=== PATIENT | male | born 1965 | race Caucasian/White ===

== ENCOUNTER 2021-07-13 17:00 | Inpatient (IN) | payer SELFPAY ==
[2021-07-13] VITALS (21 sets, daily range): BP systolic 92–174; BP diastolic 68–99; PULSE 55–108; RESP 12–22; TEMP 36.7–36.8; O2SAT 95–100; BMI 23.7
--- NOTE | 2021-07-13 17:03 | ECG_ITS ---
Measurements Intervals [place] Rate: 53 P: 8 OR: 164 QRS: -3 QRSD: 102 T: 21 QT: 403 QTc: 378 Interpretive Statements SINUS BRADYCARDIA VOLTAGE CRITERIA FOR LVH INFERIOR ST ELEVATION MYOCARDIAL INJURY- SUBACUTE ABNORMAL ECG Electronically Signed On 07-13-2021 17:49:45 CDT by Eran Orellana D.O.
--- NOTE | 2021-07-13 17:03 | ED.CHESTPAIN ---
HPI - Chest Pain General Chief Complaint: Chest Pain Stated Complaint: STEMI Source: RN notes reviewed History of Present Illness HPI narrative: Patient presents emergency department from home via EMS for chest pain. Patient states chest pain began 2 AM this morning. Pain is located over the left side of the chest described as a heaviness in nature the pain does not radiate associate with mild shortness of breath. Patient states he not take anything for the pain at home he denies any previous cardiac history but states he does have cardiac history in the family denies any fevers or chills abdominal pain nausea or vomiting Related Data Allergies Allergy/AdvReac Type Severity Reaction Status Date / Time Penicillins Allergy Unknown Unknown Verified 07/13/21 17:04 Review of Systems Review of Systems: Gen.: Denies fevers or chills ENT: Denies congestion Respiratory: Reports mild shortness of breath CV: See HPI GI: Denies abdominal pain nausea, emesis or diarrhea Musculoskeletal: Denies back pain or muscle pain Neuro: Denies numbness, tingling, weakness or focal weakness Skin: Denies rash Except as documented, all other systems reviewed and negative [facility] Past Medical History Medical History (Updated 07/13/21 @ 17:14 by Jey De Dios DO) Hypertension Family History Family History (Updated 07/13/21 @ 17:34 by Dom Dong MD) Father Acute myocardial infarction Social History Social History (Updated 07/13/21 @ 17:34 by Dom Dong MD) Smoking status: Never smoker Alcohol intake: current Substance use: never Exam Narrative: APPEARANCE: No acute distress, nontoxic, resting in bed EYES: EOMI HEENT: Normocephalic, atraumatic, OMM RESPIRATORY: No respiratory distress Clear to auscultation bilaterally with no rhonchi wheezing or rales. CARDIOVASCULAR: Regular rate and rhythm without murmurs rubs or gallops. ABDOMINAL: Soft, nontender, nondistended, no rebound or guarding MUSCULOSKELETAl: Moves all extremities. No clubbing, cyanosis or edema. NEURO: Awake and alert. Following commands, speech normal, no focal deficits SKIN:: Warm, dry. No rashes lesions or abrasions PSYCHIATRIC: Normal affect/mood, Course Course Emergency Course: Code STEMI declared by myself upon initial EMS call Called discussed with Dr. dong per cardiology will come in to take patient to Waste Treatment Operator. Request patient be started on heparin bolus as well as Brilinta 180 mg and Lipitor 80 mg x 1 Updated with patient and family plan for Waste Treatment Operator in agreement at this time Vital Signs Vital signs: Vital Signs Temperature 98.3 F 07/13/21 17:07 Pulse Rate 55 L 07/13/21 17:07 Respiratory Rate 17 07/13/21 17:07 Blood Pressure 139/86 07/13/21 17:07 Pulse Oximetry 98 07/13/21 17:07 Temperature 98.3 F 07/13/21 17:07 Pulse Rate 55 L 07/13/21 17:07 Respiratory Rate 17 07/13/21 17:07 Blood Pressure 139/86 07/13/21 17:07 Pulse Oximetry 98 07/13/21 17:07 MDM - Chest Pain Lab Data Result diagrams: 07/13/21 17:14 07/13/21 17:14 Labs: Lab Results 07/13/21 07/13/21 07/13/21 Range/Units 17:14 17:14 17:14 WBC 5.3 (4.5-10.0) K/mm3 RBC 4.26 L (4.6-6.20) M/mm3 Hgb 13.2 L (14.0-18.0) g/dL Hct 38.4 L (42.0-52.0) % MCV 90.1 (80-100) fl MCH 31.0 (26-34) pg MCHC 34.4 (32-36) g/dl RDW 12.2 (11.5-14.5) % Plt Count 218 (150-375) k/mm3 MPV 10.3 (7.4-10.4) fl Immature Gran % (Auto) 0.2 (0-0.5) % Neut % (Auto) 58.0 (45.5-73.1) % Lymph % (Auto) 27.4 (18.3-44.2) % [place] % (Auto) 13.3 H (2.6-8.5) % Eos % (Auto) 0.9 (0-4.4) % Baso % (Auto) 0.2 (0.2-1.2) % Lymph # (Auto) 1.46 (0.9-3.2) K/mm3 [place] # (Auto) 0.7 H (0.1-0.6) K/mm3 Eos # (Auto) 0.1 (0-0.3) K/mm3 Baso # (Auto) 0.0 (0.0-0.1) K/mm3 Abs Immat Gran (auto) 0.01 (0.00-0.031) K/mm3 Absolute Neuts (auto) 3.1 (1.3-6.7) K/mm3 Absolu
[2021-07-13] MEDS: HEPARIN SODIUM 5,000 UNITS/ML VIAL 4000 UNITS IV PUSH (17:19)
[2021-07-13] MEDS: TICAGRELOR 90 MG TABLET 180 MG PO (17:20)
[2021-07-13 17:23] LABS: Basophils Percent Auto 0.2 % (0.2-1.2); Eosinophils Absolute Auto 0.1 K/mm3 (0-0.3); Eosinophils Percent Auto 0.9 % (0-4.4); Hematocrit 38.4 % (42.0-52.0); Hemoglobin 13.2 g/dL (14.0-18.0); Immature Granulocyte Absolute 0.01 K/mm3 (0.00-0.031); Immature Granulocyte Percent A 0.2 % (0-0.5); Lymphocytes Absolute Auto 1.46 K/mm3 (0.9-3.2); Lymphocytes Percent Auto 27.4 % (18.3-44.2); Mean Corpuscular HGB Conc 34.4 g/dl (32-36); Mean Corpuscular Volume 90.1 fl (80-100); Mean Platelet Volume 10.3 fl (7.4-10.4); Monocytes Absolute Auto 0.7 K/mm3 (0.1-0.6); Monocytes Percent Auto 13.3 % (2.6-8.5); Neutrophils Absolute Auto 3.1 K/mm3 (1.3-6.7); Platelet Count Result 218 k/mm3 (150-375); Red Blood Count 4.26 M/mm3 (4.6-6.20); Red Cell Distribution Width 12.2 % (11.5-14.5); White Blood Count 5.3 K/mm3 (4.5-10.0)
--- NOTE | 2021-07-13 17:27 | PM.IMHP ---
H&P: HPI History of Present Illness Date/Time: 07/13/21 17:27 Date of Service: 07/13/2021 Chief complaint: Chest pain for approximately 17 hours HPI: 55-year-old male with hypertension, no known prior personal cardiac history; family history of CAD. Patient was brought to [facility] Emergency Room via EMS this afternoon with complaints of chest pain that started about 2:00 a.m. last night. Patient states that the chest pain was initially intermittent, followed by more persistent chest pain associated with shortness of breath and dizziness. He denied any palpitation, loss of consciousness . He denies any personal history of known CAD. His EKG showed sinus bradycardia, heart rate 53 beats per minute, ST-elevation in the inferior leads. Cardiac catheterization lab was activated for primary PCI. At the time of evaluation in the cardiac cath lab technologist, patient had ongoing chest discomfort. Prior to arrival to the cardiac cath lab technologist, patient had received aspirin, 4000 units of heparin bolus, 180 mg p.o. Ticagrelor. Patient states that he was diagnosed with hypertension several years ago, and has not seen a physician for many years. He states that he takes amlodipine at home. Patient is a nonsmoker, denies excess alcohol illicit drugs. Patient underwent emergent coronary angiogram which showed 100% thrombotic occlusion of distal IHZ-[id number]-yvfirli vessel with diffuse calcific stenosis in the proximal-mid segments of the RCA. He underwent complex PCI with balloon angioplasty and stenting of distal, mid and proximal segments of the RCA with placement of 3 sirolimus eluting stents in overlapping fashion from distal to proximal ( 3.0 x 35 mm, 3.5 x 35 mm, 4.0 x 30 mm) with good angiographic and intravascular ultrasound results and quaker of KA[place]LYNN 3 flow. Patient's chest pain resolved after a successful PCI. Chief Complaint: Chest pain Review of Systems Review of Systems: General: Negative for fever, chills, fatigue Psychological: Negative for anxiety, depression Ophthalmic: negative for loss of vision ENT: Negative for epistaxis, headaches Allergy and immunology: Negative for hives, nasal congestion Hematologic and lymphatic: Negative for overt bleeding problems Endocrine: Negative for hot flashes, palpitations Respiratory: Negative for cough, hemoptysis Cardiovascular: Positive for chest pain and shortness of breath; positive for dizziness Gastrointestinal: Negative for abdominal pain, nausea, vomiting, hematochezia Musculoskeletal: Negative for myalgia, joint pains Neurological: Negative for weakness Dermatological: Negative for rash, skin discoloration [facility] Past Medical History Medical History (Updated 07/13/21 @ 17:14 by Jey De Dios DO) Hypertension Family History Family History (Updated 07/13/21 @ 17:34 by Dom Haynes MD) Father Acute myocardial infarction Social History Social History (Updated 07/13/21 @ 17:34 by Dom Haynes MD) Smoking status: Never smoker Alcohol intake: current Substance use: never Meds Home Medications and Allergies Allergies Allergy/AdvReac Type Severity Reaction Status Date / Time Penicillins Allergy Unknown Unknown Verified 07/13/21 17:04 Vital Signs Vital Signs - 24 hr 07/13/21 17:07 Temperature 36.8 C Pulse Rate 55 L Respiratory Rate 17 Blood Pressure 139/86 Pulse Oximetry 98 Exam Narrative: PHYSICAL EXAMINATION: GENERAL: Alert, oriented, no acute distress MENTAL STATUS: anxious EYES: Extraocular movements intact, no pallor EARS: External ears appear normal, hearing grossly normal NOSE: Normal and patent, no discharge MOUTH: Mucous membranes moist, tongue normal NECK: Supple, no JVD CHEST: Good respiratory effort, clear to auscultation HEART: Normal rate, regular rhythm, normal S1 and S2, S4 gallop ABDOMEN: Soft, nontender NEUROLOGICAL: Alert, oriented, normal speech, no gross motor deficits MUSCULOSKELETAL: No major deformit
[2021-07-13 17:39] LABS: INR 0.9; Prothrombin Time 12.5 Seconds (11.1-14.7)
[2021-07-13 17:44] LABS: Anion Gap 9 mmol/L (8-16); Blood Urea Nitrogen 13 mg/dL (9-20); Calcium 8.8 mg/dL (8.4-10.2); Carbon Dioxide 24 mmol/L (22-30); Chloride 105 mmol/L (98-107); Estimated CRCL calculation 90 ml/min; Estimated Glomerular Filt Rate > 60; Glucose 159 mg/dL (65-110); Potassium 3.8 mmol/L (3.4-5.0); Sodium 138 mmol/L (137-145)
[2021-07-13 18:00] LABS: Troponin I 0.158 ng/mL (0.000-0.034)
--- NOTE | 2021-07-13 19:01 | WPDCARDPROC ---
Cardiac Cath Procedure Note Date of procedure:: 07/13/21 Performing physician:: Dom Haynes MD Procedure Procedure note:: EMERGENT CARDIAC CATHETERIZATION AND PERCUTANEOUS CORONARY INTERVENTION REPORT DATE OF PROCEDURE: 07/13/2021 INDICATION FOR PROCEDURE: INFERIOR ST-ELEVATION MYOCARDIAL INFARCTION BRIEF CLINICAL HISTORY:55-year-old male with hypertension, no known prior personal cardiac history; family history of CAD. Patient was brought to [facility] Emergency Room via EMS this afternoon with complaints of chest pain that started about 2:00 a.m. last night. Patient stateD that the chest pain was initially intermittent, followed by more persistent chest pain associated with shortness of breath and dizziness. He denied any palpitation, loss of consciousness . He denieD any personal history of known CAD. His EKG showed sinus bradycardia, heart rate 53 beats per minute, ST-elevation in the inferior leads. Cardiac catheterization lab was activated for primary PCI. At the time of evaluation in the veterinarian laboratory animal care prior to primary PCI, patient had ongoing chest discomfort. Prior to arrival to the veterinarian laboratory animal care, patient had received aspirin, 4000 units of heparin bolus, 180 mg p.o. Ticagrelor. PROCEDURES PERFORMED: 1. Emergent Left heart catheterization- Selective left and right coronary angiogram; left ventriculogram and hemodynamic assessment 2. Percutaneous coronary intervention- a) complex primary PCI with balloon angioplasty and stenting of occluded distal; diffusely diseased mid and proximal segments of the RCA with placement of 3 Biotronik sirolimus eluting stents in overlapping fashion from distal to proximal ( 3.0 x 35 mm, 3.5 x 35 mm, 4.0 x 30 mm) with good angiographic and intravascular ultrasound results, and presybeterian of KAITLYNN 3 flow b) intravascular ultrasound ( IVUS) of right coronary artery 3. Selective right common femoral angiogram 4. Moderate sedation-CPT code 29206 MODERATE SEDATION: Midazolam 1 mg; fentanyl 25 mcg. Start time 1737 , Stop time 1847 ; Total [id number] time 70 minutes; Adriana Granger RN was trained observer for moderate sedation. ACCESS SITE: Right common femoral artery PROCEDURE NOTE: After obtaining informed consent, patient was brought to catheterization lab and prepped and draped in a usual sterile manner. After local anesthesia with lidocaine, right common femoral artery access was taken with micropuncture needle followed by insertion of a 6 Swedish sheath. Selective left and right coronary angiogram was performed using 5 Swedish JL4 diagnostic catheter and JR4 guide catheter respectively. Orthogonal views were taken. After completion of PCI, a 5 Swedish pigtail catheter was advanced in the LV cavity and was flushed with normal saline. LV pressure measurement was performed. After this, left ventriculogram was performed. The catheter was flushed again, and gradient across the aortic valve was measured on the pullback of the catheter. FINDINGS: LEFT MAIN CORONARY: medium to large caliber vessel, no angiographically significant focal stenosis. The vessel gives rise to tortuous LAD and left circumflex branch. LEFT ANTERIOR DESCENDING ARTERY: the LAD is a medium caliber, tortuous vessel with diffuse about 50% stenosis in the proximal segment. The vessel tapers and reaches LV apex. First diagonal branch is a small to medium caliber vessel with high-grade about 90% stenosis in the proximal segment. Second diagonal branch is a medium caliber vessel without significant focal stenosis. LEFT CIRCUMFLEX ARTERY: The left circumflex artery is a medium caliber vessel with mild diffuse disease in the proximal segment. The vessel gives rise to medium caliber tortuous OM 1 branch with minor irregularities, and small caliber OM2 branch. Faint left to right collaterals are seen. RIGHT CORONARY ARTERY: The right coronary artery is a medium to large caliber vessel with diffuse about 60-70% stenosis in the p
--- NOTE | 2021-07-13 20:01 | PC.NURSE ---
Patient arrived to room ICU bed 8 at 1924. Bedside report received by the floor surfacer team RN.
--- NOTE | 2021-07-13 20:02 | ADMGEN ---
This patient, Justin Beck, was admitted to Intensive Care Unit-8 at 1925 from the laboratory engineer. Patient/family oriented to hospital policies and general routines including ID bracelet, bed and alarms, visiting hours, pain management, procedures, bathroom and other care routines, personal items, smoking policy, room service/diet, and visiting hours. Information on how to activate the Rapid Response Team has been discussed. Patient/Family are encouraged to report perceived risks to care and to ask questions if they do not understand what they are told or what they should do.
[2021-07-13] MEDS: SODIUM CHLORIDE 0.9% IV 1,000 ML 100 ML IV CONT (20:10)
[2021-07-13 21:52] LABS: Cholesterol 246 mg/dL (0-200); HDL Direct 40 mg/dL; Triglycerides 288 mg/dL (<150)
[2021-07-13] MEDS: METOPROLOL TARTRATE 25 MG TABLET PO (22:00)
[2021-07-13] MEDS: ATORVASTATIN 40 MG TABLET 80 MG PO (22:00)
[2021-07-13] MEDS: TICAGRELOR 90 MG TABLET (22:01)
[2021-07-13 22:03] LABS: LDL Cholesterol Direct 146 mg/dL
[2021-07-14] VITALS (19 sets, daily range): BP systolic 127–153; BP diastolic 79–99; PULSE 56–87; RESP 12–18; TEMP 36.8–37.2; O2SAT 93–99
[2021-07-14] MEDS: TICAGRELOR 90 MG TABLET PO ×2 (06:59→21:02)
[2021-07-14] MEDS: ASPIRIN 81 MG ENTERIC TABLET PO (08:41)
[2021-07-14] MEDS: METOPROLOL TARTRATE 25 MG TABLET PO ×2 (08:41→21:03)
[2021-07-14] MEDS: ATORVASTATIN 40 MG TABLET 80 MG PO (08:41)
[2021-07-14] MEDS: LOSARTAN POTASSIUM 25 MG TABLET PO (08:41)
--- NOTE | 2021-07-14 10:06 | PM.PNCARD ---
Progress Note: A&P Assessment and Plan (1) ST elevation (STEMI) myocardial infarction: Code(s): I21.3 - ST elevation (STEMI) myocardial infarction of unspecified site Status: Acute Assessment and Plan: Inferior STEMI 07/13/2021 requiring 3 drug-eluting stents. Good LV function. Stable overnight, will transfer to IMU. Reviewed heart healthy diet, need for dual anti-platelet therapy, other cardiac medications, exercise, etc. Probably discharge tomorrow. Patient will not be able to afford Brilinta. Likely will switch to Plavix at some point. (2) Hypertension: Code(s): I10 - Essential (primary) hypertension Status: Acute Assessment and Plan: Reasonable though not perfectly controlled at this time (3) Hyperlipidemia: Code(s): E78.5 - Hyperlipidemia, unspecified Status: Acute Assessment and Plan: Reviewed hyperlipidemia was patient, now on high-dose statin therapy. (4) Elevated blood sugar: Code(s): R73.9 - Hyperglycemia, unspecified Status: Acute Assessment and Plan: Elevated blood sugar on admission. Will recheck tomorrow and include an A1c. Subjective Date/time seen: 07/14/21 10:06 Follow-up for inferior STEMI. Admitted 07/13/2021 with acute inferior myocardial infarction. Had an occluded distal RCA with diffuse disease of the proximal mid segments requiring 3 drug-eluting stents by Dr. Haynes. EF 70% with inferior wall hypokinesis. Diffuse 50% proximal Left anterior descending stenosis, 90% stenosis of small to medium 1st diagonal. Date of service 07/14/2021. Doing well overnight with no chest discomfort or arrhythmias. Reviewed diet, enjoys burgers and fries fried foods, heavily sweetened beverages. Review of Systems Constitutional: Constitutional: Reports fatigue (Did not sleep well) ENT: Denies epistaxis Cardiovascular: Cardiovascular: Denies chest pain, Denies pedal edema, Denies leg edema and Denies palpitations Respiratory: Respiratory: Denies chest congestion and Denies dyspnea Gastrointestinal: Gastrointestinal: Denies abdominal pain Musculoskeletal: Musculoskeletal: Reports no additional musculoskeletal complaints Integumentary/Breasts: Skin/Breast: Reports system reviewed and no additional complaints, except as docu Neurologic: Reports system reviewed and no additional complaints, except as documented Exam Narrative: Pleasant alert male in no distress Const: General: comfortable and no acute distress HENMT: General nose exam: no epistaxis Eyes: EOM: EOMs intact bilaterally Neck: Neck: supple Resp: Effort & Inspection: normal respiratory effort Auscultation: clear to auscultation bilaterally Cardio: Rate: regular rate Rhythm: regular rhythm Heart sounds: no murmurs GI: GI Palp: Yes Soft to palpation and No Tenderness to palpation present (GI) Neuro: Cognition (Neuro): normal cognition Speech: normal speech Motor exam (neuro): Normal motor muscle tone present throughout Extrem: General: no edema and no pedal edema Other: Cath site right femoral artery is without ecchymosis or hematoma Psych: Mental Status: mental status grossly normal Affect: normal affect Objective Data Vital Signs Vital Signs: Vital Signs - 24 hr 07/13/21 17:07 07/13/21 19:25 07/13/21 19:33 Temperature 98.3 F 98.1 F Pulse Rate 56 L 95 108 H Pulse Rate [Bilateral Pedal (Dorsalis Pedis) Palpation] Respiratory Rate 17 16 18 Blood Pressure 139/86 149/99 H 161/87 H Pulse Oximetry 98 100 98 07/13/21 19:48 07/13/21 20:00 07/13/21 20:03 Temperature 98.3 F Pulse Rate 96 95 95 Pulse Rate [Bilateral Pedal (Dorsalis Pedis) Palpation] Respiratory Rate 14 15 17 Blood Pressure 161/82 H 174/99 H 174/99 H Pulse Oximetry 100 98 98 07/13/21 20:18 07/13/21 20:48 07/13/21 21:18 Te
--- NOTE | 2021-07-14 11:07 | WPDCNINT ---
Assessment and Plan Assessment and plan (1) ST elevation (STEMI) myocardial infarction: Code(s): I21.3 - ST elevation (STEMI) myocardial infarction of unspecified site Status: Acute Assessment and Plan: STEMI status post PTCA/PCI with LYNSEY x3 to mid and proximal segments of RCA, EF 60-70% pain overall LV systolic function being preserved -preserved LV function -chest pain free -continue dual antiplatelet therapy, high-dose statin, losartan beta-harriet -cardiology following the patient (2) Hyperlipidemia: Code(s): E78.5 - Hyperlipidemia, unspecified Status: Acute Assessment and Plan: High-dose statin (3) Hypertension: Code(s): I10 - Essential (primary) hypertension Status: Acute Assessment and Plan: Continue losartan and beta-harriet Additional Plan Discussed with patient updated with his condition and care. He is very happy with the care he has received at [facility] in the ICU Code status: Full code Care time spent: 41 minutes This dictation may have been done utilizing a voice recognition system. Attempts have been made to correct errors. However, there may be uncorrected grammatical, spelling, and recognition errors present. Due to a high probability of clinically significant, life threatening deterioration, the patient required my highest level of preparedness to intervene emergently and I personally spent this critical care time directly and personally managing the patient. This critical care time included obtaining a history; examining the patient; pulse oximetry; ordering and review of studies; arranging urgent treatment with development of a management plan; evaluation of patient's response to treatment; frequent reassessment; and discussions with other providers. It was exclusive of separately billable procedures and treating other patients and teaching time. Please see Assessment and Plan section and the rest of the note for further information on patient assessment and treatment Locker Room Manager Consult Note Consult date: 07/14/21 Time Seen: 07:09 Reason for consult: STEMI status post PTCA/PCI with LYNSEY x3 to mid and proximal segments of RCA, EF 60-70% pain overall LV systolic function being preserved HPI: Justin Beck is a 55 year old male past medical history of hypertension, history of coronary artery disease presented the ED with substernal chest pain, associated with shortness of breath, dizziness. He denies any radiation, nausea, vomiting. EKG revealed acute inferior myocardial injury. Was taken to the laboratory phlebotomist any found to have an diffuse disease off mid and proximal segments of RCA, status post PTCA/PCI with balloon angioplasty and LYNSEY x3 with good angiographic result. EF on ventriculogram was 60-70% with preserved LV systolic function. Patient was transferred to the ICU for further management 07/14/2021: Patient seen examined the ICU this morning. Very pleasant personality, denies any chest pain, shortness of breath, abdominal pain, nausea vomiting at this time. Patient states he does not smoke drinks alcohol occasionally and denies any illicit drug use. 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 Hemodynamically stable, afebrile, adequate urine output Review of Systems Review of Systems: All systems reviewed & are unremarkable except as noted in HPI and below PMFSH Past Medical History Medical History (Updated 07/14/21 @ 10:10 by Sarahy Sifuentes MD) Hyperlipidemia Hypertension Family History Family History (Updated 07/14/21 @ 10:25 by Sarahy Sifuentes MD) Father Acute myocardial infarction 1st heart attack at age 68, had several stents, valve replacement of dementia Mother Murmur, cardiac Social History Social History (Updated 07/14/21 @ 10:25 by Sarahy Sifuentes MD) Social History: [employer]s [employer] Smoking status: Never smoker Second hand tobacco smoke exposure: Yes Alcohol intake: current
[2021-07-14] MEDS: diphenhydrAMINE HCl CAP 25 MG CAPSULE PO (22:21)
[2021-07-15] VITALS (8 sets, daily range): BP systolic 112–137; BP diastolic 87–96; PULSE 56–74; RESP 12–18; TEMP 36.6–36.9; O2SAT 96–98
[2021-07-15 04:27] LABS: Hemoglobin A1C 5.8 % (<5.7)
[2021-07-15 04:29] LABS: Anion Gap 6 mmol/L (8-16); Blood Urea Nitrogen 12 mg/dL (9-20); Calcium 9.1 mg/dL (8.4-10.2); Carbon Dioxide 27 mmol/L (22-30); Chloride 107 mmol/L (98-107); Estimated CRCL calculation 82 ml/min; Estimated Glomerular Filt Rate > 60; Glucose 105 mg/dL (65-110); Sodium 140 mmol/L (137-145)
[2021-07-15] MEDS: ATORVASTATIN 40 MG TABLET 80 MG PO (09:43)
[2021-07-15] MEDS: METOPROLOL TARTRATE 25 MG TABLET PO (09:43)
[2021-07-15] MEDS: LOSARTAN POTASSIUM 25 MG TABLET PO (09:43)
[2021-07-15] MEDS: ASPIRIN 81 MG ENTERIC TABLET PO (09:43)
[2021-07-15] MEDS: TICAGRELOR 90 MG TABLET PO (09:44)
--- NOTE | 2021-07-15 09:45 | PM.DS ---
DS: Admitting Diagnosis Discharge Date 07/15/2021 Admitting Diagnosis Chest pain DS: Discharge Diagnosis Discharge Diagnosis (1) ST elevation (STEMI) myocardial infarction: Code(s): I21.3 - ST elevation (STEMI) myocardial infarction of unspecified site Status: Acute Assessment and Plan: Inferior STEMI 07/13/2021 requiring 3 drug-eluting stents. No acute events overnight Medical therapy with ASA, high dose statin, losartan, metoprolol. On Brilinta now but cannot afford this as an outpatient. Will shift him to Plavix. Reviewed dietary modifications, aerobic exercise, importance of medication compliance. Review echo results when available. He is stable and appropriate for discharge home today. (2) Hypertension: Code(s): I10 - Essential (primary) hypertension Status: Acute Assessment and Plan: Well controlled at this point (3) Hyperlipidemia: Code(s): E78.5 - Hyperlipidemia, unspecified Status: Acute Assessment and Plan: On high dose statin therapy. (4) Elevated blood sugar: Code(s): R73.9 - Hyperglycemia, unspecified Status: Acute Assessment and Plan: Elevated blood sugar on admission. A1c 5.8. DS: Summary Hospital Course Hospital Course: Patient presented to the emergency department via EMS with complaints of chest pain that had been ongoing since early the previous morning. In the emergency department his EKG showed sinus bradycardia with ST elevation in the inferior leads. Therefore, he was emergently taken to the cardiac catheterization lab for left heart catheterization and primary PCI. He was found to have 100% occlusion of the distal RCA. He also had diffuse stenosis of the proximal LAD, high-grade 90% stenosis in the proximal segment of a small to medium caliber 1st diagonal branch, and mild diffuse disease of the proximal circumflex. His overall left ventricular 6. Left ventricular function was preserved, ejection fraction about 60-70% with inferior wall hypokinesis. He underwent complex PTCA and stenting of the occluded distal RCA, diffusely diseased mid and proximal segments of the RCA with placement of three overlapping Biotronik sirolimus eluting stents. There was a good angiographic result with restorationist of KAITLYNN 3 flow. He recovered as expected in the ICU without any postprocedural complications. He has been stable and free from any chest pain or other cardiovascular complaints. He is stable for discharge home today. Time Spent with Patient Time attestation: Total time spent providing and/or coordinating discharge services: Time spent: Greater than 30 minutes Exam Narrative: Pleasant alert male in no distress Const: General: comfortable and no acute distress HENMT: General nose exam: no epistaxis Eyes: EOM: EOMs intact bilaterally Neck: Neck: supple Resp: Effort & Inspection: normal respiratory effort Auscultation: clear to auscultation bilaterally Cardio: Rate: regular rate Rhythm: regular rhythm Heart sounds: no murmurs Neuro: Cognition (Neuro): normal cognition Speech: normal speech Motor exam (neuro): Normal motor muscle tone present throughout Extrem: General: no edema and no pedal edema Other: Cath site right femoral artery free from hematoma, bleeding, bruit. Mild, small area of ecchymosis. Psych: Mental Status: mental status grossly normal Affect: normal affect DS: Data Data Completed and Pending Completed studies during hospitalization: Echocardiogram 07/15/2021 1. Complete two-dimensional, color flow and Doppler transthoracic echocardiogram is performed. 2. Strain analysis performed. 3. Left ventricular chamber dimension is normal. 4. Left ventricular systolic function is normal, estimated at 55-60%. 5. There is mildly increased left ventricular wall thicknes
--- NOTE | 2021-07-15 10:32 | ECHO_ITS ---
Patient Info Name: Justin Beck Age: 55 years : 1965 Gender: Male Ht: 73 in Wt: 180 lbs BSA: 2.05 m2 HR: 60 bpm BP: 137 / 87 mmHg Heart Rhythm: Sinus Rhythm Exam Date: 07/15/2021 8:50 AM Exam Location: [facility] Patient Status: Inpatient Admit Date: 07/13/2021 Staff Ordering Physician: Sarahy Sifuentes MD Uniform Cap Operator: Glynn Latham, MICHELLE, RT Attending Provider: Dom Haynes MD Referring Physician: Bear OVERTON; Exam Type: CA echo doppler color flow Study Info Indications I24.0 - Acute coronary thrombosis not resulting in myocardial infarction Complete two-dimensional, color flow and Doppler transthoracic echocardiogram is performed. Strain analysis performed. Summary 1. Complete two-dimensional, color flow and Doppler transthoracic echocardiogram is performed. 2. Strain analysis performed. 3. Left ventricular chamber dimension is normal. 4. Left ventricular systolic function is normal, estimated at 55-60%. 5. There is mildly increased left ventricular wall thickness. 6. The left ventricular diastolic function is grade I diastolic dysfunction. 7. Global longitudinal strain is abnormal at -12 %. 8. The basal inferior wall, and basal inferoseptal are hypokinetic. 9. There is mild tricuspid valve regurgitation. Left Ventricle Left ventricular chamber dimension is normal. Left ventricular systolic function is normal, estimated at 55-60%. There is mildly increased left ventricular wall thickness. The left ventricular diastolic function is grade I diastolic dysfunction. Global longitudinal strain is abnormal at -12 %. The basal inferior wall, and basal inferoseptal are hypokinetic. All other schafer appear normal. Right Ventricle Right ventricular chamber dimension is normal. Right ventricular systolic function is normal. Left Atria Left atrial chamber dimension is normal. Right Atria Right atrial chamber dimension is normal. Atrial Septum Intact interatrial septum visualized by color flow imaging. Aortic Valve The aortic valve is trileaflet. There is mild aortic valve sclerosis. There is no aortic valve stenosis. There is trace aortic valve regurgitation. Pulmonic Valve The pulmonic valve is normal. There is no pulmonic valve stenosis. There is trace pulmonic regurgitation. Mitral Valve The mitral valve has normal leaflets. There is no mitral valve stenosis. There is trace mitral valve regurgitation. Tricuspid Valve The tricuspid valve leaflets are normal. There is no significant tricuspid valve stenosis. There is mild tricuspid valve regurgitation. Pericardium/Pleural The pericardium appears normal. There is no pericardial effusion. Inferior Vena Cava Normal inferior vena cava with >50% collapse upon inspiration consistent with normal right atrial pressure, 5 mmHg. Aorta The aortic root size at the sinus of Valsalva is normal. Left Ventricular Outflow Tract Name Value Normal LVOT 2D LVOT Diameter 2.0 cm LVOT Doppler LVOT Peak Gradient 3 mmHg LVOT Mean Gradient 2 mmHg
== END 2021-07-15 12:40 | disposition home or self-care (01) | DRG 174 ==
LOC: ANHED 17:17 → ANHICU 07-14 08:27
PROVIDERS: Internal Medicine Cardiovascular Disease; Admitting Provider Internal Medicine Cardiovascular Disease; Emergency Provider Emergency Medicine; PCP Emergency Medicine; Visit Provider Internal Medicine Cardiovascular Disease
PROC: 4A023N7 Measurement of Cardiac Sampling and Pressure, Left Heart, Percutaneous Approach (ICD-10-PCS; CPT 93452; principal; 2021-07-13 17:05)
PROC: 027036Z Dilation of Coronary Artery, One Artery with Three Drug-eluting Intraluminal Devices, Percutaneous Approach (ICD-10-PCS; 2021-07-13 17:05)
PROC: 027036Z Dilation of Coronary Artery, One Artery with Three Drug-eluting Intraluminal Devices, Percutaneous Approach (ICD-10-PCS; 2021-07-13 17:05)
DX: I21.11 ST elevation (STEMI) myocardial infarction involving right coronary artery (principal); I10 Essential (primary) hypertension; I25.10 Atherosclerotic heart disease of native coronary artery without angina pectoris; E78.5 Hyperlipidemia, unspecified; R73.9 Hyperglycemia, unspecified
CPT/HCPCS: 36415; 80048; 80061; 83036; 84484; 85025; 85610; 85730; 92978; 93005; 93306; 93458; 96374; 99291; A9270; C1725; C1753; C1769; C1874; C1887; C1894; C9606; J0583; J1644; J2250; J3010; J7030; J7040

== ENCOUNTER 2022-12-18 09:13 | Outpatient (CLI) | payer SELFPAY ==
--- NOTE | 2022-12-18 | EST_ITS ---
Patient Info Name: Justin Beck Age: 57 years : 1965 Gender: Male Ht: 74 in Wt: 180 lbs BSA: 2.06 m2 HR: 75 bpm BP: 169 / 108 mmHg Heart Rhythm: Sinus Rhythm Exam Date: 12/18/2022 10:38 AM Exam Location: [facility] Stress Patient Status: Outpatient Admit Date: 12/18/2022 Staff Ordering Physician: Dom Hanyes MD Attending Provider: Dom Haynes MD Exercise Technologist: Anna Marcos CT Nurse: broderick whitlock Exam Type: CA stress test treadmill w NM Study Info Indications I25.720 - Atherosclerosis of autologous artery coronary artery bypass graft(s) with unstable angina pectoris A nuclear stress test was performed. Summary 1. No abnormal ST-T wave changes with lexiscan. 2. Resting hypertension, 169/108, with a hypertensive blood pressure response to exercise, 223/102 mmHg. 3. Markedly decreased exercise tolerance, only 4.16 minutes achieved. 4. Nuclear test results to follow. Protocol: Scot Stress ECG Details Stage: REST Duration (min): 2 min : 5 sec Speed (mph): 0.0 Grade (%): 0 HR (bpm): 77 SBP (mmHg): 169 DBP (mmHg): 108 METS: --- Stage: REST Duration (min): 6 min : 10 sec Speed (mph): 0.0 Grade (%): 0 HR (bpm): 79 SBP (mmHg): 169 DBP (mmHg): 108 METS: --- Stage: STAGE 1 Duration (min): 1 min : 0 sec Speed (mph): 1.7 Grade (%): 10 HR (bpm): 95 SBP (mmHg): 169 DBP (mmHg): 108 METS: --- Stage: STAGE 1 Duration (min): 2 min : 0 sec Speed (mph): 1.7 Grade (%): 10 HR (bpm): 110 SBP (mmHg): 169 DBP (mmHg): 108 METS: --- Stage: STAGE 1 Duration (min): 3 min : 0 sec Speed (mph): 1.7 Grade (%): 10 HR (bpm): 122 SBP (mmHg): 210 DBP (mmHg): 106 METS: --- Stage: STAGE 2 Duration (min): 1 min : 0 sec Speed (mph): 2.5 Grade (%): 12 HR (bpm): 136 SBP (mmHg): 210 DBP (mmHg): 106 METS: --- Stage: STAGE 2 Duration (min): 1 min : 16 sec Speed (mph): 2.5 Grade (%): 12 HR (bpm): 139 SBP (mmHg): 210 DBP (mmHg): 106 METS: --- Stage: RECOVERY Duration (min): 0 min : 43 sec Speed (mph): 0.0 Grade (%): 0 HR (bpm): 125 SBP (mmHg): 217 DBP (mmHg): 100 METS: --- Stage: RECOVERY Duration (min): 1 min : 43 sec Speed (mph): 0.0 Grade (%): 0 HR (bpm): 109 SBP (mmHg): 217 DBP (mmHg): 100 METS: --- Stage: RECOVERY Duration (min): 2 min : 43 sec Speed (mph): 0.0 Grade (%): 0 HR (bpm): 93 SBP (mmHg): 223 DBP (mmHg): 102 METS: --- Stage: RECOVERY Duration (min): 3 min : 43 sec Speed (mph): 0.0 Grade (%): 0 HR (bpm): 90 SBP (mmHg): 223 DBP (mmHg): 102 METS: --- Stage: RECOVERY Duration (min): 4 min : 43 sec Speed (mph): 0.0 Grade (%): 0 HR (bpm): 89 SBP (mmHg): 223 DBP (mmHg): 102 METS: --- Stage:
--- NOTE | ~2022-12-18 | NM_ITS ---
EXAMINATION: NM octavio stress w perfusion DATE: 12/18/2022 11:42 INDICATION: Coronary atherosclerosis of lumbee artery of lumbee heart with stable angina. TECHNIQUE: Rest images were obtained following intravenous administration of 10.3 mCi Tc99m tetrofosm in (Myoview). The patient was infused intravenously with Lexiscan (regadenoson). Then, 32.6 mCi Tc99m tetrofosmin (Myoview) was administered intravenously, and stress images were obtained. Data was terry nstructed into short axis and horizontal and vertical long axis SPECT images. Gated SPECT images were also obtained. COMPARISON: None. FINDINGS: There is no definite reversible or fixed perfusion abnormality to suggest ischemia or infar ction. There is no segmental wall motion abnormality. Left ventricular ejection fraction measures 6 7%. IMPRESSION: 1. No definite ischemia or infarct. 2. Normal left ventricular ejection fraction measuring 67%. Reviewed, dictated and finalized at location A. [facility]
== END 2022-12-18 09:14 | disposition home or self-care (01) ==
PROVIDERS: PCP Emergency Medicine; Visit Provider Internal Medicine Cardiovascular Disease
DX: I25.118 Atherosclerotic heart disease of native coronary artery with other forms of angina pectoris (principal); I25.2 Old myocardial infarction; Z95.820 Peripheral vascular angioplasty status with implants and grafts
CPT/HCPCS: 78452; 93017; A9502

== ENCOUNTER 2023-04-28 14:12 | Inpatient (IN) | payer SELFPAY ==
[2023-04-28] VITALS (29 sets, daily range): BP systolic 155–214; BP diastolic 94–122; PULSE 68–95; RESP 11–20; TEMP 36.4–36.9; O2SAT 95–100; BMI 23.2
--- NOTE | ~2023-04-28 | XR_ITS ---
EXAMINATION: XR chest 2V DATE: 04/28/2023 14:36 INDICATION: Left anterior chest pain. TECHNIQUE: Frontal and lateral views of the chest were obtained. COMPARISON: None. FINDINGS: There is mild scarring at the lung apices. No pleural effusion or pneumothorax. The heart s ize is normal. There is a moderate-sized hiatal hernia. IMPRESSION: 1. Moderate-sized hiatal hernia. Reviewed, dictated and finalized at location A.
--- NOTE | ~2023-04-28 | CT_ITS ---
EXAMINATION: CT abdomen pelvis w con DATE: 04/28/2023 15:43 INDICATION: Blood in stool. TECHNIQUE: Computed tomography (CT) of the abdomen and pelvis was performed with 100 mL Omnipaque 350 intravenous contrast. Automated exposure control and iterative reconstruction technique were employe d. The dose-length product was 391.51 mGy-cm. COMPARISON: None. FINDINGS: The visualized portions of the lung bases demonstrate mild atelectasis. A calcified right l david nodule is consistent with old granulomatous disease. No pleural effusion. The heart size is amanda l. There are coronary artery calcifications. No pericardial effusion. There is a moderate-sized slidi ng hiatal hernia. There are cysts in the liver measuring up to 4 mm. Calcifications in the liver and spleen are consistent with old granulomatous disease. The gallbladder, pancreas, adrenal glands, and right kidney are normal. There are 2 mm and 3 mm stones in the left kidney. There is a 2.0 cm cyst in left kidney. The prostate is moderately enlarged. There are no dilated loops of bowel. The appendix is normal. There are no pathologically enlarged lymph nodes. There is calcified atherosclerosis of th e aorta and many of the other arteries. There is no free intraperitoneal fluid. There is a supraumbil ical ventral hernia containing fat. There is mild thoracolumbar spondylosis. There is mild chronic an terior wedging of T11-L1 vertebral bodies. IMPRESSION: 1. Moderate-sized sliding hiatal hernia. 2. Supraumbilical ventral hernia containing fat. Reviewed, dictated and finalized at location A.
--- NOTE | 2023-04-28 14:13 | ECG_ITS ---
Measurements Intervals [place] Rate: 74 P: 23 SD: 172 QRS: -17 QRSD: 94 T: 21 QT: 356 QTc: 397 Interpretive Statements SINUS RHYTHM LEFT VENTRICULAR HYPERTROPHY AND ST-T CHANGE INFERIOR ST ELEVATION MYOCARIDAL INFARCT- SUBACUTE ABNORMAL ECG COMPARED TO ECG 07/13/2021 17:05:38 SINUS RHYTHM NOW PRESENT Electronically Signed On 04-28-2023 14:49:24 CDT by Eran Orellana D.O.
--- NOTE | 2023-04-28 14:49 | ED.CHESTPAIN ---
HPI - Chest Pain General Chief Complaint: Chest Pain Stated Complaint: having a heart attack Time Seen by Provider: 04/28/23 14:23 History of Present Illness HPI narrative: 57-year-old male presenting with chest pain that started this morning, he states that it does feel like the last and he had a heart attack, he does report that the last few days he has been noticing dark stools and some bleeding, however he did not want to come into the hospital, he was out of town for a wedding and decided to stop taking his aspirin and Plavix because he was thinking that it would help with the bleeding. He does endorse diaphoresis, pain that seems to radiate down to his left arm, feels like when he had a heart attack here 2 years ago Related Data Allergies Allergy/AdvReac Type Severity Reaction Status Date / Time Penicillins Allergy Unknown Unknown Verified 04/28/23 14:22 Review of Systems Review of Systems: CONST: No fever. HEENT: No sore throat C/V: Chest pain RESP: Difficulty breathing GI: Lower GI bleed, nausea : No dysuria. M/S: Left hip SKIN: No rash. NEURO: [No headache or focal numbness or weakness] PSYCH: [No depression] [facility] Past Medical History Medical History Hyperlipidemia Hypertension Family History Family History Father Acute myocardial infarction 1st heart attack at age 68, had several stents, valve replacement of dementia Mother Murmur, cardiac Social History Social History Social History: Orbotix Smoking status: Never smoker Second hand tobacco smoke exposure: Yes Alcohol intake: current Drinks per week: 4 Substance use: current Substance use type: does not use Spiritual care concerns: No Exam Narrative: EXAMINATION OF ORGAN SYSTEMS/BODY AREAS: Constitutional: Vital signs per nursing GENERAL:[No acute distress, non-toxic appearing.] HEAD: Normal with no signs of head trauma. EYES: EOMI, conjunctiva normal ENT: Hearing grossly intact LUNGS: Nonlabored breathing. HEART: [Regular rate and rhythm] ABD: [Soft], [nontender to palpation] RECTAL: There is watery brown stool on exam which is hemoccult positive EXT: Normal range of motion SKIN: [No rashes or lesions.] NEURO: [Alert and oriented x 3. No gross focal sensory or strength deficits.] PSYCH: Normal affect Course Vital Signs Vital signs: Vital Signs Temperature 98.5 F 04/28/23 14:18 Pulse Rate 77 04/28/23 14:18 Respiratory Rate 16 04/28/23 14:18 Blood Pressure 205/103 H 04/28/23 14:18 Pulse Oximetry 100 04/28/23 14:18 Oxygen Delivery Room Air 04/28/23 14:18 Temperature 98.5 F 04/28/23 14:18 Pulse Rate 74 04/28/23 16:21 Respiratory Rate 14 04/28/23 16:21 Blood Pressure 191/109 H 04/28/23 16:21 Pulse Oximetry 100 04/28/23 16:21 Oxygen Delivery Room Air 04/28/23 14:18 MDM - Chest Pain MDM Narrative Medical decision making narrative: ED COURSE AND MEDICAL DECISION MAKINyoM presenting with chest pain and LGIB. EKG done in triage on my evaluation showing elevations in inferior leads and depression in avL; his only prior EKG is from 2020 when he had greater inferior lead elevation and less avL depression and was found to have STEMI with 100% occlusion in RCA and stented. Given this EKG I am quite concerned for acute abnormality, did immediately go see the patient however he had already had, chest x-ray, I did therefore paged cardiology on-call however had not received any response back, by this time the patient had returned from x-ray and I was able to elicit the history that he had a lower GI bleed, and had also noted hemoccult + stool on exam; his history does appear quite concerning so I did activate laborer livestock. Dr Perez did evaluate EKG at bedside and felt
--- NOTE | 2023-04-28 14:50 | PC.NURSE ---
Cardiology in room to see pt.
[2023-04-28 14:53] LABS: Basophils Percent Auto 0.4 % (0.2-1.2); Eosinophils Percent Auto 0.8 % (0-4.4); Hematocrit 44.3 % (42.0-52.0); Hemoglobin 14.9 g/dL (14.0-18.0); Immature Granulocyte Absolute 0.01 K/mm3 (0.00-0.031); Immature Granulocyte Percent A 0.2 % (0-0.5); Lymphocytes Absolute Auto 1.02 K/mm3 (0.9-3.2); Lymphocytes Percent Auto 20.7 % (18.3-44.2); Mean Corpuscular HGB Conc 33.6 g/dl (32-36); Mean Corpuscular Volume 95.1 fl (80-100); Mean Platelet Volume 10.4 fl (7.4-10.4); Monocytes Absolute Auto 0.6 K/mm3 (0.1-0.6); Monocytes Percent Auto 11.2 % (2.6-8.5); Neutrophils Absolute Auto 3.3 K/mm3 (1.3-6.7); Neutrophils Percent Auto 66.7 % (45.5-73.1); Platelet Count Result 213 k/mm3 (150-375); Red Blood Count 4.66 M/mm3 (4.6-6.20); Red Cell Distribution Width 12.9 % (11.5-14.5); White Blood Count 4.9 K/mm3 (4.5-10.0)
[2023-04-28 15:03] LABS: INR 0.9; Prothrombin Time 12.1 Seconds (11.1-14.7)
[2023-04-28 15:17] LABS: Partial Thromboplastin Time < 20.0 SECONDS (22.3-36.8)
--- NOTE | 2023-04-28 15:21 | PM.CNCAR ---
Assessment and Plan Assessment and plan (1) Chest pain due to CAD: Code(s): I25.119 - Atherosclerotic heart disease of syc[place] coronary artery with unspecified angina pectoris Status: Acute Assessment and Plan: He has no multivessel coronary artery disease involving the RCA, LAD, 1st diagonal branch, and the circumflex artery. He has been having intermittent chest pain for the past month with an episode of more severe chest pain earlier today. His EKG showed subtle ST elevation in lead III and ST depression in aVL, but no acute ischemic changes consistent with STEMI. These changes are consistent with his prior inferior IN. No indication for emergent coronary angiogram, furthermore, not a candidate for angiogram/poss. PCI at this time in the setting of GI bleeding. His first troponin level is negative. Repeat EKG if he has recurrence of chest pain. SL nitro p.r.n. Restart home medications of Ranexa, Imdur. Since he is reporting blood in stools but Hgb stable, can hold plavix but continue ASA. Continue to trend troponin. (2) Coronary artery disease: Code(s): I25.10 - Atherosclerotic heart disease of syc[place] coronary artery without angina pectoris Status: Acute Assessment and Plan: As above. (3) Hyperlipidemia: Code(s): E78.5 - Hyperlipidemia, unspecified Status: Acute Assessment and Plan: Continue statin (4) Hypertension: Code(s): I10 - Essential (primary) hypertension Status: Acute Assessment and Plan: Above goal. He has not been taking his antihypertensives for the past few days. Restart home medications of losartan and metoprolol. History of Present Illness History of Present Illness Consult date/time: 04/28/23 15:21 Requesting physician: Shelly Marshall MD Consult reason: chest pain Reason For Visit: LGIB/Chest Pain Narrative: Justin Beck is a 57 year old male with coronary artery disease with a history of inferior ST-elevation IN in July 2021 status post stenting of the distal, mid, and proximal RCA with placement of 3 drug-eluting stents. Since his intervention, he has reported chest discomfort intermittently which prompted a nuclear stress test to be performed earlier this year which was negative for ischemia. He presents to the emergency department today with a chief complaint of chest pain. The patient states that he has had enter mid and chest pain for the past month. Chest pain is not associated with exertion and seems to be somewhat random. The chest pain was worse today which is what prompted him to present to the emergency department. He also states that for the past week or so he has been passing blood in his stools. Because of this, he decided to discontinue all of his medications including his aspirin and Brilinta this past Thursday. He ss being kept on dual anti-platelet therapy for longer than the standard one year period because of his multivessel disease involving multiple coronary territories. Prior to this, he does not report any missed doses of medication. He denies any palpitations, shortness of breath, syncope, presyncope. At the time of my visit with him he is free from any chest pain and is resting comfortably on a stretcher in the emergency department. Review of Systems Review of Systems: All systems reviewed & are unremarkable except as noted in HPI and below PMFSH Past Medical History Medical History (Updated 04/29/23 @ 07:07 by Emerson Moore MD) History of ST elevation myocardial infarction (STEMI) Hyperlipidemia Hypertension Surgical History Surgical History H/O heart artery stent 3 drug-eluting stents RCA July 2021 Family History Family History Father Acute myocardial infarction 1st heart attack at age 68, had several stents, valve replacement of dementi
[2023-04-28 15:25] LABS: Alanine Aminotransferase 42 U/L (6-50); Albumin Level 4.6 g/dL (3.5-5.1); Alkaline Phosphatase 69 U/L (38-126); Anion Gap 9 mmol/L (8-16); Aspartate Amino Transferase 32 U/L (17-59); Bilirubin,Total 0.5 mg/dL (0.2-1.3); Blood Urea Nitrogen 11 mg/dL (9-20); Calcium 9.3 mg/dL (8.4-10.2); Carbon Dioxide 29 mmol/L (22-30); Chloride 102 mmol/L (98-107); Estimated CRCL calculation 89 ml/min; Estimated Glomerular Filt Rate > 60; Glucose 122 mg/dL (65-110); Lipase 179 U/L (23-300); Potassium 3.7 mmol/L (3.4-5.0); Sodium 140 mmol/L (137-145)
[2023-04-28 15:36] LABS: Troponin I 0.025 ng/mL (0.000-0.034)
[2023-04-28] MEDS: ASPIRIN 81 MG CHEWABLE TABLET 324 MG PO (16:34)
[2023-04-28] MEDS: PANTOPRAZOLE SODIUM IV 40 MG VIAL IV PUSH (16:34)
[2023-04-28 17:37] LABS: Troponin I 0.249 ng/mL (0.000-0.034)
[2023-04-28] MEDS: NITROGLYCERIN SL 0.4 MG TABLET SUBLINGUAL (18:35)
--- NOTE | 2023-04-28 18:46 | PC.NURSE ---
This patient, Justin Beck, was admitted to IMU Room 202- From ED via stretcher at 1845. Patient/family oriented to hospital policies and general routines including ID bracelet, bed and alarms, visiting hours, pain management, procedures, bathroom and other care routines, personal items, smoking policy, room service/diet, and visiting hours. Information on how to activate the Rapid Response Team has been discussed. Patient/Family are encouraged to report perceived risks to care and to ask questions if they do not understand what they are told or what they should do.
--- NOTE | 2023-04-28 19:04 | PM.IMHP ---
H&P: HPI History of Present Illness Date/Time: 04/28/23 19:04 Chief Complaint: chest pain Narrative: This is a 57-year-old male patient who has had a history of coronary artery disease with 3 cardiac stents. The patient stated he had awaiting to go to an Thursday and he stopped taking his Plavix an aspirin and he did admit to drinking on Thursday. The patient stated on Thursday he did feel very well he felt very fatigued. Then he noticed that he had dark stools and some bleeding. Patient did not come the hospital at that time. The patient stated that he does have times where he has blood in his stool no lows all on its own. The patient was complaining of chest pain today that radiated down his left arm. The patient stated that he had his last stent 2 years ago and this feels similar to when he was having his cardiac event then. The patient is currently pain-free. Initial troponin was nonreactive. The 2nd troponin was 0.249. And the 3rd 1 is 9.0. Cardiology has been consulted. It was noted per ED note that the patient had EKG changes. His last EKG shows a STEMI with an occlusion in the RCA and he was stented at that time. His EKG was concern for acute abnormality. Cardiology was paged. Patient was Hemoccult positive. Initially ED activated the laborer vineyard and the patient was then evaluated by Cardiology and have GI consulted. It was noted that Cardiology recommended holding the Plavix but continue with aspirin. And GI has been consulted but no progress note from that group has been placed at this time. The patient is concerned about stain the hospital due to lack of insurance. The patient is self-pay. The patient is being admitted to inpatient status on the date of service of 04/28/2023. Review of Systems Review of Systems: All systems reviewed & are unremarkable except as noted in HPI and below Constitutional: Constitutional: Reports as per HPI and Reports no additional constitutional complaints Eyes: Eyes: Reports as per HPI and Reports no additional eye complaints ENT: Reports system reviewed and no additional complaints, except as documented and Reports Normal hearing present Cardiovascular: Cardiovascular: Reports no additional cardiovascular complaints Respiratory: Respiratory: Reports no additional respiratory complaints and Reports no additional respiratory complaints Gastrointestinal: Gastrointestinal: Reports as per HPI and Reports no additional gastrointestinal complaints Musculoskeletal: Musculoskeletal: Reports no additional musculoskeletal complaints Integumentary/Breasts: Skin/Breast: Reports system reviewed and no additional complaints, except as docu and Reports as per HPI Neurologic: Reports system reviewed and no additional complaints, except as documented, Reports as per HPI and Reports Normal hearing present Psychiatric: Psychiatric: Reports no additional psychiatric complaints and Reports as per HPI Endocrine: Endocrine: Reports no additional endocrine complaints Hematologic/Lymphatic: Hematologic/Lymphatic: Reports no additional hematologic/lymphatic complaints Allergic/Immunologic: Allergic/Immunologic: Reports no additional allergic/immunologic complaints [facility] Past Medical History Medical History (Updated 04/28/23 @ 23:11 by Lori Bear NP) History of ST elevation myocardial infarction (STEMI) Hyperlipidemia Hypertension Surgical History Surgical History (Updated 04/28/23 @ 23:13 by Lori Bear NP) H/O heart artery stent 3 drug-eluting stents RCA July 2021 Family History Family History Father Acute myocardial infarction 1st heart attack at age 68, had several stents, valve replacement of dementia Mother Murmur, cardiac Social History Social History (Updated 04/28/23 @ 23:14 by Lori Bear NP) Social History: The patient has 2 children use with his daughter. The patient has
[2023-04-28] MEDS: hydrALAZINE HCL 20 MG/ML VIAL 10 MG IV PUSH (19:27)
--- NOTE | 2023-04-28 22:18 | ECG_ITS ---
Measurements Intervals [place] Rate: 76 P: 19 NE: 152 QRS: -24 QRSD: 92 T: -2 QT: 356 QTc: 400 Interpretive Statements SINUS RHYTHM DELAYED PRECORDIAL R/S TRANSITION LEFT VENTRICULAR HYPERTROPHY CONSIDER INFERIOR INFARCT, AGE INDETERMINATE BASELINE ARTIFACT- I, III, AVR, AVL, AVF ABNORMAL ECG COMPARED TO ECG 04/28/2023 14:20:49 MYOCARDIAL INFARCT FINDING NOW PRESENT Electronically Signed On 04-29-2023 6:53:39 CDT by Eran Orellana D.O.
[2023-04-28 23:12] LABS: Hematocrit 40.5 % (42.0-52.0); Hemoglobin 13.7 g/dL (14.0-18.0)
[2023-04-29] VITALS (15 sets, daily range): BP systolic 124–165; BP diastolic 69–100; PULSE 63–89; RESP 16–20; TEMP 36.2–37.2; O2SAT 96–99
--- NOTE | 2023-04-29 | ECHO_ITS ---
Patient Info Name: Justin Beck Age: 57 years : 1965 Gender: Male Ht: 73 in Wt: 176 lbs BSA: 2.03 m2 HR: 165 bpm BP: 165 / 98 mmHg Heart Rhythm: Sinus Rhythm Technical Quality: Fair Exam Date: 04/29/2023 11:28 AM Exam Location: [facility] Pulmonary Exam Room: [facility] Patient Status: Inpatient Admit Date: 04/28/2023 Staff Ordering Physician: Yasmine Muniz MD (ekta/[email or web address]) Iron Pourer: Amy Velasco RCS Attending Provider: Buzz Dockery MD Referring Physician: Flavio PÉREZ; Exam Type: CA echo dop color flow w con Study Info Indications - CHEST PAIN NSTEMI Complete two-dimensional, color flow and Doppler transthoracic echocardiogram is performed with contrast to opacify the left ventricle and to improve the deliniation of the left ventricle endocardial borders. Contrast/Agitated Saline Contrast/Ag. Saline: Definity Amount: 2.00 ml Administered By: Amy Velasco Existing IV Access: Yes IV Access Condition: patent with no signs of infiltration Summary 1. Left ventricular chamber dimension is normal. 2. Left ventricular systolic function is normal, estimated at 60-65%. 3. There is mildly increased left ventricular wall thickness. 4. The left ventricular diastolic function is grade I diastolic dysfunction. 5. The basal inferior wall, basal inferolateral wall, and mid inferolateral wall are hypokinetic. 6. There is mild tricuspid valve regurgitation. Left Ventricle Left ventricular chamber dimension is normal. Left ventricular systolic function is normal, estimated at 60-65%. There is mildly increased left ventricular wall thickness. The left ventricular diastolic function is grade I diastolic dysfunction. The basal inferior wall, basal inferolateral wall, and mid inferolateral wall are hypokinetic. All other schafer appear normal. Right Ventricle Right ventricular chamber dimension is normal. Right ventricular systolic function is normal. Left Atria Left atrial chamber dimension is normal. Right Atria Right atrial chamber dimension is normal. Atrial Septum Intact interatrial septum visualized by color flow imaging. Aortic Valve The aortic valve is trileaflet. There is mild aortic valve sclerosis. There is no aortic valve stenosis. There is trace aortic valve regurgitation. Pulmonic Valve The pulmonic valve is normal. There is no pulmonic valve stenosis. There is trace pulmonic regurgitation. Mitral Valve The mitral valve has normal leaflets. There is no mitral valve stenosis. There is trace mitral valve regurgitation. Tricuspid Valve The tricuspid valve leaflets are normal. There is no significant tricuspid valve stenosis. There is mild tricuspid valve regurgitation. No pulmonary hypertension, estimated pulmonary arterial systolic pressure is 32 mmHg. Pericardium/Pleural The pericardium appears normal. There is no pericardial effusion. Inferior Vena Cava Normal inferior vena cava with >50% collapse upon inspiration consistent with normal right atrial pressure, 10 mmHg. Aorta The aortic root size at the sinus of Valsalva is normal. Left Ventricular Outflow Tract Name Value Normal LVOT 2D LVOT Diameter 2.07 cm LVOT Doppler
[2023-04-29 04:47] LABS: Basophils Percent Auto 0.3 % (0.2-1.2); Eosinophils Percent Auto 0.7 % (0-4.4); Hematocrit 42.6 % (42.0-52.0); Hemoglobin 14.2 g/dL (14.0-18.0); Immature Granulocyte Absolute 0.01 K/mm3 (0.00-0.031); Immature Granulocyte Percent A 0.2 % (0-0.5); Lymphocytes Absolute Auto 0.92 K/mm3 (0.9-3.2); Lymphocytes Percent Auto 15.9 % (18.3-44.2); Mean Corpuscular HGB Conc 33.3 g/dl (32-36); Mean Corpuscular Hemoglobin 31.7 pg (26-34); Mean Corpuscular Volume 95.1 fl (80-100); Mean Platelet Volume 10.1 fl (7.4-10.4); Monocytes Absolute Auto 0.6 K/mm3 (0.1-0.6); Monocytes Percent Auto 9.5 % (2.6-8.5); Neutrophils Absolute Auto 4.2 K/mm3 (1.3-6.7); Neutrophils Percent Auto 73.4 % (45.5-73.1); Platelet Count Result 196 k/mm3 (150-375); Red Blood Count 4.48 M/mm3 (4.6-6.20); Red Cell Distribution Width 12.8 % (11.5-14.5); White Blood Count 5.8 K/mm3 (4.5-10.0)
[2023-04-29 04:58] LABS: Anion Gap 8 mmol/L (8-16); Blood Urea Nitrogen 10 mg/dL (9-20); Calcium 9.2 mg/dL (8.4-10.2); Carbon Dioxide 31 mmol/L (22-30); Chloride 103 mmol/L (98-107); Estimated CRCL calculation 89 ml/min; Estimated Glomerular Filt Rate > 60; Glucose 108 mg/dL (65-110); Potassium 3.9 mmol/L (3.4-5.0); Sodium 142 mmol/L (137-145)
--- NOTE | 2023-04-29 07:00 | WPDGICN ---
Assessment and Plan Assessment and plan (1) Melena: Code(s): K92.1 - Melena Status: Acute Assessment and Plan: physician insure stable. He has seen no blood since admission. I was initially considering her scheduling him for EGD and colonoscopy but given the fact that his troponin was jumped up I think that is more port to investigate his cardiac status. I do not think that he is at significant risk of bleeding with anticoagulation as he has not had any significant drop in his hemoglobin. Unfortunately we do not know the source of the blood in his stool and this will need to be investigated. (2) Chest pain: Code(s): R07.9 - Chest pain, unspecified Status: Acute Assessment and Plan: His chest pain has resolved. He feels great this morning. (3) Elevated troponin: Code(s): R77.8 - Other specified abnormalities of plasma proteins Status: Acute Assessment and Plan: As noted, the troponin went from not reactive to 9.0 yesterday I discussed his case with Cardiology. Dr. Muniz would like to observe him overnight even though no intervention is needed at this moment, primarily to ensure that he does not have recurrence of pain. Therefore I will go ahead proceed with endoscopic examination. Ideally we would ascertain any source of bleeding and remedy he had before he requires anti coagulation pursuing to cardiac intervention. Plan I will defer to Cardiology. I think that we can often endoscopy for now. Certainly with there is some risk of bleeding with anticoagulation for heart catheterization. IF cardiac intervention is not anticipated for today then I will go ahead and prepare him for colonoscopy to be done tomorrow GI Consult Note Consult date/time: 04/29/23 07:00 HPI: Justin Beck is a 57 year old male Presented to the emergency room yesterday afternoon because of chest pain. He still has a long history of coronary artery disease and has had multiple stents placed. The last time he had STEMI seen on EKG he had stents placed. That was about 2 years ago. He remains on Plavix and aspirin. He did stop both of those however several days ago because he has seen some blood in his stools. He states that this happened once in the , seen blood in his stools at that time his physician told him is because he was drinking too much. It happened again in the . Now, on 3 separate occasions, the morning after having had alcohol at any event or Had been on a date with his girlfriend in drinking shots,he sees at his stools which are fairly normal in color would be seeping blood at the edges in the toilet bowl. he has never had a colonoscopy. He is not aware of ever having had an ulcer. He denies rectal pain. Denies any abdominal pain he is screened some weight recently. He attributes part of this the fact that he he eats what he can when he can. 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 Denies heartburn dysphagia. He has no history of liver disease or other gastrointestinal problems. He has taking omeprazole from time to time in the past when something like this has happened with blood in the stool. Because he complained of chest pain he was seen in the emergency room by Cardiology who felt that he did not have any acute changes on EKG. His initial troponin was negative and the 2nd was 0.2. His last troponin however is 9.0. I understand that Cardiology is considering cardiac catheterization. Patient tells me that he has seen no blood in his stools nor even has had a bowel movement since admission. Review of Systems Review of Systems: All systems reviewed & are unremarkable except as noted in HPI and below PMFSH Past Medical History Medical History History of ST elevation myocardial infarction (STEMI) Hyperlipidemia Hypertension Surgical History Surgical History (Reviewed 04/29/23 @ 07:06 by Emerson
[2023-04-29] MEDS: METOPROLOL TARTRATE 25 MG TABLET PO ×2 (08:35→20:32)
[2023-04-29] MEDS: ATORVASTATIN 40 MG TABLET 80 MG PO (08:35)
[2023-04-29] MEDS: PANTOPRAZOLE SODIUM IV 40 MG VIAL IV PUSH ×2 (08:35→20:31)
[2023-04-29] MEDS: ASPIRIN 325 MG ENTERIC TABLET PO (08:35)
--- NOTE | 2023-04-29 10:52 | PM.IMPN ---
Progress Note: A&P Assessment and Plan (1) Non-ST elevation [place] (NSTEMI): Code(s): I21.4 - Non-ST elevation (NSTEMI) myocardial infarction Status: Acute Assessment and Plan: Patient presents with chest pain. He had stopped aspirin and Plavix few days prior to admission. EKG reviewed showing NSR with subacute inferior ST elevation (reviewed by Cards and not felt to be acute). Troponin to 9. Cardiology was consulted. The patient has a history of STEMI requiring 3 LYNSEY to the RCA Jul 2021. Patient was given aspirin but not continue with the Plavix due to the concern for GI bleed. Appreciate cardiology input. Continue aspirin, metoprolol, Lipitor, and or, Cozaar and Ranexa. Plan for ischemic evaluation once cleared by GI. Echo ordered. Repeat Trop (2) Chest pain: Code(s): R07.9 - Chest pain, unspecified Status: Acute Assessment and Plan: As above. (3) Melena: Code(s): K92.1 - Melena Status: Acute Assessment and Plan: Patient has been having dark red blood per rectum. He was on NSAIDs as well as aspirin and Plavix prior to admission. He also has a history of rectal bleeding intermittently over the past few decades. ER physician note shows watery brown stool on exam that was Hemoccult positive. Hemoglobin has been stable in the 13-14 range. GI has been consulted. Continue pantoprazole. Plan for endoscopy in the morning. (4) Coronary artery disease: Code(s): I25.10 - Atherosclerotic heart disease of [place] coronary artery without angina pectoris Status: Acute Assessment and Plan: Patient has a history of STEMI requiring 3 drug-eluting stents placed in RCA in July 2021. Appreciate Cardiology input. His above. (5) Hypertension: Code(s): I10 - Essential (primary) hypertension Status: Acute Assessment and Plan: Patient's blood pressure was reviewed on 04/29 Blood pressure was poorly controlled on admission to 214/107. Related to noncomplinace? BP better overall but still not at goal. Will continue current medications. Add hydralazine. (6) Hyperlipidemia: Code(s): E78.5 - Hyperlipidemia, unspecified Status: Acute Assessment and Plan: LFTs normal. Continue with atorvastatin Subjective Date/time seen: 04/29/23 10:52 Interval history: 57yo male patient with CAD s/p 3 cardiac stents, HTN and HLD here for chest pain. He.? The patient noted dark stools and blood so he stopped taking his Plavix and aspirin. Assuming care. Chart reviewed. Patient feels well. No further chest pain. No abdominal pain. He has had normal appearing bowel movement since admission. He does admit to using NSAIDs in the form of ibuprofen a few tablets a day over the past week. He also mentions that he has had rectal bleeding off and on for decades usually associated with poor dietary choices and alcohol. Exam Narrative: AF 97.2 165/98 78 16 97% ra Gen - NARD Chest - CTA bilaterally, nml RR CV - RRR S1/S2. Tele showing one episode of 4 beat run of NSVT Abd - Soft, NT/ND, Positive BS Ext - No pedal edema Neuro - Alert and oriented. Nonfocal exam. Psych - Nml mood and affect Skin - Warm and dry Objective Data Vital Signs Vital Signs: Vital Signs - 24 hr 04/28/23 14:18 04/28/23 14:53 04/28/23 16:12 Temperature 98.5 F Pulse Rate 77 91 75 Respiratory Rate 16 18 Blood Pressure 205/103 H 187/122 H Pulse Oximetry 100 99 Oxygen Delivery Room Air 04/28/23 16:21 04/28/23 14:23 04/28/23 14:34 Temperature Pulse Rate 74 85 Respiratory Rate 14 17 Blood Pressure 191/109 H Pulse Oximetry 100 96 97 Oxygen Delivery 04/28/23 14:45 04/28/23 14:48 04/28/23 15:01 Temperature Pulse Rate 90 79 Respiratory Rate 17 12 Blood Pressure Pulse Oximetry 97 99 99 Oxygen Delivery 04/28/23 15:15 04/28/23 15:53 04/28/23 15:56 Temperature Pulse Rate 79 78 75 Respiratory Ra
[2023-04-29] MEDS: BISACODYL 5 MG TABLET EC 10 MG PO ×3 (11:09→20:32)
[2023-04-29] MEDS: ISOSORBIDE MONONITRATE 30 MG TAB.ER.24H PO (11:09)
[2023-04-29] MEDS: CLOPIDOGREL BISULFATE 300 MG TABLET 600 MG PO (11:09)
[2023-04-29] MEDS: LOSARTAN POTASSIUM 25 MG TABLET PO (11:09)
[2023-04-29] MEDS: PERFLUTREN LIPID MICROSPHERES 1.5 ML VIAL DILUTED TO 10 ML TOTAL VOLUME IV PUSH (11:20)
[2023-04-29] MEDS: hydrALAZINE 10 MG TABLET PO ×2 (13:14→17:14)
--- NOTE | 2023-04-29 13:44 | PM.PNCARD ---
Progress Note: A&P Assessment and Plan (1) Non-ST elevation [place] (NSTEMI): Code(s): I21.4 - Non-ST elevation (NSTEMI) myocardial infarction Status: Acute Assessment and Plan: Initial troponin negative, however, then troponin went up to 9. No further episodes of chest pain since yesterday morning, therefore, it is likely that patient has completed his infarction. Given the concern for GI bleed, discussed with the patient that we cannot do cardiac catheterization until we know the patient can tolerate uninterrupted DAPT and anticoagulation. Will resume his ASA, load with Plavix 600mg x 1 followed by 75mg QD and see how he tolerates DAPT from a bleeding standpoint. Patient states he would prefer medical therapy only at this time and would like to defer cardiac catheterization unless he gets recurrent chest pain. Will obtain transthoracic echocardiogram. (2) Coronary artery disease: Code(s): I25.10 - Atherosclerotic heart disease of [place] coronary artery without angina pectoris Status: Acute Assessment and Plan: As above, known coronary disease with history of stents to the RCA. Continue ASA, Plavix, statin. Will resume home antianginal therapy of Imdur, beta harriet, and Ranolazine. (3) Hyperlipidemia: Code(s): E78.5 - Hyperlipidemia, unspecified Status: Acute Assessment and Plan: Continue statin (4) Hypertension: Code(s): I10 - Essential (primary) hypertension Status: Acute Assessment and Plan: Blood pressure was uncontrolled on arrival with SBP as high as 214mmHg. Patient states he stopped taking all of his medications for a few days. Will resume home anti-hypertensives and adjust meds accordingly. (5) Melena: Code(s): K92.1 - Melena Status: Acute Assessment and Plan: GI consulted, planning for colonoscopy tomorrow morning as patient will remain in the hospital for rest of today. Subjective Date/time seen: 04/29/23 13:44 Interval history: Reason for visit: NSTEMI HPI: Justin Beck is a 57 year old male with coronary artery disease with a history of inferior ST-elevation [place] in July 2021 status post stenting of the distal, mid, and proximal RCA with placement of 3 drug-eluting stents.? ? Since his intervention, he has reported chest discomfort intermittently which prompted a nuclear stress test to be performed earlier this year which was negative for ischemia.? He presents to the emergency department today with a chief complaint of chest pain.? The patient states that he has had enter mid and chest pain for the past month.? Chest pain is not associated with exertion and seems to be somewhat random.? The chest pain was worse today which is what prompted him to present to the emergency department.? He also states that for the past week or so he has been passing blood in his stools.? Because of this, he decided to discontinue all of his medications including his aspirin and Brilinta this past Thursday.? He ss being kept on dual anti-platelet therapy for longer than the standard one year period because of his multivessel disease involving multiple coronary territories.? Prior to this, he does not report any missed doses of medication.? He denies any? palpitations, shortness of breath, syncope, presyncope.? At the time of my visit with him he is free from any chest pain and is resting comfortably on a stretcher in the emergency department. Date of service 04/29: Troponin went up to 9. Patient states he is feeling well this morning without any chest pain, shortness of breath or other anginal symptoms. Review of Systems Review of Systems: All systems reviewed & are unremarkable except as noted in HPI and below (HPI) Exam Const: General: comfortable and no acute distress HENMT: Mouth: Yes moist mucous membranes Eyes: General: appearance normal, both eyes and all related structures Sclera: sclerae normal Neck: Neck: supple Resp: Effort & Inspection
[2023-04-29] MEDS: polyethylene glycoL 3350 238 GM BOTTLE PO (14:53)
[2023-04-29 20:06] LABS: IFOB Positive Control Positive; Immunochemical Fecal Occult Bl Negative (N)
[2023-04-29] MEDS: RANOLAZINE 500 MG TAB.ER.12H PO (20:28)
[2023-04-30] VITALS (13 sets, daily range): BP systolic 93–143; BP diastolic 50–94; PULSE 59–75; RESP 13–18; TEMP 36–36.9; O2SAT 96–98
[2023-04-30] MEDS: MAGNESIUM CITRATE 300 ML BTL 180 ML PO (04:18)
[2023-04-30 04:41] LABS: Hematocrit 43.1 % (42.0-52.0); Hemoglobin 14.2 g/dL (14.0-18.0); Mean Corpuscular HGB Conc 32.9 g/dl (32-36); Mean Corpuscular Hemoglobin 31.3 pg (26-34); Mean Corpuscular Volume 95.1 fl (80-100); Mean Platelet Volume 10.3 fl (7.4-10.4); Platelet Count Result 206 k/mm3 (150-375); Red Blood Count 4.53 M/mm3 (4.6-6.20); Red Cell Distribution Width 13.1 % (11.5-14.5)
[2023-04-30 05:01] LABS: Anion Gap 6 mmol/L (8-16); Blood Urea Nitrogen 11 mg/dL (9-20); Calcium 9.1 mg/dL (8.4-10.2); Carbon Dioxide 30 mmol/L (22-30); Chloride 102 mmol/L (98-107); Estimated CRCL calculation 73 ml/min; Estimated Glomerular Filt Rate > 60; Glucose 111 mg/dL (65-110); Potassium 3.8 mmol/L (3.4-5.0); Sodium 138 mmol/L (137-145)
[2023-04-30] MEDS: METOPROLOL TARTRATE 25 MG TABLET PO (08:43)
[2023-04-30] MEDS: ASPIRIN 81 MG ENTERIC TABLET PO (08:43)
[2023-04-30] MEDS: LOSARTAN POTASSIUM 25 MG TABLET PO (08:43)
[2023-04-30] MEDS: ISOSORBIDE MONONITRATE 30 MG TAB.ER.24H PO (08:43)
[2023-04-30] MEDS: PANTOPRAZOLE SODIUM IV 40 MG VIAL IV PUSH (08:43)
[2023-04-30] MEDS: ATORVASTATIN 40 MG TABLET 80 MG PO (08:43)
[2023-04-30] MEDS: RANOLAZINE 500 MG TAB.ER.12H PO (08:43)
[2023-04-30] MEDS: hydrALAZINE 10 MG TABLET PO ×2 (08:49→12:55)
--- NOTE | 2023-04-30 09:17 | PC.NURSE ---
To GI Lab per [wheelchair. Report given to [ Adriana RN
[2023-04-30] MEDS: LACTATED RINGERS 1,000 ML 150 ML IV CONT (09:36)
--- NOTE | 2023-04-30 10:23 | WPDANESEPPF ---
Anes - Initial Pre Proc Eval Procedure: Operation Date: 04/28/23 15:00 Proposed Procedures p Left Heart Cath - Dony Perez MD Operation Date: 04/30/23 15:00 Proposed Procedures p Esophagogastroduodenoscopy & Colonoscopy - Emerson Moore MD Date/Time: 04/30/23 10:23 Surgeon: Buzz Dockery MD Pre Op Diagnosis: LGIB/Chest Pain Patient Data Age: 57 Gender: M Height: 1.85 m Weight: 79.7 kg Last Vital Signs Temp 97.8 F 04/30/23 09:33 Pulse 73 04/30/23 09:33 Resp 18 04/30/23 09:33 BP 125/79 04/30/23 09:33 Pulse Ox 98 04/30/23 09:33 O2 Del Method Room Air 04/30/23 09:33 Allergies Allergy/AdvReac Type Severity Reaction Status Date / Time Penicillins Allergy Unknown Unknown Verified 04/30/23 09:30 Home Medications Medication Instructions Recorded Confirmed Type aspirin 81 mg tablet,delayed 81 mg PO HS 04/29/23 04/29/23 History release atorvastatin 40 mg tablet 80 mg PO HS 04/29/23 04/29/23 History clopidogrel 75 mg tablet (Plavix) 75 mg PO HS 04/29/23 04/29/23 History isosorbide mononitrate 30 mg 30 mg PO HS 04/29/23 04/29/23 History tablet,extended release 24 hr losartan 25 mg tablet 25 mg PO HS 04/29/23 04/29/23 History metoprolol tartrate 25 mg tablet 25 mg PO HS 04/29/23 04/29/23 History ranolazine 500 mg tablet,extended 500 mg PO HS 04/29/23 04/29/23 History release,12 hr Laboratory Tests 04/29/23 04/29/23 04/30/23 11:31 15:00 03:40 WBC RBC Hgb Hct MCV MCH MCHC RDW Plt Count MPV Sodium Potassium Chloride Carbon Dioxide Anion Gap BUN Creatinine Estim Creat Clear Calc Estimated GFR Glucose Calcium Magnesium Troponin I 11.000 H* ng/mL 4.560 H* ng/mL (0.000-0.034) (0.000-0.034) Stl Occult Blood (IFOB) Negative (N) 04/30/23 03:43 WBC 6.0 K/mm3 (4.5-10.0) RBC 4.53 L M/mm3 (4.6-6.20) Hgb 14.2 g/dL (14.0-18.0) Hct 43.1 % (42.0-52.0) MCV 95.1 fl (80-100) MCH 31.3 pg (26-34) MCHC 32.9 g/dl (32-36) RDW 13.1 % (11.5-14.5) Plt Count 206 k/mm3 (150-375) MPV 10.3 fl (7.4-10.4) Sodium 138 mmol/L (137-145) Potassium 3.8 mmol/L (3.4-5.0) Chloride 102 mmol/L (98-107) Carbon Dioxide 30 mmol/L (22-30) Anion Gap 6 L mmol/L (8-16) BUN 11 mg/dL (9-20) Creatinine 1.10 mg/dL (0.7-1.3) Estim Creat Clear Calc 73 ml/min Estimated GFR > 60 (59 - ) Glucose 111 H mg/dL (65-110) Calcium 9.1 mg/dL (8.4-10.2) Magnesium 2.0 mg/dL (1.6-2.3) Troponin I Stl Occult Blood (IFOB) Patient hx anesthesia problems: none Family hx anesthesia problems: none Results Review: All pre-operative results and documents have been reviewed as part of the pre-operative evaluation. [facility] Past Medical History Medical History History of ST elevation myocardial infarction (STEMI) Hyperlipidemia Hypertension Surgical History Surgical History H/O heart artery stent 3 drug-eluting stents RCA July 2021 Family History Family History Father Acute myocardial infarction 1st heart attack at age 68, had several stents, valve replacement of dementia Mother Murmur, cardiac Social History Social History Social History: The patient has 2 children use with his daughter. The patient has been from his for 12 years. 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 Code status full code Smoking s
--- NOTE | 2023-04-30 10:49 | SUR.OPER ---
EGD COMPLETED AT 1055, COLONOSCOPY STARTED AT 1101.
--- NOTE | 2023-04-30 12:10 | PC.NURSE ---
Addendum entered by Luz Maria Jeronimo RN 04/30/23 12:11: Report received from MARIA A Han Original Note: Returned from GI Lab via stretcher. No issues noted
[2023-04-30] MEDS: CLOPIDOGREL BISULFATE 75 MG TABLET PO (12:55)
--- NOTE | 2023-04-30 13:16 | PM.PNCARD ---
Progress Note: A&P Assessment and Plan (1) Non-ST elevation [place] (NSTEMI): Code(s): I21.4 - Non-ST elevation (NSTEMI) myocardial infarction Status: Acute Assessment and Plan: Initial troponin negative, however, then troponin went up to 9 with peak of 11. No further episodes of chest pain since Thursday morning, therefore, it is likely that patient has completed his infarction. Given the concern for GI bleed, discussed with the patient that we cannot do cardiac catheterization until we know the patient can tolerate uninterrupted DAPT and anticoagulation. Will resume his ASA, load with Plavix 600mg x 1 followed by 75mg QD and see how he tolerates DAPT from a bleeding standpoint. Patient states he would prefer medical therapy only at this time and would like to defer cardiac catheterization unless he gets recurrent chest pain. TTE obtained 04/29 which shows preserved LVEF with inferior hypokinesis, which was noted on prior echo. Patient has not had any recurrence of chest pain. Continue DAPT, statin, antianginal therapy. Will have patient follow up with Dr. Haynes as an outpatient. (2) Coronary artery disease: Code(s): I25.10 - Atherosclerotic heart disease of [place] coronary artery without angina pectoris Status: Acute Assessment and Plan: As above, known coronary disease with history of stents to the RCA. Continue ASA, Plavix, statin. Will resume home antianginal therapy of Imdur, beta harriet, and Ranolazine. (3) Hyperlipidemia: Code(s): E78.5 - Hyperlipidemia, unspecified Status: Acute Assessment and Plan: Continue statin (4) Hypertension: Code(s): I10 - Essential (primary) hypertension Status: Acute Assessment and Plan: Blood pressure was uncontrolled on arrival with SBP as high as 214mmHg. Patient states he stopped taking all of his medications for a few days. Will resume home anti-hypertensives and adjust meds accordingly. (5) Melena: Code(s): K92.1 - Melena Status: Acute Assessment and Plan: GI consulted, EGD and colonoscopy done - results reviewed. EKG showed a severe Schatzki's ring at the GE junction. Multiple biopsies were taken. Balloon dilatation was performed. A medium hiatal hernia was found. A few large-size internal hemorrhoids were seen in the rectum. 6mm flat polyp in the descending colon, the polyp was completely excised. Per GI, can resume ASA starting tomorrow. Plan Okay for discharge from cardiology standpoint. Will arrange outpatient follow up with Dr. Haynes. Subjective Date/time seen: 04/30/23 13:16 Interval history: Reason for visit: NSTEMI HPI: Justin Beck is a 57 year old male with coronary artery disease with a history of inferior ST-elevation [place] in July 2021 status post stenting of the distal, mid, and proximal RCA with placement of 3 drug-eluting stents.? ? Since his intervention, he has reported chest discomfort intermittently which prompted a nuclear stress test to be performed earlier this year which was negative for ischemia.? He presents to the emergency department today with a chief complaint of chest pain.? The patient states that he has had enter mid and chest pain for the past month.? Chest pain is not associated with exertion and seems to be somewhat random.? The chest pain was worse today which is what prompted him to present to the emergency department.? He also states that for the past week or so he has been passing blood in his stools.? Because of this, he decided to discontinue all of his medications including his aspirin and Brilinta this past Thursday.? He ss being kept on dual anti-platelet therapy for longer than the standard one year period because of his multivessel disease involving multiple coronary territories.? Prior to this, he does not report any missed doses of medication.? He denies any? palpitations, shortness of breath, syncope, presyncope.? At the time of my visit with him he is free from any chest
--- NOTE | 2023-04-30 13:41 | PM.DS ---
DS: Admitting Diagnosis Discharge Date 04/30/23 Admitting Diagnosis Chest pain DS: Discharge Diagnosis Discharge Diagnosis (1) Non-ST elevation WI (NSTEMI): Code(s): I21.4 - Non-ST elevation (NSTEMI) myocardial infarction Status: Acute (2) Chest pain: Code(s): R07.9 - Chest pain, unspecified Status: Acute (3) Melena: Code(s): K92.1 - Melena Status: Acute (4) Coronary artery disease: Code(s): I25.10 - Atherosclerotic heart disease of sioux coronary artery without angina pectoris Status: Acute (5) Hypertension: Code(s): I10 - Essential (primary) hypertension Status: Acute (6) Hyperlipidemia: Code(s): E78.5 - Hyperlipidemia, unspecified Status: Acute DS: Summary Hospital Course Reason for hospitalization: 57yo male patient with CAD s/p 3 cardiac stents, HTN and HLD here for chest pain. He.? The patient noted dark stools and blood so he stopped taking his Plavix and aspirin. Please see H&P for details. Hospital Course: Patient presented with chest pain.? He had stopped aspirin and Plavix a few days prior to admission. EKG reviewed showing NSR with subacute inferior ST elevation (reviewed by Cards and not felt to be acute). Troponin to 11. Cardiology was consulted.? The patient has a history of STEMI requiring 3 LYNSEY to the RCA Jul 2021.?Echo here showing EF 60-65% with Grade I diastolic dysfunction and HK basal inferior, basal inferolateral and mid inferolateral schafer. (Jul 2021 Echo showed HK to the basal inferior wall and basal inferoseptal schafer.) Patient has been having dark red blood per rectum.? He was on NSAIDs as well as aspirin and Plavix prior to admission.? He also has a history of rectal bleeding intermittently over the past few decades.? ER physician note shows watery brown stool on exam that was Hemoccult positive.? Hemoglobin was stable in the 13-14 range.? GI was consulted and ptient underwent endoscopy. EGD showing severe Schatzki's ring at the GE junction with balloon dilation. Biopsies were taken. Medium sized hiatal hernia noted as well. Colonoscopy showing a few large-sized internal hemorrhoids and descending colon polyp that was excised. He was treated with Pantoprazole. Blood pressure was poorly controlled on admission to 214/107 felt related to noncompliance with his anti-HTN medications. It was felt the patient completed his WI. He was loaded with Plavix 600mg and resumed on DAPT. The patient would prefer to proceed with medical therapy only at this time. Medication compliance was stressed. Patient overall did well and was able to be discharged home on 04/30/23. Status at Discharge Cognitive/behavioral status at discharge: Stable Time Spent with Patient Time attestation: Total time spent providing and/or coordinating discharge services: 35 minutes Time spent: Greater than 30 minutes Exam Narrative: AF 96.8 115/68 66 16 97% ra Gen - NARD Chest - CTA bilaterally, nml RR CV - RRR S1/S2. Tele showing occasional PVCs Abd - Soft, NT/ND, Positive BS Ext - No pedal edema Psych - Nml mood and affect Skin - Warm and dry DS: Data Data Completed and Pending Pending studies at discharge: Pending at discharge 04/30/23 11:02 Surgical [PTH] Routine Surgical [PTH] Routine Labs on day of discharge: Labs from last 24 hours 04/30/23 04/30/23 04/29/23 03:43 03:40 15:00 WBC 6.0 RBC 4.53 L Hgb 14.2 Hct 43.1 MCV 95.1 MCH 31.3 MCHC 32.9 RDW 13.1 Plt Count 206 MPV 10.3 Sodium 138 Potassium 3.8 Chloride 102 Carbon Dioxide 30 Anion Gap 6 L BUN 11 Creatinine 1.10 Estim Creat Clear Calc 73 Estimated GFR > 60 Glucose 111 H Calcium 9.1 Magnesium 2.0 Troponin I 4.560 H* Stl Occult Blood (IFOB) Negative Discharge Plan Discharge Attending physician on discharge: Luis Alfredo Wilson Consulting providers: Edison Perez
== END 2023-04-30 14:50 | disposition home or self-care (01) | DRG 243 ==
LOC: ANHED 16:38 → ANHIMU 17:19
PROVIDERS: Emergency Medicine; Internal Medicine Gastroenterology; Nurse Practitioner; Admitting Provider Internal Medicine; Emergency Provider Emergency Medicine; PCP Emergency Medicine; Visit Provider Internal Medicine
PROC: 0DJ08ZZ Inspection of Upper Intestinal Tract, Via Natural or Artificial Opening Endoscopic (ICD-10-PCS; CPT 43235; principal; 2023-04-30 15:00)
DX: K22.2 Esophageal obstruction (principal); I21.4 Non-ST elevation (NSTEMI) myocardial infarction; K92.1 Melena; D12.4 Benign neoplasm of descending colon; E78.5 Hyperlipidemia, unspecified; I25.119 Atherosclerotic heart disease of native coronary artery with unspecified angina pectoris; I10 Essential (primary) hypertension; K44.9 Diaphragmatic hernia without obstruction or gangrene; K64.8 Other hemorrhoids; I25.2 Old myocardial infarction; Z79.1 Long term (current) use of non-steroidal anti-inflammatories (NSAID); Z95.5 Presence of coronary angioplasty implant and graft; Z79.02 Long term (current) use of antithrombotics/antiplatelets; Z79.82 Long term (current) use of aspirin; Z88.0 Allergy status to penicillin
CPT/HCPCS: 36415; 71046; 74177; 80048; 80053; 82274; 83605; 83690; 83735; 84443; 84484; 85014; 85018; 85025; 85027; 85610; 85730; 86850; 86900; 86901; 88305; 93005; 99285; A9270; C1726; C8929; C9113; J0360; J2704; J7120; Q9957; Q9967

== ENCOUNTER 2024-02-29 21:26 | Emergency (ER) | payer SELFPAY ==
[2024-02-29] VITALS (19 sets, daily range): BP systolic 139–189; BP diastolic 88–105; PULSE 74–92; RESP 13–21; TEMP 37.1; O2SAT 95–99
--- NOTE | ~2024-02-29 | XR_ITS ---
EXAMINATION: XR chest 2V DATE: 02/29/2024 21:48 INDICATION: Worsening chest pain TECHNIQUE: PA and lateral views of the chest were obtained. COMPARISON: Chest radiograph dated 04/28/2023 FINDINGS: The lungs remain clear with no focal airspace opacities, pulmonary edema, pleural effusion or pneumot horax. Heart size is normal. Again seen is an air-fluid level within a moderate-sized hiatal hernia. IMPRESSION: 1. Moderate-sized hiatal hernia. No acute cardiopulmonary disease. Reviewed, dictated and finalized at location A.
--- NOTE | 2024-02-29 21:30 | ECG_ITS ---
SEE SCANNED COPY FOR CONFIRMED REPORT MTDD
--- NOTE | 2024-02-29 21:44 | PC.NURSE ---
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
[2024-02-29 21:49] LABS: Basophils Percent Auto 0.4 % (0.2-1.2); Eosinophils Absolute Auto 0.1 K/mm3 (0-0.3); Eosinophils Percent Auto 0.8 % (0-4.4); Hematocrit 42.9 % (42.0-52.0); Hemoglobin 14.1 g/dL (14.0-18.0); Immature Granulocyte Absolute 0.02 K/mm3 (0.00-0.031); Immature Granulocyte Percent A 0.3 % (0-0.5); Lymphocytes Absolute Auto 1.35 K/mm3 (0.9-3.2); Mean Corpuscular HGB Conc 32.9 g/dl (32-36); Mean Corpuscular Hemoglobin 31.4 pg (26-34); Mean Corpuscular Volume 95.5 fl (80-100); Monocytes Absolute Auto 0.7 K/mm3 (0.1-0.6); Monocytes Percent Auto 9.1 % (2.6-8.5); Neutrophils Percent Auto 70.4 % (45.5-73.1); Platelet Count Result 213 k/mm3 (150-375); Red Blood Count 4.49 M/mm3 (4.6-6.20); Red Cell Distribution Width 12.6 % (11.5-14.5); White Blood Count 7.1 K/mm3 (4.5-10.0)
--- NOTE | 2024-02-29 21:50 | ED.CHESTPAIN ---
HPI - Chest Pain General Chief Complaint: Chest Pain Stated Complaint: cp, sob Time Seen by Provider: 02/29/24 21:46 History of Present Illness HPI narrative: Patient is a 58-year-old male who presents emergency department this evening complaining of chest pain. Patient states that she has been started at 9:00 a.m. this morning and has been coming and going on and off for the past 12. Patient took full dose oral chewable aspirin and 3 sublingual nitroglycerins and states that he does not think they touched his pain. Patient states that chest pain is a mild pressure, denies any sharp stabbing chest pain and does not appear to be in any distress. He denies any additional symptoms including nausea or vomiting, any abdominal pain, dysuria or hematuria, fevers or chills. There are no additional modifying, alleviating, or precipitating factors at this time. Related Data Home Medications Medication Instructions Recorded Confirmed aspirin 81 mg tablet,delayed 81 mg PO HS 04/29/23 02/29/24 release atorvastatin 40 mg tablet 80 mg PO HS 04/29/23 02/29/24 clopidogrel 75 mg tablet (Plavix) 75 mg PO HS 04/29/23 02/29/24 isosorbide mononitrate 30 mg 30 mg PO HS 04/29/23 02/29/24 tablet,extended release 24 hr losartan 25 mg tablet 25 mg PO HS 04/29/23 02/29/24 ranolazine 500 mg tablet,extended 500 mg PO HS 04/29/23 02/29/24 release,12 hr Allergies Allergy/AdvReac Type Severity Reaction Status Date / Time Penicillins Allergy Unknown Unknown Verified 02/29/24 21:35 Review of Systems Review of Systems: All systems are reviewed and are negative unless stated otherwise in the HPI. [facility] Past Medical History Medical History History of ST elevation myocardial infarction (STEMI) Hyperlipidemia Hypertension Surgical History Surgical History H/O heart artery stent 3 drug-eluting stents RCA July 2021 Family History Family History Father Acute myocardial infarction 1st heart attack at age 68, had several stents, valve replacement of dementia Mother Murmur, cardiac Social History Social History Social History: The patient has 2 children use with his daughter. The patient has been from his for 12 years. 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 Code status full code Smoking status: Never smoker Second hand tobacco smoke exposure: Yes Alcohol intake: current Drinks per week: 4 Substance use: never Substance use type: does not use Lack of Transportation: No Lack of Food: Never True Current Housing: I Have Housing Concerned About Future Housing: No Difficulty Paying Gas/Electric Bills: No Difficulty Paying for Meds: No Currently Unemployed: No Education: Bachelor's Degree Difficulty w/ Childcare or Family Care: No Spiritual care concerns: No Exam Narrative: General: Alert, awake, afebrile, in no acute distress. HEENT: PERRL, no rhinorrhea, no post nasal drip, oropharynx clear. Neck: Trachea midline, no JVD, no lymphadenopathy. Cardiovascular: Regular rate and rhythm, no murmurs, rubs or gallops, no peripheral edema. Respiratory: Clear to auscultation bilaterally, no tachypnea, no wheezing, no rhonchi, no rubs, no respiratory distress. Abdomen: Soft, nontender, nondistended, no rebound, no guarding, no peritoneal signs. Musculoskeletal: No joint swelling or deformity, normal muscle tone. Skin: No rashes or petechia, no signs of infection. Psychiatric: Alert and oriented, normal behavior and judgment for situation. Neurological: Alert and oriented to person, place, and time. Follows all commands. No focal deficits, speech is clear and fluent. Course Vital Signs Vital signs: Vital Signs Temperature 98.8 F
[2024-02-29 22:00] LABS: INR 0.9; Partial Thromboplastin Time 28.9 Seconds (22.3-36.8); Prothrombin Time 12.9 Seconds (11.1-14.7)
[2024-02-29 22:01] LABS: Alanine Aminotransferase 30 U/L (6-50); Albumin Level 4.9 g/dL (3.5-5.1); Alkaline Phosphatase 80 U/L (38-126); Anion Gap 8 mmol/L (4-12); Aspartate Amino Transferase 25 U/L (17-59); Bilirubin,Total 0.9 mg/dL (0.2-1.3); Blood Urea Nitrogen 14 mg/dL (9-20); Carbon Dioxide 29 mmol/L (22-30); Chloride 103 mmol/L (98-107); Estimated CRCL calculation 72 ml/min; Estimated Glomerular Filt Rate > 60; Glucose 186 mg/dL (65-110); Lipase 146 U/L (23-300); Potassium 3.3 mmol/L (3.4-5.0); Sodium 140 mmol/L (137-145)
[2024-02-29 22:12] LABS: Troponin I < 0.012 ng/mL (0.000-0.034)
[2024-03-01] VITALS (12 sets, daily range): BP systolic 154–182; BP diastolic 86–121; PULSE 76–85; RESP 15–24; O2SAT 93–100
[2024-03-01 00:57] LABS: Troponin I < 0.012 ng/mL (0.000-0.034)
== END 2024-03-01 01:29 | disposition home or self-care (01) ==
PROVIDERS: Physician Assistant; Emergency Provider Emergency Medicine; PCP Emergency Medicine
DX: R07.9 Chest pain, unspecified (principal); I10 Essential (primary) hypertension; E78.5 Hyperlipidemia, unspecified; Z95.5 Presence of coronary angioplasty implant and graft; Z77.22 Contact with and (suspected) exposure to environmental tobacco smoke (acute) (chronic); Z79.82 Long term (current) use of aspirin; R94.31 Abnormal electrocardiogram [ECG] [EKG]
CPT/HCPCS: 36415; 71046; 80053; 83690; 84484; 85025; 85610; 85730; 93005; 99284

== ENCOUNTER 2024-12-04 11:35 | Inpatient (IN) | payer SELFPAY ==
[2024-12-04] VITALS (23 sets, daily range): BP systolic 125–187; BP diastolic 68–112; PULSE 56–103; RESP 12–24; TEMP 36.6–37.2; O2SAT 93–100
--- NOTE | ~2024-12-04 | XR_ITS ---
Exam: Abdomen 1V HISTORY: NG tube placement COMPARISON: 02/29/2024 TECHNIQUE: Supine images of the lower chest and upper abdomen FINDINGS: Nasogastric tube extends into the left upper quadrant, presumably within the stomach. Increased prominence of the hiatal hernia. IMPRESSION: Nasogastric tube in good position and ready for immediate use. Reviewed, dictated and finalized at location A. NESS INFORMATION MANAGER
--- NOTE | ~2024-12-04 | CT_ITS ---
CLINICAL INDICATION: Abdominal pain COMPARISON: 04/28/2023. TECHNIQUE: Multiple contiguous axial images of the abdomen and pelvis were performed following the ad ministration of with 100 mL Omnipaque-350 intravenous contrast The dose-length product (DLP) was 307.98 mGy-cm. Automated exposure control and iterative reconstruction technique were employed. FINDINGS/OBSERVATIONS: Visualized lower thorax: The bilateral lung bases are clear. The heart is of normal size, without pericardial effusion. Large hiatal hernia is redemonstrated Liver: The liver enhances homogeneously and is not enlarged. Gallbladder and biliary system: The gallbladder is only minimally distended, and otherwise unremarkable. Pancreas: The pancreas enhances homogeneously without ductal dilatation. Spleen: Punctate calcifications identified within the splenic parenchyma, suggesting prior granulomat ous disease. The remainder of the spleen otherwise enhances homogeneously and is not enlarged measuring 6 cm in lo ngitudinal dimension. Kidneys: The bilateral kidneys enhance symmetrically without hydronephrosis or renal calculi. Adrenal glands: Unremarkable. Gastrointestinal tract: Multiple loops of dilated small bowel are identified, to the left of midline with surrounding free fl uid and distal decompression, findings suggesting a high-grade small bowel obstruction. Hazy opacific ation of the surrounding mesentery suggests bowel ischemia. Mural thickening and edema is identified within the distal small bowel which is decompressed. Vasculature: Densely calcified atherosclerotic disease. The inferior vena cava is slit like, suggesting hypovolemi a. Lymph nodes: No pathologically enlarged or morphologically suspicious lymph nodes within the retroperitoneum or at the root of the mesentery. Pelvic structures: The bladder is minimally distended, and otherwise unremarkable. The prostate gland is not enlarged. Body wall and musculoskeletal: No significant degenerative disease within the lower thoracic or lumbosacral spine. IMPRESSION: Findings consistent with high-grade small bowel obstruction with hazy opacification of the surroundin g mesentery suggesting bowel ischemia, as detailed above. Urgent surgical consultation is recommended. Reviewed, dictated and finalized at location A. [place] SERGE[facility] IMPRESSION: Findings consistent with high-grade small bowel obstruction with hazy opacifica tion of the surrounding mesentery suggesting bowel ischemia, as detailed above. Urgent surgical consultation is recommended.
--- OUTSIDE RECORDS SUMMARY | 2024-12-04 11:43 | XMS_ITS | CONTINUITY OF CARE DOCUMENT ---
Author Name gretchen godinez Address Unknown Organization [facility] Address [address] [place] [address] [address] [place] [address] Phone [phone] Care Team Providers Care Janitorial Manager Name Role Phone Bull Mitchell MD Unavailable JASON BUI MD Unavailable [phone] JASON BUI MD Unavailable [phone] PROBLEMS Condition Status Date Provider Notes HTN essential active Bull Mitchell MD SLEEP APNEA; active Bull Mitchell MD Hypercholesterolemia active Bull Puckett FAMILY HISTORY OF HEART DISEASE active Beatriz Mitchell MD GERD active Bull Mitchell MD ENCOUNTERS Date Type Provider Location Encounter Diag nosis - In-person encounter Office Visit Bull Mitchell MD [place] [facility] HTN essentialSLEEP APNEA;Hypercholesterol emiaFAMILY HISTORY OF HEART DISEASEGERD VITAL SIGNS Date Observation Value Provider oxygen saturation, oximetry 98 % Sade Butler blood pressure, diastolic 120 mm[Hg] Me leon Butler blood pressure, systolic 169 mm[Hg] Yeni Butler pulse rate 80 /min Sade Butler respiratory rate E&M 16 /min Sade Butler Body Mass Index (Ratio) 22.98 kg/m2 Quyen Butler weight E&M 179 [lb_av] Sade Butler height E&M 74 [in_i] Sade Butler ALLERGIES Allergy Name Onset Date Reaction Criticality Status PCN High Criticality active HISTORY OF MEDICATION USE Medication Status Instructions Dates Provider Indications Com ments BYSTOLIC 10 MG ORAL TABLET active ONE TAB. DAILY Bull Mitchell MD EDARBYCLOR 40-25 MG ORAL TABLET active one a day Bull Mitchell MD SOCIAL HISTORY Date Observation Value Provider smoking status Never smoker Bull Mitchell MD social history E&M S moking History: P jay has never smoked. Bull Mitchell MD social history reviewed E&M revi ewed - no changes required Bull Mitchell MD FAMILY HISTORY Family Member Condition Father Family History of Co ronary Artery Disease: Father Family History Coron micaela Heart Disease female < 65: INSURANCE PROVIDERS Payer name Policy type / Coverage type [employer] red republican ID SELF PAY TREATMENT PLAN Date Name Performer Cardiology Bull Mitchell MD Cardiology:posivtive per pt Beatriz Mitchell MD Cardiology Bull Mitchell MD Cardiology:will rx H is updated medication list for this problem includes: Bystolic 10 Mg Tabs (Nebivolol hcl) ..... One tab. daily Edarbyclor 40-25 Mg Oral Tabs (Azilsartan-chlorthalidone) ..... One a day BP today: 169/120 Bull Mitchell MD Date Name Sleep Study - split night STR - Routine VITAMIN D, 25-HYDROX Y, LC/MS/MS HEMOGLOBIN A1c VITAMIN B12 CBC (INCLUDES DIFF/P LT) THYROID PANEL WITH T SH, 3RD GENERATION PROBNP, N TERMINAL LIPID PANEL COMPREHENSIVE METABO LIC PANEL W/EGFR Complete Echo HISTORY OF PROCEDURES Procedure Date Procedure Name Provider Procedure Notes S tatus EKG Bull Mitchell MD complete d SNOMED-CT: [id number] Current Medications Documented Bull Mitchell MD completed
--- OUTSIDE RECORDS SUMMARY | 2024-12-04 11:43 | XMS_ITS | Continuity of Care Document ---
Author Organization [facility] Address [address] [facility] [place] [address] Phone Care Team Providers Care Asbestos Worker Helper Name Role Phone Bhavin Trevizo MD Unavailable Unavailable Allergies, Adverse Reactions, Alerts Substance Reaction Status Criticality Penicillins Active No Information Medications Medication Instructions Dosage Effective Dates (start - stop) Status Comments levofloxacin 750 mg tablet take 1 tablet by oral route every day 750 MG - Active losartan 25 mg tablet take 1 tablet by o ral route every day 25 MG - Active Lipitor 80 mg tablet take 1 tablet by or al route every day 80 MG - Active Plavix 75 mg tablet take 1 tablet by ora l route every day 75 MG - Active aspirin 81 mg tablet,delayed release take 1 tablet by oral route every day 81 MG - Active metoprolol tartrate 25 mg tablet take 1 tablet by oral route 2 times every day 25 MG - Active Procedures Procedure Date OFFICE/OUTPATIENT VISIT, EST OFFICE/OUTPATIENT VISIT, EST OFFICE/OUTPATIENT VISIT, EST OFFICE/OUTPATIENT VISIT, EST OFFICE/OUTPATIENT VISIT, EST OFFICE/OUTPATIENT VISIT, NEW Advance Directives Directive Yes / No Effective Date File Name No Information Encounters Encounter Description Practice Location Reason(s) For Visit Diagnoses Date Provider Providers Copied on Encounter OFFICE/OUTPA TIENT VISIT, EST [facility], [address] [facility] [place], [id number], [place] tel:[phone] [facility] cough1 (chief complaint) Pneumonia 5 Santhosh Delcid. [address], [place], [place], [address] , [place]. tel:[phone] Referring Provider: Elsa Sethi [address], [place], [place], [id number]. tel:[phone] OFFICE/OUTPA TIENT VISIT, [facility], [address], [place], [place], [address], [place] tel:[phone] [facility] STEMI (chief complaint) anemia1 (chief complaint) GERD1 (chief complaint) AnemiaEssential (primary) hypertensionCoronar y artery disease of CABG without angina pectorisGERD w/o esophagitis 1 Santhosh Delcid. [address], [address], [place], [place], [address] , [place]. tel:[phone] Referring Provider: Elsa Sethi [address], [place], [place], [address]. tel:[phone] OFFICE/OUTPA TIENT VISIT, [facility], [address] [place], [place], [address], [place] tel:[phone] [facility] HTN (chief complaint) Essential (primary) hypertension Jan-0 0 Santhosh Delcid. [address], [place], [place], [address] , [place]. tel:[phone] Referring Provider: Elsa Sethi [address], [place], [place], [address]. tel:[phone] OFFICE/OUTPA TIENT VISIT, [facility], [address] [place], [id number], [place] tel:[phone] [facility] HTN (chief complaint) chest pain1 (chief complaint) Essential (primary) hypertensionChest pain Jan- 9 Santhosh Delcid. [address], [place], [place], [address] , [place]. tel:[phone] Referring Provider: Elsa Sethi [address], [place], [place], [address]. tel:[phone] OFFICE/OUTPA TIENT VISIT, [facility], [address] [place], [id number], tel:[phone] [facility] HTN (chief complaint) chest pain1 (chief complaint) fatigue1 (chief complaint) GERD1 (chief complaint) GERD w/o esophagitisEssentia l (primary) hypertensionChest painFatigue 6 Santhosh Del[address]. [address] [place], [address] , [place]. tel:[phone] Referring Provider: Bhavin Trevizo, [address] [place] [address] A, [place], [place], [address]. tel:[phone] OFFICE/OUTPA TIENT VISIT, [facility], [address] [place], [id number], tel:[phone] [facility] rash (chief complaint) HTN (chief complaint) ScabiesHypertension , Unspecified 5 Santhosh Delcid. [address] [facility] [address], [place], [place], [address] , [place]. tel:[phone] Family History Family Member Type Diagnosis Age At Onset Father Problem (finding) Coronary artery disease 39 Brother Problem (finding) Alive and well Mother Problem (finding) Coronary artery disease Payers Payer name Insurance type Covered alliance party ID Authoriza tion(s) No Information Social History Type Description Quantity Date Captured Comments Alcohol Use Details No Caffeine Use Details Unknown Tobacco Use Status Never smoked tobacco 2024 Smoking Status Never smoker Sex Male Vital Signs Date / Time: Height Weight BMI Pulse Rate Blood Pressure Temperature Respiratory Rate Body Surface Area Head Circumference BMI percentile Pulse Ox Inhaled Ox 12:52 PM 74.00 in 166.40 lbs 21.3 6 kg/m eter (2) 89 /min 140/80 mm[Hg] 98.5 F 16 /min Chief Complaint And Reason For Visit From encounter dated '11/09/2024 12:52'. cough1 (chief complaint). Description: Pt has some headache, myalgia, dry cough with some occasional clear phlegm, postnasal drip for 3-4 weeks Pt denies any sore throat or ear pain. Pt also started to have non bloody diarrhea since two days ago but the diarrhea resolved .pt denies any nausea but he did vomited x one time only two days ago .Pt also started to have fever as high as 102 since 3 days ago Plan Of Treatment Date Type Action Status Referral Ordered: Eran Orellana -[facility] : Internal Medicine : Cardiovascular Disease (related to Chest pain) ordered Referral Referred To: Eran Orellana [address] [place], [place] [id number] Ordered: Referrals: [facility]opathic Physicians : Internal Medicine : Cardiovascular Disease. Eran Orellana. Evaluate and treat ordered Referral Ordered: Cardiology (related to Chest pain) ordered Referral Ordered: Referrals: Cardiology. Evaluate and treat ordered History Of Present Illness Encounter Date Complaint History Of Prese nt Illness cough1 Pt has some head ache, myalgia, dry cough with some occasional clear phlegm, postnasal drip for 3-4 weeks Pt denies any sore throat or ear pain. Pt also started to have non bloody diarrhea since two days ago but the diarrhea resolved .pt denies any nausea but he did vomited x one time only two days ago .Pt also started to have fever as high as 102 since 3 days ago STEMI Pt recently suff ered Acute STEMI around 4 weeks ago Pt had emergency cardiac cath with stent placement Pt is seeing cardiology. Pt denies any chest pain or sob .pt denies any calf pain Pt is on metoprolol, asa, plavix, lipitor and also losartan now. Pt has HLP Pt is on lipitor now. His lipid improved gradually since starting lipitor. Pt denies any myalgia anemia1 Pt has mild anem ia on recent lab Pt does feel fatigue and also mild dizziness sometimes. Pt denies any blood loss. Pt denies any GI issue. GERD1 Pt co chronic GE RD with intermittent midepigastric pain with occasional radiation to his back Pt denies any dark color stool or any GI bleeding. Pt notices occasional pain at night HTN Pt has HTN Pt jackson s not been taking any BP medication Pt states that he has been diet and exercising and his BP is around 130/70 at home. Pt has been drinking a lot of water . Pt states that he stopped all alcohol. Pt states that several night ago his Bp was 179/125. Pt did feel slightly fatigue. Pt did have some headache while his BP was high but resolved now Pt states that his BP is 120/85 today Pt denies any vision change, Pt states that when he was taking BP meds norvasc and HCTZ and he feels slightly dizzy. Pt denies any chest pain Pt never did the lab work or followed up with the houseman. Pt states that he wants to have some BP meds handy in case his bp is high again. chest pain1 Pt has chronic l eft side chest pain for the past 5 years Pt denies any exertional chest pain Pt denies any acute chest pain Pt did not see cardiology last time HTN Pt has chronic H TN pt is very noncompliant with bp med in the past . Pt denies any headache Pt does not have insurance so he has not done any lab or see cardiology yet. Pt denies any chest pain. Pt denies any headache. Pt denies any vision change. His g/f recently checked his BP which was 185/122. Pt was told by g/f to see me mariam. GERD1 Pt has chronic G ERD. Pt takes prilosec daily. Pt still has breakthrough symptoms. Pt denies any abd apin fatigue1 Pt has been feel ing very fatigue recently. Pt feels sleepy all the time. Pt has sleep apnea but he does not use any CPAP. Pt just does not want to use the CPAP. chest pain1 Pt c/o intermitt ent chest pain and chest tightness for 6 months. Pt denies any exertional chest pain. Pt feels SOB all the time. Pt denies any diaphoresis. Pt denies any radiation to neck or arm. Pt denies any acute chset pain. Pt has chest pain about once per day, No trigger factor HTN Pt has history o f HTN. Pt has not been taking norvasc for long time. His BP is acutally ok recenlty. His bP at home is around 140 per patient. Pt has been under a lot of stress. Instructions Date Instruction Additional Infor gladys Follow a low sodium diet. Relate d to Essential (primary) hypertension Increase activity. Related to Es sential (primary) hypertension Assessments Type Assessment Date assessment Pneumonia Mental Status Date Cognitive Assessment Orientation - [place] ed to time, place, person, situation.
--- NOTE | 2024-12-04 11:45 | ECG_ITS ---
Test Date: 2024-12-04 11:48:10 Measurements Intervals [place] Rate: 59 P: 32 MO: 174 QRS: -7 QRSD: 90 T: 32 QT: 402 QTc: 400 Interpretive Statements SINUS BRADYCARDIA CONSIDER INFERIOR INFARCT, AGE INDETERMINATE BORDERLINE T WAVE ABNORMALITY- LATERAL LEADS BASELINE ARTIFACT- I, II, III, AVR, AVL, AVF ABNORMAL ECG No previous ECG available for comparison Electronically Signed On 12-04-2024 16:30:34 HAMMER SETTER by Eran Orellana D.O.
--- NOTE | 2024-12-04 12:00 | ED_ITS ---
HPI - General Adult General Chief complaint: Abdominal Pain Stated complaint: abd pain Time Seen by Provider: 12/04/24 11:37 History of Present Illness HPI narrative: Patient is a 59-year-old gentleman presents emergency department with chief complaint of abdominal pain. The patient reports he has been having pain since about 5:00 a.m. reports no prior history of surgery on the abdomen. The patient states that he has prior history of NE and does have stents. The patient states the pain is diffuse and reports that he is unable to get the pain to resolve. The patient reports tried to have a bowel movement had a small bowel movement but no relief the patient states that he feels as though his abdomen is aching. Related Data Home Medications ?Medication ?Instructions ?Recorded ?Confirmed ?Last Taken ?Type aspirin 81 mg tablet,delayed 81 mg PO HS 04/29/23 02/29/24 04/28/23 History release atorvastatin 40 mg tablet 80 mg PO HS 04/29/23 02/29/24 04/28/23 History clopidogrel 75 mg tablet (Plavix) 75 mg PO HS 04/29/23 02/29/24 Unknown History isosorbide mononitrate 30 mg 30 mg PO HS 04/29/23 02/29/24 1 Day Ago History tablet,extended release 24 hr ~04/28/23 losartan 25 mg tablet 25 mg PO HS 04/29/23 02/29/24 1 Day Ago History ~04/28/23 ranolazine 500 mg tablet,extended 500 mg PO HS 04/29/23 02/29/24 04/28/23 History release,12 hr Allergies Allergy/AdvReac Type Severity Reaction Status Date / Time Penicillins Allergy Unknown Unknown Verified 12/04/24 11:44 Review of Systems 2 Review of Systems: A 10 system review of systems was completed on the patient and is negative except for what is stated in the HPI. Nursing and ancillary documentation was reviewed. [facility] Past Medical History Medical History History of ST elevation myocardial infarction (STEMI) Hyperlipidemia Hypertension Surgical History Surgical History H/O heart artery stent 3 drug-eluting stents RCA July 2021 Family History Family History Father Acute myocardial infarction 1st heart attack at age 68, had several stents, valve replacement of dementia Mother Murmur, cardiac Social History Social History Social History: Surrogate medical decision maker: Leti Beck, daughter ([phone]). Code status: Full code. 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 HEAD: Normocephalic, atraumatic. EYES: PERRLA and EOMI. ENT: Nares clear, no rhinorrhea or epistaxis. Mucous membranes moist. NECK: Supple. CHEST: Clear to auscultation. No respiratory distress. HEART: Regular rate and rhythm. No murmur heard. Normal peripheral pulses. ABDOMEN: Diffusely tender to palpation, nondistended, normal active bowel sounds. EXTREMITIES: Normal range of motion. No edema. SKIN: Warm, dry, no rash. NEURO: No focal deficits. Alert and oriented x3. PSYCH: Normal mood and affect. Course Vital Signs Vital signs: Vital Signs Temperature 36.6 C 12/04/24 11:39 Pulse Rate 56 L 12/04/24 11:39 Respiratory Rate 16 12/04/24 11:39 Blood Pressure 148/87 H 12/04/24 11:39 Pulse Oximetry 100 12/04/24 11:39 Oxygen Delivery Room Air 12/04/24 11:39 Temperature 37.0 C 12/04/24 17:50 Pulse Rate 98 12/04/24 18:35 Respiratory Rate 18 12/04/24 18:35 Blood Pressure 152/92 H 12/04/24 18:35 Pulse Oximetry 100 12/04/24 18:35 Oxygen Delivery Room Air 12/04/24 18:35 Oxygen Flow Rate 6 12/04/24 18:20 Medical Decision Making MDM Narrative Medical decision making narrative: Differential diagnosis includes bowel obstruction, intra-abdominal infection, CT scan of the abdomen pelvis showed possible high-grade bowel obstruction with possible mesenteric ischemia the patient does have a elevated lactic acid 3.8 Patient received IV fluids patient is penicillin allergic receive cefepime and Flagyl The case was discussed with Dr. Villeda of the surgical service who will evaluate the patient. Vital Signs Vital Signs: Vital Signs Temperature 36.6 C 12/04/24 11:39 Pulse Rate 56 L 12/04/24 11:39 Respiratory Rate 16 12/04/24 11:39 Blood Pressure 148/87 H 12/04/24 11:39 Pulse Oximetry 100 12/04/24 11:39 Oxygen Delivery Room Air 12/04/24 11:39 Temperature 37.0 C 12/04/24 17:50 Pulse Rate 98 12/04/24 18:35 Respiratory Rate 18 12/04/24 18:35 Blood Pressure 152/92 H 12/04/24 18:35 Pulse Oximetry 100 12/04/24 18:35 Oxygen Delivery Room Air 12/04/24 18:35 Oxygen Flow Rate 6 12/04/24 18:20 Lab Data 12/04/24 13:19 12/04/24 13:19 Labs: Lab Results 12/04/24 12/04/24 12/04/24 Range/Units 13:19 14:25 14:38 WBC 11.2 H (4.5-10.0) K/mm3 RBC 4.43 L (4.6-6.20) M/mm3 Hgb 14.1 (14.0-18.0) g/dL Hct 42.1 (42.0-52.0) % MCV 95.0 (80-100) fl MCH 31.8 (26-34) pg MCHC 33.5 (32-36) g/dl RDW 12.2 (11.5-14.5) % Plt Count 195 (150-375) k/mm3 MPV 10.6 H (7.4-10.4) fl Immature Gran % (Auto) 0.4 (0-0.5) % Neut % (Auto) 90.8 H (45.5-73.1) % Lymph % (Auto) 4.9 L (18.3-44.2) % [place] % (Auto) 3.8 (2.6-8.5) % Eos % (Auto) 0.0 (0-4.4) % Baso % (Auto) 0.1 L (0.2-1.2) % Lymph # (Auto) 0.55 L (0.9-3.2) K/mm3 [place] # (Auto) 0.4 (0.1-0.6) K/mm3 Eos # (Auto) 0.0 (0-0.3) K/mm3 Baso # (Auto) 0.0 (0.0-0.1) K/mm3 Abs Immat Gran (auto) 0.04 H (0.00-0.031) K/mm3 Absolute Neuts (auto) 10.1 H (1.3-6.7) K/mm3 Absolute Nucleated RBC 0.000 (0.0-0.012) K/mm3 Nucleated RBC % 0.0 (0.0-0.2) % PT 13.3 (11.1-14.7) Seconds INR 1.0 APTT 26.6 (22.3-36.8) Seconds Sodium 143 (137-145) mmol/L Potassium 4.0 (3.4-5.0) mmol/L Chloride 105 (98-107) mmol/L Carbon Dioxide 26 (22-30) mmol/L Anion Gap 12 (4-12) mmol/L BUN 14 (9-20) mg/dL Creatinine 0.83 (0.7-1.3) mg/dL Estim Creat Clear Calc 89 ml/min Estimated GFR > 60 (59 - ) Glucose 143 H (65-110) mg/dL Lactic Acid 3.8 H (0.7-2.0) mmol/L Calcium 9.5 (8.4-10.2) mg/dL Magnesium 1.6 (1.6-2.3) mg/dL Total Bilirubin 0.8 (0.2-1.3) mg/dL AST 25 (17-59) U/L ALT 32 (6-50) U/L Alkaline Phosphatase 89 (38-126) U/L Troponin I < 0.012 (0.000-0.034) ng/mL Total Protein 7.0 (6.3-8.2) g/dL Albumin 4.5 (3.5-5.1) g/dL Lipase 100 (23-300) U/L Urine Color Yellow (Yellow) Urine Appearance Clear (Clear) Urine pH 6.0 (5.0-9.0) Ur Specific [place] > 1.045 H (1.001-1.035) Urine Protein Trace (Negative) mg/dL Urine Glucose (UA) 1+ H (Negative) mg/dL Urine Ketones 1+ H (Negative) mg/dL Ur Blood (Man) Negative (Negative) Urine Nitrate Negative (Negative) Urine Bilirubin Negative (Negative) Urine Urobilinogen 0.2 (<2.0) mg/dL Add Ur Microanalysis Reviewed Leukocyte Esterase Rfl Negative (Negative) ISABEL/UL Urine RBC 0-2 (0-2) /hpf Urine WBC 0-5 (0-3) /hpf Ur Squamous Epith Cells None seen (Few) /hpf Urine Bacteria None seen /hpf Urine Casts 3-5 Urine Mucus Present /lpf Influenza A (RT-PCR) Negative (Negative) Influenza B (RT-PCR) Negative (Negative) RSV (RT-PCR) Negative (Negative) SARS-CoV-2 RNA (RT-PCR) Negative (Negative) Critical Care Time Critical Care Time Critical Care Time: Yes Total Critical Care Time: 75 Discharge Plan Discharge Clinical Impression: Small bowel obstruction, Abdominal pain Patient Disposition: Still a Patient Condition: Stable
[2024-12-04 13:29] LABS: Basophils Percent Auto 0.1 % (0.2-1.2); Hematocrit 42.1 % (42.0-52.0); Hemoglobin 14.1 g/dL (14.0-18.0); Immature Granulocyte Absolute 0.04 K/mm3 (0.00-0.031); Immature Granulocyte Percent A 0.4 % (0-0.5); Lymphocytes Absolute Auto 0.55 K/mm3 (0.9-3.2); Lymphocytes Percent Auto 4.9 % (18.3-44.2); Mean Corpuscular HGB Conc 33.5 g/dl (32-36); Mean Corpuscular Hemoglobin 31.8 pg (26-34); Mean Platelet Volume 10.6 fl (7.4-10.4); Monocytes Absolute Auto 0.4 K/mm3 (0.1-0.6); Monocytes Percent Auto 3.8 % (2.6-8.5); Neutrophils Absolute Auto 10.1 K/mm3 (1.3-6.7); Neutrophils Percent Auto 90.8 % (45.5-73.1); Platelet Count Result 195 k/mm3 (150-375); Red Blood Count 4.43 M/mm3 (4.6-6.20); Red Cell Distribution Width 12.2 % (11.5-14.5); White Blood Count 11.2 K/mm3 (4.5-10.0)
[2024-12-04 13:37] LABS: Alanine Aminotransferase 32 U/L (6-50); Albumin Level 4.5 g/dL (3.5-5.1); Alkaline Phosphatase 89 U/L (38-126); Anion Gap 12 mmol/L (4-12); Aspartate Amino Transferase 25 U/L (17-59); Bilirubin,Total 0.8 mg/dL (0.2-1.3); Blood Urea Nitrogen 14 mg/dL (9-20); Calcium 9.5 mg/dL (8.4-10.2); Carbon Dioxide 26 mmol/L (22-30); Chloride 105 mmol/L (98-107); Estimated CRCL calculation 89 ml/min; Estimated Glomerular Filt Rate > 60; Glucose 143 mg/dL (65-110); Lactic Acid Reflex 3.8 mmol/L (0.7-2.0); Lipase 100 U/L (23-300); Magnesium 1.6 mg/dL (1.6-2.3); Sodium 143 mmol/L (137-145)
[2024-12-04 13:48] LABS: Troponin I < 0.012 ng/mL (0.000-0.034)
[2024-12-04] MEDS: SODIUM CHLORIDE 0.9% IV 1,000 ML 999 ML IV CONT ×2 (13:52→14:26)
[2024-12-04] MEDS: HYDROmorphone HCL INJ (*CRX) 1 MG/ML SYR IV PUSH ×2 (13:52→20:18)
[2024-12-04 14:04] LABS: Influenza A QL RT-PCR Negative (Negative); Influenza B QL RT-PCR Negative (Negative); RSV RNA, RT-PCR Negative (Negative); SARS-CoV-2 RNA PCR Negative (Negative)
[2024-12-04 14:42] LABS: Prothrombin Time 13.3 Seconds (11.1-14.7)
[2024-12-04 14:43] LABS: Partial Thromboplastin Time 26.6 Seconds (22.3-36.8)
--- NOTE | 2024-12-04 15:21 | P.PNAN_ITS ---
Anes - Eval Pre Procedure Procedure: Exploratory Laparotomy, poss bowel resection Date/Time: 12/04/24 15:21 Surgeon: Cory Preop Diagnosis: bowel obstruction Pre Op Diagnosis: abd pain Patient Data Age: 59 Gender: M Height: 1.85 m Weight: 76 kg Last Vital Signs Temp 97.9 F 12/04/24 11:39 Pulse 82 12/04/24 15:11 Resp 20 12/04/24 15:11 BP 155/76 H 12/04/24 15:11 Pulse Ox 98 12/04/24 15:11 O2 Del Method Room Air 12/04/24 11:39 Allergies Allergy/AdvReac Type Severity Reaction Status Date / Time Penicillins Allergy Unknown Unknown Verified 12/04/24 11:44 Home Medications ?Medication ?Instructions ?Recorded ?Confirmed ?Type aspirin 81 mg tablet,delayed 81 mg PO HS 04/29/23 02/29/24 History release atorvastatin 40 mg tablet 80 mg PO HS 04/29/23 02/29/24 History clopidogrel 75 mg tablet (Plavix) 75 mg PO HS 04/29/23 02/29/24 History isosorbide mononitrate 30 mg 30 mg PO HS 04/29/23 02/29/24 History tablet,extended release 24 hr losartan 25 mg tablet 25 mg PO HS 04/29/23 02/29/24 History ranolazine 500 mg tablet,extended 500 mg PO HS 04/29/23 02/29/24 History release,12 hr metoprolol tartrate 25 mg tablet 25 mg PO Q12H #60 tabs 04/30/23 02/29/24 Rx nitroglycerin 0.4 mg sublingual 0.4 mg sublingual Q5MIN PRN Chest 04/30/23 02/29/24 Rx tablet (Nitrostat) Pain #30 tabs Laboratory Tests 12/04/24 12/04/24 12/04/24 13:19 14:25 14:38 WBC 11.2 H K/mm3 (4.5-10.0) RBC 4.43 L M/mm3 (4.6-6.20) Hgb 14.1 g/dL (14.0-18.0) Hct 42.1 % (42.0-52.0) MCV 95.0 fl (80-100) MCH 31.8 pg (26-34) MCHC 33.5 g/dl (32-36) RDW 12.2 % (11.5-14.5) Plt Count 195 k/mm3 (150-375) MPV 10.6 H fl (7.4-10.4) Immature Gran % (Auto) 0.4 % (0-0.5) Neut % (Auto) 90.8 H % (45.5-73.1) Lymph % (Auto) 4.9 L % (18.3-44.2) [place] % (Auto) 3.8 % (2.6-8.5) Eos % (Auto) 0.0 % (0-4.4) Baso % (Auto) 0.1 L % (0.2-1.2) Lymph # (Auto) 0.55 L K/mm3 (0.9-3.2) [place] # (Auto) 0.4 K/mm3 (0.1-0.6) Eos # (Auto) 0.0 K/mm3 (0-0.3) Baso # (Auto) 0.0 K/mm3 (0.0-0.1) Abs Immat Gran (auto) 0.04 H K/mm3 (0.00-0.031) Absolute Neuts (auto) 10.1 H K/mm3 (1.3-6.7) Absolute Nucleated RBC 0.000 K/mm3 (0.0-0.012) Nucleated RBC % 0.0 % (0.0-0.2) PT 13.3 Seconds (11.1-14.7) INR 1.0 APTT 26.6 Seconds (22.3-36.8) Sodium 143 mmol/L (137-145) Potassium 4.0 mmol/L (3.4-5.0) Chloride 105 mmol/L (98-107) Carbon Dioxide 26 mmol/L (22-30) Anion Gap 12 mmol/L (4-12) BUN 14 mg/dL (9-20) Creatinine 0.83 mg/dL (0.7-1.3) Estim Creat Clear Calc 89 ml/min Estimated GFR > 60 (59 - ) Glucose 143 H mg/dL (65-110) Lactic Acid 3.8 H mmol/L (0.7-2.0) Calcium 9.5 mg/dL (8.4-10.2) Magnesium 1.6 mg/dL (1.6-2.3) Total Bilirubin 0.8 mg/dL (0.2-1.3) AST 25 U/L (17-59) ALT 32 U/L (6-50) Alkaline Phosphatase 89 U/L (38-126) Troponin I < 0.012 ng/mL (0.000-0.034) Total Protein 7.0 g/dL (6.3-8.2) Albumin 4.5 g/dL (3.5-5.1) Lipase 100 U/L (23-300) Urine Color Pending Urine Appearance Pending Urine pH Pending Ur Specific [place] Pending Urine Protein Pending Urine Glucose (UA) Pending Urine Ketones Pending Ur Blood (Man) Pending Urine Nitrate Pending Urine Bilirubin Pending Urine Urobilinogen Pending Leukocyte Esterase Rfl Pending Influenza A (RT-PCR) Negative (Negative) Influenza B (RT-PCR) Negative (Negative) RSV (RT-PCR) Negative (Negative) SARS-CoV-2 RNA (RT-PCR) Negative (Negative) ECG: ECG SB 59 Other studies: 04/29/23 Echo EF 60-65%, unremarkable stress test 2022 EF 67% Patient hx anesthesia problems: none Family hx anesthesia problems: none Results Review: All pre-operative results and documents have been reviewed as part of the pre- operative evaluation. [facility] Past Medical History Medical History History of ST elevation myocardial infarction (STEMI) Hyperlipidemia Hypertension Surgical History Surgical History H/O heart artery stent 3 drug-eluting stents RCA July 2021 Family History Family History Father Acute myocardial infarction 1st heart attack at age 68, had several stents, valve replacement of dementia Mother Murmur, cardiac Social History Social History Social History: The patient has 2 children use with his daughter. The patient has been from his for 12 years. 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 Code status full code Smoking status: Never smoker Second hand tobacco smoke exposure: Yes Alcohol intake: current Drinks per week: 4 Substance use: never Substance use type: does not use Lack of Transportation: No Lack of Food: Never True Current Housing: I Have Housing Concerned About Future Housing: No Difficulty Paying Gas/Electric Bills: No Difficulty Paying for Meds: No Currently Unemployed: No Education: Bachelor's Degree Difficulty w/ Childcare or Family Care: No Spiritual care concerns: No Exam Day of Procedure 12/04/24 15:21
[2024-12-04 15:22] LABS: Add Urine Microscopic? YES; Appearance Urine Clear (Clear); Bacteria Urine None Seen /hpf; Bilirubin Urine Negative (Negative); Blood Urine Negative (Negative); Color Urine Yellow (Yellow); Glucose Urine UA 1+ mg/dL (Negative); Ketones Urine 1+ mg/dL (Negative); Leukocyte Esterase Ur Negative LEU/UL (Negative); Mucus Urine Present /lpf; Need Manual Microscopic Reviewed; Nitrate Urine Negative (Negative); Protein Urine Trace mg/dL (Negative); RBC Urine 0-2 /hpf (0-2); Specific Grav Ur > 1.045 (1.001-1.035); Squamous Epithelial Cell Urine None Seen /hpf (Few); Urobilinogen Urine 0.2 mg/dL (<2.0); WBC Urine 0-5 /hpf (0-3)
--- OUTSIDE RECORDS SUMMARY | 2024-12-04 16:02 | XMS_ITS | Continuity of Care Document ---
Author Organization [facility] Address [address] [facility] [address] Phone Care Team Providers Care Terrazzo Helper Name Role Phone Bhavin Trevizo MD Unavailable Unavailable Allergies, Adverse Reactions, Alerts Substance Reaction Status Criticality Penicillins Active No Information Medications Medication Instructions Dosage Effective Dates (start - stop) Status Comments levofloxacin 750 mg tablet take 1 tablet by oral route every day 750 MG - Active metoprolol tartrate 25 mg tablet take 1 tablet by oral route 2 times every day 25 MG - Active aspirin 81 mg tablet,delayed release take 1 tablet by oral route every day 81 MG - Active Plavix 75 mg tablet take 1 tablet by ora l route every day 75 MG - Active Lipitor 80 mg tablet take 1 tablet by or al route every day 80 MG - Active losartan 25 mg tablet take 1 tablet by o ral route every day 25 MG - Active Procedures Procedure Date OFFICE/OUTPATIENT VISIT, EST OFFICE/OUTPATIENT VISIT, EST OFFICE/OUTPATIENT VISIT, EST OFFICE/OUTPATIENT VISIT, EST OFFICE/OUTPATIENT VISIT, EST OFFICE/OUTPATIENT VISIT, NEW Advance Directives Directive Yes / No Effective Date File Name No Information Encounters Encounter Description Practice Location Reason(s) For Visit Diagnoses Date Provider Providers Copied on Encounter OFFICE/OUTPA TIENT VISIT, EST [facility], [address] [place], [id number], [place] tel:[phone] [facility] cough1 (chief complaint) Pneumonia 5 Santhosh Delcid. [address], [place], [place], [address] , [place]. tel:[phone] Referring Provider: Elsa Sethi [address], [place], [place], [id number]. tel:[phone] OFFICE/OUTPA TIENT VISIT, [facility], [address], [place], [place], [address], [place] tel:[phone] [facility] STEMI (chief complaint) anemia1 (chief complaint) GERD1 (chief complaint) AnemiaEssential (primary) hypertensionCoronar y artery disease of CABG without angina pectorisGERD w/o esophagitis 1 Santhosh Delcid. [address], [place], [place], [address] , [place]. tel:[phone] Referring Provider: Elsa Sethi [address], [place], [place], [id number]. tel:[phone] OFFICE/OUTPA TIENT VISIT, [facility], [address], [place], [place], [address], [place] tel:[phone] [facility] HTN (chief complaint) Essential (primary) hypertension Jan-0 0 Santhosh Delcid. [address], [place], [place], [address] , [place]. tel:[phone] Referring Provider: Elsa Sethi [address], [place], [place], [address]. tel:[phone] OFFICE/OUTPA TIENT VISIT, [facility], [address], [place], [place], [address], [place] tel:[phone] [facility] HTN (chief complaint) chest pain1 (chief complaint) Essential (primary) hypertensionChest pain Jan- 9 Santhosh Delcid. [address], [place], [place], [address] , [place]. tel:[phone] Referring Provider: Elsa Sethi [address], [place], [place], [address]. tel:[phone] OFFICE/OUTPA TIENT VISIT, [facility], [address] [place], [id number], tel:[phone] [facility] HTN (chief complaint) chest pain1 (chief complaint) fatigue1 (chief complaint) GERD1 (chief complaint) GERD w/o esophagitisEssentia l (primary) hypertensionChest painFatigue 6 Santhosh Del[address]id. [address], [address] , [place]. tel:[phone] Referring Provider: Bhavin Trevizo, [address] [place] [address] A, [place], [place], [id number]. tel:[phone] OFFICE/OUTPA TIENT VISIT, [facility], [address] [place], [address], tel:[phone] [facility] rash (chief complaint) HTN (chief complaint) ScabiesHypertension , Unspecified 5 Santhosh Delcid. [address], [facility] [address], [place], [place], [address] , [place]. tel:[phone] Family History Family Member Type Diagnosis Age At Onset Father Problem (finding) Coronary artery disease 39 Brother Problem (finding) Alive and well Mother Problem (finding) Coronary artery disease Payers Payer name Insurance type Covered constitution party ID Authoriza tion(s) No Information Social [...] [address] [place], [place] [id number] Ordered: Referrals: Allopathic & Osteopathic Physicians : [...] high as 102 since 3 days ago GERD1 Pt co chronic GE RD with intermittent midepigastric pain with occasional radiation to his back Pt denies any dark color stool or any GI bleeding. Pt notices occasional pain at night anemia1 Pt has mild anem ia on recent lab Pt does feel fatigue and also mild dizziness sometimes. Pt denies any blood loss. Pt denies any GI issue. STEMI Pt recently suff ered Acute STEMI [...] since starting lipitor. Pt denies any myalgia HTN Pt has HTN Pt jackson s [...] lab work or followed up with the applications manager. Pt states that he wants to have some BP meds handy in case his bp is high again. HTN Pt has chronic H TN pt [...] told by g/f to see me mariam. chest pain1 Pt has chronic l eft side chest pain for the past 5 years Pt denies any exertional chest pain Pt denies any acute chest pain Pt did not see cardiology last time HTN Pt has history o f HTN. Pt has not been taking norvasc for long time. His BP is acutally ok recenlty. His bP at home is around 140 per patient. Pt has been under a lot of stress. chest pain1 Pt c/o intermitt ent chest pain and chest tightness for 6 months. Pt denies any exertional chest pain. Pt feels SOB all the time. Pt denies any diaphoresis. Pt denies any radiation to neck or arm. Pt denies any acute chset pain. Pt has chest pain about once per day, No trigger factor fatigue1 Pt has been feel ing very fatigue recently. Pt feels sleepy all the time. Pt has sleep apnea but he does not use any CPAP. Pt just does not want to use the CPAP. GERD1 Pt has chronic G ERD. Pt takes prilosec daily. Pt still has breakthrough symptoms. Pt denies any abd apin Instructions Date Instruction Additional Infor gladys Increase activity. Related to Es sential (primary) hypertension Follow a low sodium diet. Relate d to Essential (primary) hypertension Assessments Type Assessment Date assessment Pneumonia Mental Status Date Cognitive Assessment Orientation - [facility] ed to time, place, person, situation.
--- OUTSIDE RECORDS SUMMARY | 2024-12-04 16:02 | XMS_ITS | CONTINUITY OF CARE DOCUMENT ---
Author Name gretchen godinez Address Unknown Organization [facility] Address [address] [place] [address] [address] [place] [address] Phone [phone] Care Team Providers Care Principal Automation Engineer Name Role Phone Bull Mitchell MD Unavailable [phone] JASON BUI MD Unavailable [phone] JASON BUI MD Unavailable [phone] PROBLEMS Condition Status Date Provider Notes HTN essential active Bull Mitchell MD SLEEP APNEA; active Bull Mitchell MD Hypercholesterolemia active Bull Puckett FAMILY HISTORY OF HEART DISEASE active Beatriz Mitchell MD GERD active Bull Mitchell MD ENCOUNTERS Date Type Provider Location Encounter Diag nosis - In-person encounter Office Visit Bull Mitchell MD [place] [facility] HTN essentialSLEEP APNEA;Hypercholesterol emiaFAMILY HISTORY OF HEART DISEASEGERD VITAL SIGNS Date Observation Value Provider oxygen saturation, oximetry 98 % Sade Butler blood pressure, diastolic 120 mm[Hg] Me elon Butler blood pressure, systolic 169 mm[Hg] Yeni [...] Payer name Policy type / Coverage type Dolliver red libertarian ID SELF PAY TREATMENT PLAN Date Name [...] EKG Bull Mitchell MD complete d SNOMED-CT: [id number] Current Medications Documented Bull Mitchell MD completed
--- NOTE | 2024-12-04 16:10 | P.HP_ITS ---
H&P: HPI History of Present Illness Date/Time: 12/04/24 16:10 Chief Complaint: Abdominal pain Narrative: The patient is a 59-year-old male with an extensive cardiac history including MD x2, presenting to the emergency department complaining of severe, diffuse abdominal pain. The patient reports that he felt completely normal yesterday without any abdominal issues. He reports that he woke up this morning around 5:00 a.m. with severe, unrelenting abdominal pain. The patient reports the pain is crampy and associated with nausea, anorexia. The patient has also had some emesis. The patient reports he had a small bowel movement today. The patient denies any previous similar episodes. Workup in the emergency department, including imaging, is significant for high-grade small-bowel obstruction with ischemia. Review of Systems Review of Systems: All systems reviewed & are unremarkable except as noted in HPI and below PMFSH Past Medical History Medical History History of ST elevation myocardial infarction (STEMI) Hyperlipidemia Hypertension Surgical History Surgical History H/O heart artery stent 3 drug-eluting stents RCA July 2021 Family History Family History Father Acute myocardial infarction 1st heart attack at age 68, had several stents, valve replacement of dementia Mother Murmur, cardiac Social History Social History Social History: The patient has 2 children use with his daughter. The patient has been from his for 12 years. 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 Code status full code Smoking status: Never smoker Second hand tobacco smoke exposure: Yes Alcohol intake: current Drinks per week: 4 Substance use: never Substance use type: does not use Lack of Transportation: No Lack of Food: Never True Current Housing: I Have Housing Concerned About Future Housing: No Difficulty Paying Gas/Electric Bills: No Difficulty Paying for Meds: No Currently Unemployed: No Education: Bachelor's Degree Difficulty w/ Childcare or Family Care: No Spiritual care concerns: No Meds Home Medications and Allergies Home Medications ?Medication ?Instructions ?Recorded ?Confirmed ?Type aspirin 81 mg tablet,delayed 81 mg PO HS 04/29/23 02/29/24 History release atorvastatin 40 mg tablet 80 mg PO HS 04/29/23 02/29/24 History clopidogrel 75 mg tablet (Plavix) 75 mg PO HS 04/29/23 02/29/24 History isosorbide mononitrate 30 mg 30 mg PO HS 04/29/23 02/29/24 History tablet,extended release 24 hr losartan 25 mg tablet 25 mg PO HS 04/29/23 02/29/24 History ranolazine 500 mg tablet,extended 500 mg PO HS 04/29/23 02/29/24 History release,12 hr metoprolol tartrate 25 mg tablet 25 mg PO Q12H #60 tabs 04/30/23 02/29/24 Rx nitroglycerin 0.4 mg sublingual 0.4 mg sublingual Q5MIN PRN Chest 04/30/23 02/29/24 Rx tablet (Nitrostat) Pain #30 tabs Allergies Allergy/AdvReac Type Severity Reaction Status Date / Time Penicillins Allergy Unknown Unknown Verified 12/04/24 11:44 Vital Signs Vital Signs - 24 hr 12/04/24 11:39 12/04/24 12:35 12/04/24 12:45 Temperature 36.6 C Pulse Rate 56 L 58 L 69 Respiratory Rate 16 19 20 Blood Pressure 148/87 H Pulse Oximetry 100 99 99 Oxygen Delivery Room Air 12/04/24 14:49 12/04/24 15:00 12/04/24 15:11 Temperature Pulse Rate 66 82 Respiratory Rate 16 20 Blood Pressure 155/76 H Pulse Oximetry 96 93 98 Oxygen Delivery Exam Const: General: cooperative, acute distress mild and uncomfortable HENMT: Head: normal to inspection, normocephalic and atraumatic Eyes: General: appearance normal, both eyes and all related structures Neck: Neck: normal visual inspection, full ROM and no lymphadenopathy Resp: Auscultation: clear to auscultation bilaterally Cardio: Rate: regular rate Rhythm: regular rhythm GI: Inspection: normal to inspection and distended GI Palp: Yes abdominal tenderness, Yes Firmness to palpation present (GI), Yes Tenderness to palpation present (GI), Yes Guarding due to palpation present (GI) and No Rigid due to palpation Skin: General skin exam: normal color and no rashes or lesions noted Neuro: General: patient oriented x3 and CN's II-XI intact bilaterally Extrem: General: normal to inspection and full ROM H&P: Results Labs Labs: Short CBC 12/04/24 Range/Units 13:19 WBC 11.2 H (4.5-10.0) K/mm3 Hgb 14.1 (14.0-18.0) g/dL Hct 42.1 (42.0-52.0) % Plt Count 195 (150-375) k/mm3 BMP 12/04/24 13:19 Sodium 143 Potassium 4.0 Chloride 105 Carbon Dioxide 26 BUN 14 Creatinine 0.83 Glucose 143 H Calcium 9.5 Cardiac Enzymes 12/04/24 Range/Units 13:19 Troponin I < 0.012 (0.000-0.034) ng/mL Liver Function 12/04/24 Range/Units 13:19 Total Bilirubin 0.8 (0.2-1.3) mg/dL AST 25 (17-59) U/L ALT 32 (6-50) U/L Alkaline Phosphatase 89 (38-126) U/L Albumin 4.5 (3.5-5.1) g/dL Urine 12/04/24 Range/Units 14:38 Urine Color Yellow (Yellow) Urine Appearance Clear (Clear) Urine pH 6.0 (5.0-9.0) Ur Specific [place] > 1.045 H (1.001-1.035) Urine Protein Trace (Negative) mg/dL Urine Glucose (UA) 1+ H (Negative) mg/dL Imaging CT scan - abdomen: My impression: High-grade small-bowel obstruction with signs of ischemia Assessment and Plan Assessment and plan (1) Small bowel obstruction: Code(s): K56.609 - Unspecified intestinal obstruction, unspecified as to partial versus complete obstruction Status: Acute Assessment and Plan: Signs of ischemia noted on CT, exam and laboratory consistent with peritonitis and lactic acidosis, OR for emergent exploration (2) Coronary artery disease: Code(s): I25.10 - Atherosclerotic heart disease of [place] coronary artery without angina pectoris Status: Acute Assessment and Plan: Will have medical consultation postop, hold anticoagulation for now
--- NOTE | 2024-12-04 16:15 | WPDHPUPDATE1 ---
History and Physical Update Update Date/Time: 12/04/24 16:15 History and Physical has been reviewed, including an updated exam of the patient. There are NO changes in the patient's condition. Risks, benefits, and alternatives have been discussed and questions answered. Patient agrees to proceed with procedure.
--- NOTE | 2024-12-04 16:20 | P.CONIM_ITS ---
Assessment and Plan Assessment and plan (1) Small bowel obstruction: Code(s): K56.609 - Unspecified intestinal obstruction, unspecified as to partial versus complete obstruction Status: Acute Assessment and Plan: CT scan showed finding consistent with high-grade small bowel ischemia and findings suggestive of bowel ischemia. * Status post exploratory laparotomy with adhesiolysis, no evidence of ischemia following decompression. * Wound care, diet, pain control, and DVT prophylaxis deferred to Surgical Service. (2) Hypertension: Code(s): I10 - Essential (primary) hypertension Status: Acute Assessment and Plan: Blood pressures were reviewed and they have been running a bit high, likely due to pain missed medications this morning. * Currently n.p.o. with ice chips only. * Hopefully we can resume antihypertensives tomorrow. * Schedule Lopressor and add p.r.n. hydralazine. (3) Coronary artery disease: Code(s): I25.10 - Atherosclerotic heart disease of [place] coronary artery without angina pectoris Status: Acute Assessment and Plan: History of MS x2 and stents x3 in July 2021. * No acute or recent issues. * Resume clopidogrel when okay with primary service. (4) Obstructive sleep apnea on CPAP: Code(s): G47.33 - Obstructive sleep apnea (adult) (pediatric) Status: Acute Assessment and Plan: CPAP will be provided for the patient to use while hospitalized. Plan Thank you for allowing us to participate in this patient's care. Please do not hesitate to contact us with any questions. HPI Date of Consult Consult date: 12/05/24 Requesting Physician: Cass Ray MD Primary Care Provider: Bhavin Trevizo MD Consult Narrative Reason for consult: medical management Narrative: This is a very pleasant 59-year-old male with coronary artery disease with inferior ST-elevation myocardial infarction status post complex PCI to the RCA x3 in July 2021, hypertension, dyslipidemia, obstructive sleep apnea, Schatzki's rings, and hiatal hernia whom the hospitalist service has been consulted for help in managing his medical conditions. He presented to the emergency department via EMS from home earlier today for evaluation of fairly sudden onset periumbilical abdominal pain. He thought perhaps that he need to have a bowel movement however after having a small but otherwise unremarkable bowel movement his pain did not improve. CT of the abdomen done on arrival showed findings consistent with high-grade small-bowel obstruction with hazy opacification of the surrounding mesentery suggesting bowel ischemia and he was taking to the OR urgently where he underwent exploratory laparotomy with lysis of adhesions. Vital signs have been stable postoperatively though blood pressures have been running a bit high, likely due to pain. He denies fever, vomiting, hematemesis, hematochezia, and melena. Regarding his chronic medical conditions, he believes that they are well controlled on home medications. He last took his clopidogrel yesterday evening. He has not had any recent episodes of exertional chest pain or shortness of breath. He has never had abdominal surgery. Review of Systems 2 Review of Systems: 12 systems were reviewed and are negativ e except for as per HPI. [facility] Past Medical History Medical History (Updated 12/05/24 @ 14:22 by Yareli Rosario PA-C) ST elevation (STEMI) myocardial infarction (07/2021) Coronary artery disease Obstructive sleep apnea on CPAP Hyperlipidemia Hypertension Surgical History Surgical History (Updated 12/05/24 @ 14:22 by Yareli Rosario PA-C) History of coronary artery stent placement (07/2021) drug-eluting stent x3 to the RCA Family History Family History Father Acute myocardial infarction 1st heart attack at age 68, had several stents, valve replacement of dementia Mother Murmur, cardiac Daughter Diabetes type 1 Social History Social History Social History: Surrogate medical decision maker: Leti Beck, daughter ([phone]). Code status: Full code. 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 Spiritual care concerns: No Meds Home Medications and Allergies Home Medications ?Medication ?Instructions ?Recorded ?Confirmed ?Type atorvastatin 40 mg tablet 80 mg PO HS 04/29/23 12/04/24 History clopidogrel 75 mg tablet (Plavix) 75 mg PO HS 04/29/23 12/04/24 History isosorbide mononitrate 30 mg 30 mg PO HS 04/29/23 12/04/24 History tablet,extended release 24 hr losartan 25 mg tablet 25 mg PO HS 04/29/23 12/04/24 History ranolazine 500 mg tablet,extended 500 mg PO HS 04/29/23 12/04/24 History release,12 hr nitroglycerin 0.4 mg sublingual 0.4 mg sublingual Q5MIN PRN Chest 04/30/23 12/04/24 Rx tablet (Nitrostat) Pain #30 tabs melatonin 10 mg capsule 20 mg PO HS 12/04/24 12/04/24 History metoprolol tartrate 25 mg tablet 25 mg PO HS 12/04/24 12/04/24 History Allergies Allergy/AdvReac Type Severity Reaction Status Date / Time Penicillins Allergy Unknown Unknown Verified 12/04/24 21:33 Vital Signs Vital Signs - 24 hr 12/04/24 11:39 12/04/24 12:35 12/04/24 12:45 Temperature 97.9 F Pulse Rate 56 L 58 L 69 Respiratory Rate 16 19 20 Blood Pressure 148/87 H Pulse Oximetry 100 99 99 Oxygen Delivery Room Air 12/04/24 14:49 12/04/24 15:00 12/04/24 15:11 Temperature Pulse Rate 66 82 Respiratory Rate 16 20 Blood Pressure 155/76 H Pulse Oximetry 96 93 98 Oxygen Delivery 12/04/24 15:14 12/04/24 15:15 12/04/24 15:16 Temperature Pulse Rate 68 84 81 Respiratory Rate 20 19 24 H Blood Pressure 165/112 H 187/110 H Pulse Oximetry 100 98 96 Oxygen Delivery Exam 2 Narrative: General: Nontoxic-appearing gentleman sitting up in bed in moderate pain. Weight: 76 kg. BMI: 22.1. HEENT: PERRL, EOMI. Sclera anicteric. Tacky mucous membranes. NG tube in the left naris draining opaque fluid with scattered mcgowan particulate matter. Neck: Supple. Respiratory: Lungs are clear to auscultation bilaterally. Cardiovascular: Regular rate and rhythm with S1-S2. Gastrointestinal: Abdomen is soft and slightly distended with hypoactive bowel sounds. He is tender to palpation throughout the periumbilical region without voluntary guarding or rebound tenderness. Skin: Warm and dry. Generalized pallor. Extremities: No cyanosis, clubbing, or edema. Radial and pedal pulses intact. Neurological: Alert. Cranial nerves 2-12 are grossly intact. No gross focal deficits to casual conversation. Psychiatric: Pleasant and cooperative with normal mood and affect. Judgment and insight intact. Results Labs 12/05/24 04:49 12/05/24 04:49 Labs: Short CBC 12/04/24 Range/Units 13:19 WBC 11.2 H (4.5-10.0) K/mm3 Hgb 14.1 (14.0-18.0) g/dL Hct 42.1 (42.0-52.0) % Plt Count 195 (150-375) k/mm3 BMP 12/04/24 13:19 Sodium 143 Potassium 4.0 Chloride 105 Carbon Dioxide 26 BUN 14 Creatinine 0.83 Glucose 143 H Calcium 9.5 Cardiac Enzymes 12/04/24 Range/Units 13:19 Troponin I < 0.012 (0.000-0.034) ng/mL Liver Function 12/04/24 Range/Units 13:19 Total Bilirubin 0.8 (0.2-1.3) mg/dL AST 25 (17-59) U/L ALT 32 (6-50) U/L Alkaline Phosphatase 89 (38-126) U/L Albumin 4.5 (3.5-5.1) g/dL Urine 12/04/24 Range/Units 14:38 Urine Color Yellow (Yellow) Urine Appearance Clear (Clear) Urine pH 6.0 (5.0-9.0) Ur Specific [place] > 1.045 H (1.001-1.035) Urine Protein Trace (Negative) mg/dL Urine Glucose (UA) 1+ H (Negative) mg/dL Impressions Abdomen/Pelvis CT 12/04/24 14:38 IMPRESSION: Findings consistent with high-grade small bowel obstruction with hazy opacification of the surrounding mesentery suggesting bowel ischemia, as detailed above. Urgent surgical consultation is recommended. Abdomen X-Ray 12/04/24 16:10 IMPRESSION: Nasogastric tube in good position and ready for immediate use. Hospitalist [facility] Advance Care Plan I have confirmed that the patient's Advanced Care Plan is present, code status is documented, or surrogate decision maker is listed in patient medical record.: Yes Medication Reconciliation I have utilized all available resources to obtain, update and review the patients current medications (includes all prescriptions, OTC, herbals, cannabis, and nutritional supplements).: Yes
[2024-12-04 16:21] LABS: Reflex Lactic Acid Yes or No Add Lactic
[2024-12-04] MEDS: CEFEPIME 2 GM/NS 50 ML 2 GM/50 ML BAG IVPB ×2 (16:35→23:26)
--- NOTE | 2024-12-04 16:43 | P.PNAN_ITS ---
Anes - Initial Pre Proc Eval Procedure: Operation Date: 12/04/24 17:00 Proposed Procedures p Exploratory Laparotomy, Pos Bowel Resec - Cass Ray MD Date/Time: 12/04/24 16:43 Surgeon: Cass Ray MD Pre Op Diagnosis: abd pain Patient Data Age: 59 Gender: M Height: 1.85 m Weight: 76 kg Last Vital Signs Temp 36.6 C 12/04/24 11:39 Pulse 81 12/04/24 15:16 Resp 24 H 12/04/24 15:16 BP 187/110 H 12/04/24 15:16 Pulse Ox 96 12/04/24 15:16 O2 Del Method Room Air 12/04/24 11:39 Allergies Allergy/AdvReac Type Severity Reaction Status Date / Time Penicillins Allergy Unknown Unknown Verified 12/04/24 11:44 Home Medications ?Medication ?Instructions ?Recorded ?Confirmed ?Type aspirin 81 mg tablet,delayed 81 mg PO HS 04/29/23 02/29/24 History release atorvastatin 40 mg tablet 80 mg PO HS 04/29/23 02/29/24 History clopidogrel 75 mg tablet (Plavix) 75 mg PO HS 04/29/23 02/29/24 History isosorbide mononitrate 30 mg 30 mg PO HS 04/29/23 02/29/24 History tablet,extended release 24 hr losartan 25 mg tablet 25 mg PO HS 04/29/23 02/29/24 History ranolazine 500 mg tablet,extended 500 mg PO HS 04/29/23 02/29/24 History release,12 hr metoprolol tartrate 25 mg tablet 25 mg PO Q12H #60 tabs 04/30/23 02/29/24 Rx nitroglycerin 0.4 mg sublingual 0.4 mg sublingual Q5MIN PRN Chest 04/30/23 02/29/24 Rx tablet (Nitrostat) Pain #30 tabs Laboratory Tests 12/04/24 12/04/24 12/04/24 13:19 14:25 14:38 WBC 11.2 H K/mm3 (4.5-10.0) RBC 4.43 L M/mm3 (4.6-6.20) Hgb 14.1 g/dL (14.0-18.0) Hct 42.1 % (42.0-52.0) MCV 95.0 fl (80-100) MCH 31.8 pg (26-34) MCHC 33.5 g/dl (32-36) RDW 12.2 % (11.5-14.5) Plt Count 195 k/mm3 (150-375) MPV 10.6 H fl (7.4-10.4) Immature Gran % (Auto) 0.4 % (0-0.5) Neut % (Auto) 90.8 H % (45.5-73.1) Lymph % (Auto) 4.9 L % (18.3-44.2) [place] % (Auto) 3.8 % (2.6-8.5) Eos % (Auto) 0.0 % (0-4.4) Baso % (Auto) 0.1 L % (0.2-1.2) Lymph # (Auto) 0.55 L K/mm3 (0.9-3.2) [place] # (Auto) 0.4 K/mm3 (0.1-0.6) Eos # (Auto) 0.0 K/mm3 (0-0.3) Baso # (Auto) 0.0 K/mm3 (0.0-0.1) Abs Immat Gran (auto) 0.04 H K/mm3 (0.00-0.031) Absolute Neuts (auto) 10.1 H K/mm3 (1.3-6.7) Absolute Nucleated RBC 0.000 K/mm3 (0.0-0.012) Nucleated RBC % 0.0 % (0.0-0.2) PT 13.3 Seconds (11.1-14.7) INR 1.0 APTT 26.6 Seconds (22.3-36.8) Sodium 143 mmol/L (137-145) Potassium 4.0 mmol/L (3.4-5.0) Chloride 105 mmol/L (98-107) Carbon Dioxide 26 mmol/L (22-30) Anion Gap 12 mmol/L (4-12) BUN 14 mg/dL (9-20) Creatinine 0.83 mg/dL (0.7-1.3) Estim Creat Clear Calc 89 ml/min Estimated GFR > 60 (59 - ) Glucose 143 H mg/dL (65-110) Lactic Acid 3.8 H mmol/L (0.7-2.0) Calcium 9.5 mg/dL (8.4-10.2) Magnesium 1.6 mg/dL (1.6-2.3) Total Bilirubin 0.8 mg/dL (0.2-1.3) AST 25 U/L (17-59) ALT 32 U/L (6-50) Alkaline Phosphatase 89 U/L (38-126) Troponin I < 0.012 ng/mL (0.000-0.034) Total Protein 7.0 g/dL (6.3-8.2) Albumin 4.5 g/dL (3.5-5.1) Lipase 100 U/L (23-300) Urine Color Yellow (Yellow) Urine Appearance Clear (Clear) Urine pH 6.0 (5.0-9.0) Ur Specific [place] > 1.045 H (1.001-1.035) Urine Protein Trace mg/dL (Negative) Urine Glucose (UA) 1+ H mg/dL (Negative) Urine Ketones 1+ H mg/dL (Negative) Ur Blood (Man) Negative (Negative) Urine Nitrate Negative (Negative) Urine Bilirubin Negative (Negative) Urine Urobilinogen 0.2 mg/dL (<2.0) Add Ur Microanalysis Reviewed Leukocyte Esterase Rfl Negative ISABEL/UL (Negative) Urine RBC 0-2 /hpf (0-2) Urine WBC 0-5 /hpf (0-3) Ur Squamous Epith Cells None seen /hpf (Few) Urine Bacteria None seen /hpf Urine Casts 3-5 Urine Mucus Present /lpf Influenza A (RT-PCR) Negative (Negative) Influenza B (RT-PCR) Negative (Negative) RSV (RT-PCR) Negative (Negative) SARS-CoV-2 RNA (RT-PCR) Negative (Negative) Patient hx anesthesia problems: none Family hx anesthesia problems: none Results Review: All pre-operative results and documents have been reviewed as part of the pre- operative evaluation. COUNT INCLUDES THE [facility] Past Medical History Medical History History of ST elevation myocardial infarction (STEMI) Hyperlipidemia Hypertension Surgical History Surgical History H/O heart artery stent 3 drug-eluting stents RCA July 2021 Family History Family History Father Acute myocardial infarction 1st heart attack at age 68, had several stents, valve replacement of dementia Mother Murmur, cardiac Social History Social History Social History: Surrogate medical decision maker: Leti Beck, daughter ([phone]). Code status: Full code. 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 Informed Consent: The patient's anesthetic plan and its attendant risks and benefits were discussed with the patient/family/POA. Questions were solicited and answers provided to the satisfaction of the patient/family/POA.
[2024-12-04] MEDS: metroNIDAZOLE 500 MG/ISO 100ML 500 MG/100 ML BAG 100 MG IVPB (16:44)
--- NOTE | 2024-12-04 17:46 | SUR.OPER ---
350 urine output during case
[2024-12-04] MEDS: LACTATED RINGERS 1,000 ML 30 ML IV CONT (17:50)
--- NOTE | 2024-12-04 17:50 | W.PM.PROC2 ---
Procedure Note - Detailed Date of Procedure 12/04/24 Pre-op Diagnosis Small-bowel obstruction, small-bowel ischemia Post-op Diagnosis Same Procedure Performed exploratory laparotomy, lysis of adhesion Surgeon Cass Ray MD Anesthesia General Indications 59-year-old male presenting to the emergency department with high-grade small bowel obstruction. There was also signs and symptoms of ischemia on both imaging and laboratory. Findings High-grade small-bowel obstruction secondary to adhesive band in the left lower abdomen, evidence of ischemia in the small bowel with revitalization status post adhesiolysis Description of Procedure The patient was taken to the operating room and placed in the supine position. After adequate induction of general anesthesia, draped in the normal sterile fashion. A time-out was then done to confirm the patient's identity, as well as the procedure being performed. A periumbilical midline incision was then made to gain access into the peritoneal cavity. Once access was gained into the peritoneal cavity, a copious amount of ascitic fluid was noted. Upon examining the small intestine, there was noted to be very dilated and ischemic appearing small bowel. Using very careful manipulation, I was able to run the small bowel proximally to the ligament of [place]. The small bowel was noted to be dilated but otherwise unremarkable. The area in the distal jejunum was noted to be dusky and ischemic appearing. Upon running the small intestine distally, there was a adhesive band tethering the small intestine to the left lower quadrant, pelvic area. Upon lysing this adhesion, I was able to free up the distal jejunum and proximal ileum. At this point the ileum was noted to be complete decompressed and normal. I was able to easily run the small bowel distally to the cecum. After a few minutes, the area of ischemia in the distal jejunum was noted to be pink and viable. There was good palpable pulses in the mesentery. Given these findings, the small intestine was returned into the abdominal cavity. I copiously irrigated the cavity with warm saline. No other pathology was noted. I then closed the fascia with 0 looped PDS suture x2. The skin was closed with skin rajesh. The patient tolerated the procedure well. He was extubated in the operating room. He will be sent to the recovery room in stable condition. Estimated Blood Loss 50 Pathology None sent Complications No immediate complications Condition Stable Disposition PACU [facility] Billing Surgery - Charge Forward: Surgery Billing
--- NOTE | 2024-12-04 19:05 | PC.NURSE ---
This patient, Manav Beck, was admitted to IMU Room 207-01 12/04/24 at 1905. Patient/family oriented to hospital policies and general routines including ID bracelet, bed and alarms, visiting hours, pain management, procedures, bathroom and other care routines, personal items, smoking policy, room service/diet, and visiting hours. Information on how to activate the Rapid Response Team has been discussed. Patient/Family are encouraged to report perceived risks to care and to ask questions if they do not understand what they are told or what they should do.
[2024-12-04] MEDS: LACTATED RINGERS 1,000 ML 100 ML IV CONT (20:09)
[2024-12-04] MEDS: FAMOTIDINE 20 MG/2 ML VIAL IV PUSH (20:10)
[2024-12-04] MEDS: METOPROLOL TARTRATE INJ 5 MG/5 ML VIAL IV PUSH (21:45)
[2024-12-04 21:54] LABS: Lactic Acid 1.2 mmol/L (0.7-2.0)
[2024-12-05] VITALS (17 sets, daily range): BP systolic 137–165; BP diastolic 72–94; PULSE 63–85; RESP 16–20; TEMP 36.6–37.2; O2SAT 95–98; BMI 22.1
[2024-12-05] MEDS: metroNIDAZOLE 500 MG/ISO 100ML 500 MG/100 ML BAG 100 MG IVPB ×3 (00:41→17:08)
[2024-12-05] MEDS: HYDROmorphone HCL INJ (*CRX) 1 MG/ML SYR 0.5 MG IV PUSH (00:46)
--- NOTE | 2024-12-05 01:33 | PCRCNOTE ---
Pt states he does not wear CPAP at home & does not want one here
[2024-12-05] MEDS: HYDROmorphone HCL INJ (*CRX) 1 MG/ML SYR IV PUSH ×3 (04:30→15:51)
[2024-12-05] MEDS: METOPROLOL TARTRATE INJ 5 MG/5 ML VIAL IV PUSH ×4 (04:31→21:30)
[2024-12-05 04:55] LABS: Hematocrit 37.3 % (42.0-52.0); Hemoglobin 12.4 g/dL (14.0-18.0); Mean Corpuscular HGB Conc 33.2 g/dl (32-36); Mean Corpuscular Volume 96.1 fl (80-100); Mean Platelet Volume 10.7 fl (7.4-10.4); Platelet Count Result 174 k/mm3 (150-375); Red Blood Count 3.88 M/mm3 (4.6-6.20); Red Cell Distribution Width 12.6 % (11.5-14.5); White Blood Count 10.7 K/mm3 (4.5-10.0)
[2024-12-05 05:09] LABS: Anion Gap 7 mmol/L (4-12); Blood Urea Nitrogen 12 mg/dL (9-20); Calcium 8.6 mg/dL (8.4-10.2); Carbon Dioxide 26 mmol/L (22-30); Chloride 105 mmol/L (98-107); Estimated CRCL calculation 102 ml/min; Estimated Glomerular Filt Rate > 60; Glucose 119 mg/dL (65-110); Magnesium 1.5 mg/dL (1.6-2.3); Potassium 4.3 mmol/L (3.4-5.0); Sodium 138 mmol/L (137-145)
[2024-12-05 05:10] LABS: Lactic Acid Reflex 1.5 mmol/L (0.7-2.0)
[2024-12-05] MEDS: LACTATED RINGERS 1,000 ML 100 ML IV CONT ×2 (07:44→21:30)
--- NOTE | 2024-12-05 08:33 | P.PNIM_ITS ---
Progress Note: A&P Assessment and Plan (1) Small bowel obstruction: Code(s): K56.609 - Unspecified intestinal obstruction, unspecified as to partial versus complete obstruction Status: Acute Assessment and Plan: CT scan showed finding consistent with high-grade small bowel ischemia and findings suggestive of bowel ischemia. * Status post exploratory laparotomy with adhesiolysis without ischemia following decompression. * Wound care, diet, pain control, and DVT prophylaxis deferred to Surgical Service. (2) Hypertension: Code(s): I10 - Essential (primary) hypertension Status: Acute Assessment and Plan: Blood pressures were reviewed and they have been running a bit high, likely due to pain missed medications this morning. * Currently n.p.o. with ice chips only. * Hopefully we can resume antihypertensives tomorrow. * P.r.n. hydralazine and Lopressor as needed. (3) Coronary artery disease: Code(s): I25.10 - Atherosclerotic heart disease of [place] coronary artery without angina pectoris Status: Acute Assessment and Plan: History of [place] x2 and stents x3 in July 2021. * No acute or recent issues. * Resume clopidogrel when okay with primary service. (4) Obstructive sleep apnea on CPAP: Code(s): G47.33 - Obstructive sleep apnea (adult) (pediatric) Status: Acute Assessment and Plan: CPAP will be provided for the patient to use while hospitalized. Plan Thank you for allowing us to participate in this patient's care. Please do not hesitate to contact us with any questions. Subjective Date/time seen: 12/05/24 08:33 Interval history: Interval History: Patient is admitted in the setting of high-grade bowel obstruction with possible mesenteric ischemia the patient does have a elevated lactic acid 3.8.Underwent exploratory laparotomy with adhesiolysis without ischemia following decompression.Of note patient has stent in heart. 12/05: Endorse abdominal pain. Patient denies any previous abdominal surgeries. Review of Systems Review of Systems: 12 systems were reviewed and are negativ e except for as per HPI. Exam Narrative: General: Nontoxic-appearing gentleman sitting up in bed in moderate pain. Weight: 76 kg. BMI: 22.1. HEENT: PERRL, EOMI. Sclera anicteric. Tacky mucous membranes. NG tube in the left naris draining opaque fluid with scattered [place] particulate matter. Neck: Supple. Respiratory: Lungs are clear to auscultation bilaterally. Cardiovascular: Regular rate and rhythm with S1-S2. Gastrointestinal: Abdomen is soft and slightly distended with hypoactive bowel sounds. He is tender to palpation throughout the periumbilical region without voluntary guarding or rebound tenderness. Skin: Warm and dry. Generalized pallor. Extremities: No cyanosis, clubbing, or edema. Radial and pedal pulses intact. Neurological: Alert. Cranial nerves 2-12 are grossly intact. No gross focal deficits to casual conversation. Psychiatric: Pleasant and cooperative with normal mood and affect. Judgment and insight intact. Objective Data Vital Signs Vital Signs: Vital Signs - 24 hr 12/04/24 11:39 12/04/24 12:35 12/04/24 12:45 Temperature 97.9 F Pulse Rate 56 L 58 L 69 Respiratory Rate 16 19 20 Blood Pressure 148/87 H Pulse Oximetry 100 99 99 Oxygen Delivery Room Air Oxygen Flow Rate 12/04/24 14:49 12/04/24 15:00 12/04/24 15:11 Temperature Pulse Rate 66 82 Respiratory Rate 16 20 Blood Pressure 155/76 H Pulse Oximetry 96 93 98 Oxygen Delivery Oxygen Flow Rate 12/04/24 15:14 12/04/24 15:15 12/04/24 15:16 Temperature Pulse Rate 68 84 81 Respiratory Rate 20 19 24 H Blood Pressure 165/112 H 187/110 H Pulse Oximetry 100 98 96 Oxygen Delivery Oxygen Flow Rate 12/04/24 17:50 12/04/24 18:05 12/04/24 18:20 Temperature 98.6 F Pulse Rate 83 84 82 Respiratory Rate 14 14 12 Blood Pressure 140/80 142/84 H 152/88 H Pulse Oximetry 98 100 100 Oxygen Delivery Simple Face Mask Simple Face Mask Simple Face Mask Oxygen Flow Rate 6 6 6 12/04/24 18:35 12/04/24 18:50 12/04/24 18:59 Temperature 98.9 F Pulse Rate 98 103 H 100 Respiratory Rate 18 18 16 Blood Pressure 152/92 H 184/94 H 174/94 H Pulse Oximetry 100 95 94 Oxygen Delivery Room Air Room Air Room Air Oxygen Flow Rate 12/04/24 19:00 12/04/24 19:15 12/04/24 19:23 Temperature 97.8 F 98.1 F Pulse Rate 101 H 99 99 Respiratory Rate 16 16 Blood Pressure 172/101 H 157/97 H Pulse Oximetry 95 94 Oxygen Delivery Oxygen Flow Rate 12/04/24 19:45 12/04/24 20:00 12/04/24 20:00 Temperature 98.0 F 98.2 F Pulse Rate 98 101 H Respiratory Rate 14 16 Blood Pressure 163/88 H 158/82 H Pulse Oximetry 95 95 Oxygen Delivery Room Air Oxygen Flow Rate 12/04/24 20:00 12/04/24 20:45 12/04/24 21:45 Temperature 98.2 F Pulse Rate 102 H 78 98 Respiratory Rate 14 Blood Pressure 125/68 Pulse Oximetry 96 Oxygen Delivery Oxygen Flow Rate 12/04/24 22:00 12/05/24 00:00 12/05/24 00:00 Temperature 98.4 F Pulse Rate 89 84 Respiratory Rate 18 Blood Pressure 152/94 H Pulse Oximetry 96 Oxygen Delivery Room Air Oxygen Flow Rate 12/05/24 00:00 12/05/24 01:59 12/05/24 04:00 Temperature Pulse Rate 78 79 Respiratory Rate Blood Pressure Pulse Oximetry Oxygen Delivery Room Air Oxygen Flow Rate 12/05/24 04:00 12/05/24 04:24 12/05/24 04:31 Temperature 98.1 F Pulse Rate 70 76 70 Respiratory Rate 16 Blood Pressure 142/86 H Pulse Oximetry 97 Oxygen Delivery Oxygen Flow Rate 12/05/24 05:46 12/05/24 08:10 Temperature 98.1 F Pulse Rate 70 79 Respiratory Rate 20 Blood Pressure 139/72 Pulse Oximetry 95 Oxygen Delivery Oxygen Flow Rate Intake/Output Intake/Output: Intake & Output 12/02/24 12/03/24 12/04/24 12/05/24 23:59 23:59 23:59 23:59 Intake Total 2750 1150 Output Total 125 550 Balance 2625 600 Meds/Results Medications: Active Medications Generic Name Dose Route Start Last Admin Trade Name Freq PRN Reason Stop Dose Admin Enoxaparin Sodium 40 mg 12/05/24 09:00 Enoxaparin 40 Mg/0.4 Ml Syringe SUB-Q DAILY KATHRYN Famotidine 20 mg 12/04/24 21:00 12/04/24 20:10 Famotidine 20 Mg/2 Ml Vial IV PUSH 20 mg Q12HR KATHRYN Administration Hydralazine HCl 10 mg 12/04/24 20:27 Hydralazine Hcl 20 Mg/Ml Vial IV PUSH Q6H PRN SBP > 165 or DBP > 105 Hydromorphone HCl 1 mg 12/04/24 19:00 12/05/24 04:30 Hydromorphone Hcl Inj (*Crx) 1 Mg/Ml Syr IV PUSH 1 mg Q2H PRN Administration Breakthrough Pain Rated 7-10 or NPO Hydromorphone HCl 0.5 mg 12/04/24 19:00 12/05/24 00:46 Hydromorphone Hcl Inj (*Crx) 1 Mg/Ml Syr IV PUSH 0.5 mg Q2H PRN Administration Breakthrough Pain Rated 4-6 or NPO Lactated Ringer's 1,000 mls @ 100 mls/hr 12/04/24 19:00 12/05/24 07:44 Lr - Lactated Ringers Iv IV CONT 100 mls/hr .Q10H KATHRYN Administration Ibuprofen 800 mg in 200 mls @ 400 mls/hr 12/04/24 19:00 Caldolor 800 Mg/200 Ml IVPB Q6H PRN Breakthrough Pain Rated 1-3 or NPO Cefepime HCl 2 gm in 50 mls @ 100 mls/hr 12/05/24 00:00 12/05/24 00:40 Maxipime 2 Gm/Ns 50 Ml IVPB Infused Q8H KATHRYN Infusion Metronidazole 500 mg in 100 mls @ 100 mls/hr 12/05/24 00:00 12/05/24 01:41 Flagyl 500 Mg/Iso Soln 100 Ml IVPB Infused Q8H KATHRYN Infusion Metoprolol Tartrate 5 mg 12/04/24 21:00 12/05/24 04:31 Metoprolol Tartrate Inj 5 Mg/5 Ml Vial IV PUSH 5 mg Q6H KATHRYN Administration Naloxone HCl 0.1 mg 12/04/24 19:00 Naloxone Hcl 0.4 Mg/Ml Vial IV PUSH Q2M PRN Opiate Reversal Ondansetron HCl 4 mg 12/04/24 19:00 Ondansetron Inj 4 Mg/2 Ml Vial IV PUSH Q4H PRN Nausea And Vomiting Radiology Results: ITS Impressions Abdomen/Pelvis CT 12/04/24 14:38 IMPRESSION: Findings consistent with high-grade small bowel obstruction with hazy opacification of the surrounding mesentery suggesting bowel ischemia, as detailed above. Urgent surgical consultation is recommended. ADDENDUM: 12/04/24 1451 Findings and recommendations discussed with Dr. Tucker at 2:45 PM on 12/04/2024 Abdomen X-Ray 12/04/24 16:10 IMPRESSION: Nasogastric tube in good position and ready for immediate use. Labs Labs: Laboratory Results - last 24 hr 12/04/24 12/04/24 12/04/24 13:19 14:25 14:38 WBC 11.2 H RBC 4.43 L Hgb 14.1 Hct 42.1 MCV 95.0 MCH 31.8 MCHC 33.5 RDW 12.2 Plt Count 195 MPV 10.6 H Immature Gran % (Auto) 0.4 Neut % (Auto) 90.8 H Lymph % (Auto) 4.9 L [place] % (Auto) 3.8 Eos % (Auto) 0.0 Baso % (Auto) 0.1 L Lymph # (Auto) 0.55 L [place] # (Auto) 0.4 Eos # (Auto) 0.0 Baso # (Auto) 0.0 Abs Immat Gran (auto) 0.04 H Absolute Neuts (auto) 10.1 H Absolute Nucleated RBC 0.000 Nucleated RBC % 0.0 PT 13.3 INR 1.0 APTT 26.6 Sodium 143 Potassium 4.0 Chloride 105 Carbon Dioxide 26 Anion Gap 12 BUN 14 Creatinine 0.83 Estim Creat Clear Calc 89 Estimated GFR > 60 Glucose 143 H Lactic Acid 3.8 H Calcium 9.5 Magnesium 1.6 Total Bilirubin 0.8 AST 25 ALT 32 Alkaline Phosphatase 89 Troponin I < 0.012 Total Protein 7.0 Albumin 4.5 Lipase 100 Urine Color Yellow Urine Appearance Clear Urine pH 6.0 Ur Specific [place] > 1.045 H Urine Protein Trace Urine Glucose (UA) 1+ H Urine Ketones 1+ H Ur Blood (Man) Negative Urine Nitrate Negative Urine Bilirubin Negative Urine Urobilinogen 0.2 Add Ur Microanalysis Reviewed Leukocyte Esterase Rfl Negative Urine RBC 0-2 Urine WBC 0-5 Ur Squamous Epith Cells None seen Urine Bacteria None seen Urine Casts 3-5 Urine Mucus Present Influenza A (RT-PCR) Negative Influenza B (RT-PCR) Negative RSV (RT-PCR) Negative SARS-CoV-2 RNA (RT-PCR) Negative 12/04/24 12/05/24 21:37 04:49 WBC 10.7 H RBC 3.88 L Hgb 12.4 L Hct 37.3 L MCV 96.1 MCH 32.0 MCHC 33.2 RDW 12.6 Plt Count 174 MPV 10.7 H Immature Gran % (Auto) Neut % (Auto) Lymph % (Auto) [place] % (Auto) Eos % (Auto) Baso % (Auto) Lymph # (Auto) [place] # (Auto) Eos # (Auto) Baso # (Auto) Abs Immat Gran (auto) Absolute Neuts (auto) Absolute Nucleated RBC Nucleated RBC % PT INR APTT Sodium 138 Potassium 4.3 Chloride 105 Carbon Dioxide 26 Anion Gap 7 BUN 12 Creatinine 0.72 Estim Creat Clear Calc 102 Estimated GFR > 60 Glucose 119 H Lactic Acid 1.2 1.5 Calcium 8.6 Magnesium 1.5 L Total Bilirubin AST ALT Alkaline Phosphatase Troponin I Total Protein Albumin Lipase Urine Color Urine Appearance Urine pH Ur Specific [place] Urine Protein Urine Glucose (UA) Urine Ketones Ur Blood (Man) Urine Nitrate Urine Bilirubin Urine Urobilinogen Add Ur Microanalysis Leukocyte Esterase Rfl Urine RBC Urine WBC Ur Squamous Epith Cells Urine Bacteria Urine Casts Urine Mucus Influenza A (RT-PCR) Influenza B (RT-PCR) RSV (RT-PCR) SARS-CoV-2 RNA (RT-PCR) Hospitalist MIPS Advance Care Plan I have confirmed that the patient's Advanced Care Plan is present, code status is documented, or surrogate decision maker is listed in patient medical record.: Yes Medication Reconciliation I have utilized all available resources to obtain, update and review the patients current medications (includes all prescriptions, OTC, herbals, cannabis, and nutritional supplements).: Yes
[2024-12-05] MEDS: CEFEPIME 2 GM/NS 50 ML 2 GM/50 ML BAG IVPB ×2 (08:54→15:51)
[2024-12-05] MEDS: FAMOTIDINE 20 MG/2 ML VIAL IV PUSH ×2 (08:54→21:32)
[2024-12-05] MEDS: ENOXAPARIN 40 MG/0.4 ML SYRINGE SUB-Q (08:54)
--- NOTE | 2024-12-05 10:43 | P.PNAN_ITS ---
Anes - Prog Note Post-Op Date/Time: 12/05/24 10:43 Cardiovascular status: normal Respiratory status: normal Airway patency: baseline Mental status: baseline Vital Signs: Last Vital Signs Temp 36.7 C 12/05/24 08:10 Pulse 82 12/05/24 08:54 Resp 20 12/05/24 08:10 BP 139/72 12/05/24 08:10 Pulse Ox 95 12/05/24 08:10 O2 Del Method Room Air 12/05/24 04:00 O2 Flow Rate 6 12/04/24 18:20 Pain Score (VAS): 5 I/O: Intake & Output 12/04/24 12/05/24 12/05/24 23:59 07:59 15:59 Intake Total 750 1150 50 Output Total 125 550 Balance 625 600 50 Laboratory Tests 12/05/24 04:49 12/05/24 04:49 12/04/24 12/04/24 12/04/24 13:19 14:25 14:38 WBC 11.2 H RBC 4.43 L Hgb 14.1 Hct 42.1 MCV 95.0 MCH 31.8 MCHC 33.5 RDW 12.2 Plt Count 195 MPV 10.6 H Immature Gran % (Auto) 0.4 Neut % (Auto) 90.8 H Lymph % (Auto) 4.9 L [place] % (Auto) 3.8 Eos % (Auto) 0.0 Baso % (Auto) 0.1 L Lymph # (Auto) 0.55 L [place] # (Auto) 0.4 Eos # (Auto) 0.0 Baso # (Auto) 0.0 Abs Immat Gran (auto) 0.04 H Absolute Neuts (auto) 10.1 H Absolute Nucleated RBC 0.000 Nucleated RBC % 0.0 PT 13.3 INR 1.0 APTT 26.6 Sodium 143 Potassium 4.0 Chloride 105 Carbon Dioxide 26 Anion Gap 12 BUN 14 Creatinine 0.83 Estim Creat Clear Calc 89 Estimated GFR > 60 Glucose 143 H Lactic Acid 3.8 H Calcium 9.5 Magnesium 1.6 Total Bilirubin 0.8 AST 25 ALT 32 Alkaline Phosphatase 89 Troponin I < 0.012 Total Protein 7.0 Albumin 4.5 Lipase 100 Urine Color Yellow Urine Appearance Clear Urine pH 6.0 Ur Specific [place] > 1.045 H Urine Protein Trace Urine Glucose (UA) 1+ H Urine Ketones 1+ H Ur Blood (Man) Negative Urine Nitrate Negative Urine Bilirubin Negative Urine Urobilinogen 0.2 Add Ur Microanalysis Reviewed Leukocyte Esterase Rfl Negative Urine RBC 0-2 Urine WBC 0-5 Ur Squamous Epith Cells None seen Urine Bacteria None seen Urine Casts 3-5 Urine Mucus Present Influenza A (RT-PCR) Negative Influenza B (RT-PCR) Negative RSV (RT-PCR) Negative SARS-CoV-2 RNA (RT-PCR) Negative 12/04/24 12/05/24 21:37 04:49 WBC 10.7 H RBC 3.88 L Hgb 12.4 L Hct 37.3 L MCV 96.1 MCH 32.0 MCHC 33.2 RDW 12.6 Plt Count 174 MPV 10.7 H Immature Gran % (Auto) Neut % (Auto) Lymph % (Auto) [place] % (Auto) Eos % (Auto) Baso % (Auto) Lymph # (Auto) [place] # (Auto) Eos # (Auto) Baso # (Auto) Abs Immat Gran (auto) Absolute Neuts (auto) Absolute Nucleated RBC Nucleated RBC % PT INR APTT Sodium 138 Potassium 4.3 Chloride 105 Carbon Dioxide 26 Anion Gap 7 BUN 12 Creatinine 0.72 Estim Creat Clear Calc 102 Estimated GFR > 60 Glucose 119 H Lactic Acid 1.2 1.5 Calcium 8.6 Magnesium 1.5 L Total Bilirubin AST ALT Alkaline Phosphatase Troponin I Total Protein Albumin Lipase Urine Color Urine Appearance Urine pH Ur Specific [place] Urine Protein Urine Glucose (UA) Urine Ketones Ur Blood (Man) Urine Nitrate Urine Bilirubin Urine Urobilinogen Add Ur Microanalysis Leukocyte Esterase Rfl Urine RBC Urine WBC Ur Squamous Epith Cells Urine Bacteria Urine Casts Urine Mucus Influenza A (RT-PCR) Influenza B (RT-PCR) RSV (RT-PCR) SARS-CoV-2 RNA (RT-PCR) Patient Feedback: Patient satisfied with anesthetic care.
[2024-12-05] MEDS: IBUPROFEN IV 800 MG/200 ML 800 MG/200 ML BAG 400 MG IVPB (13:22)
--- NOTE | 2024-12-05 13:59 | PM.PNGS ---
Progress Note: A&P Assessment and Plan (1) Small bowel obstruction: Code(s): K56.609 - Unspecified intestinal obstruction, unspecified as to partial versus complete obstruction Status: Acute Assessment and Plan: doing well, await ROBF, cont NG and bowel rest for now, encourage OOB/IS Subjective Subjective Date/Time Seen: 12/05/24 13:59 Interval history: feels pretty good, moderate incisional soreness c movt Review of Systems Review of Systems: All systems reviewed & are unremarkable except as noted in HPI and below Exam Const: General: cooperative, comfortable and no acute distress Resp: Auscultation: clear to auscultation bilaterally Cardio: Rate: regular rate Rhythm: regular rhythm GI: Inspection: normal to inspection, distended and incision GI Palp: Yes abdominal tenderness, Yes Soft to palpation, Yes Tenderness to palpation present (GI), No Guarding due to palpation present (GI) and No Rigid due to palpation Objective Data Vital Signs Vital Signs: Vital Signs - 24 hr 12/04/24 14:49 12/04/24 15:00 12/04/24 15:11 Temperature Pulse Rate 66 82 Respiratory Rate 16 20 Blood Pressure 155/76 H Pulse Oximetry 96 93 98 Oxygen Delivery Oxygen Flow Rate 12/04/24 15:14 12/04/24 15:15 12/04/24 15:16 Temperature Pulse Rate 68 84 81 Respiratory Rate 20 19 24 H Blood Pressure 165/112 H 187/110 H Pulse Oximetry 100 98 96 Oxygen Delivery Oxygen Flow Rate 12/04/24 17:50 12/04/24 18:05 12/04/24 18:20 Temperature 37.0 C Pulse Rate 83 84 82 Respiratory Rate 14 14 12 Blood Pressure 140/80 142/84 H 152/88 H Pulse Oximetry 98 100 100 Oxygen Delivery Simple Face Mask Simple Face Mask Simple Face Mask Oxygen Flow Rate 6 6 6 12/04/24 18:35 12/04/24 18:50 12/04/24 18:59 Temperature 37.2 C Pulse Rate 98 103 H 100 Respiratory Rate 18 18 16 Blood Pressure 152/92 H 184/94 H 174/94 H Pulse Oximetry 100 95 94 Oxygen Delivery Room Air Room Air Room Air Oxygen Flow Rate 12/04/24 19:00 12/04/24 19:15 12/04/24 19:23 Temperature 36.6 C 36.7 C Pulse Rate 101 H 99 99 Respiratory Rate 16 16 Blood Pressure 172/101 H 157/97 H Pulse Oximetry 95 94 Oxygen Delivery Oxygen Flow Rate 12/04/24 19:45 12/04/24 20:00 12/04/24 20:00 Temperature 36.7 C 36.8 C Pulse Rate 98 101 H Respiratory Rate 14 16 Blood Pressure 163/88 H 158/82 H Pulse Oximetry 95 95 Oxygen Delivery Room Air Oxygen Flow Rate 12/04/24 20:00 12/04/24 20:45 12/04/24 21:45 Temperature 36.8 C Pulse Rate 102 H 78 98 Respiratory Rate 14 Blood Pressure 125/68 Pulse Oximetry 96 Oxygen Delivery Oxygen Flow Rate 12/04/24 22:00 12/05/24 00:00 12/05/24 00:00 Temperature 36.9 C Pulse Rate 89 84 Respiratory Rate 18 Blood Pressure 152/94 H Pulse Oximetry 96 Oxygen Delivery Room Air Oxygen Flow Rate 12/05/24 00:00 12/05/24 01:59 12/05/24 04:00 Temperature Pulse Rate 78 79 Respiratory Rate Blood Pressure Pulse Oximetry Oxygen Delivery Room Air Oxygen Flow Rate 12/05/24 04:00 12/05/24 04:24 12/05/24 04:31 Temperature 36.7 C Pulse Rate 70 76 70 Respiratory Rate 16 Blood Pressure 142/86 H Pulse Oximetry 97 Oxygen Delivery Oxygen Flow Rate 12/05/24 05:46 12/05/24 08:00 12/05/24 08:00 Temperature Pulse Rate 70 79 77 Respiratory Rate 20 Blood Pressure Pulse Oximetry 95 Oxygen Delivery Room Air Oxygen Flow Rate 12/05/24 08:10 12/05/24 08:54 12/05/24 10:00 Temperature 36.7 C Pulse Rate 79 82 63 Respiratory Rate 20 Blood Pressure 139/72 Pulse Oximetry 95 Oxygen Delivery Oxygen Flow Rate 12/05/24 11:42 12/05/24 12:00 12/05/24 12:00 Temperature 36.8 C Pulse Rate 80 80 71 Respiratory Rate 20 20 Blood Pressure 165/85 H Pulse Oximetry 98 98 Oxygen Delivery Room Air Oxygen Flow Rate Intake/Output Intake/Output: Intake & Output 12/02/24 12/03/24 12/04/24 12/05/24 23:59 23:59 23:59 23:59 Intake Total 2750 1200 Output Total 125 550 Balance 2625 650 Meds/Results Medications: Active Medications Generic Name Dose Route Start Last Admin Trade Name Freq PRN Reason Stop Dose Admin Enoxaparin Sodium 40 mg 12/05/24 09:00 12/05/24 08:54 Enoxaparin 40 Mg/0.4 Ml Syringe SUB-Q 40 mg DAILY KATHRYN Administration Famotidine 20 mg 12/04/24 21:00 12/05/24 08:54 Famotidine 20 Mg/2 Ml Vial IV PUSH 20 mg Q12HR KATHRYN Administration Hydralazine HCl 10 mg 12/04/24 20:27 Hydralazine Hcl 20 Mg/Ml Vial IV PUSH Q6H PRN SBP > 165 or DBP > 105 Hydromorphone HCl 1 mg 12/04/24 19:00 12/05/24 09:01 Hydromorphone Hcl Inj (*Crx) 1 Mg/Ml Syr IV PUSH 1 mg Q2H PRN Administration Breakthrough Pain Rated 7-10 or NPO Hydromorphone HCl 0.5 mg 12/04/24 19:00 12/05/24 00:46 Hydromorphone Hcl Inj (*Crx) 1 Mg/Ml Syr IV PUSH 0.5 mg Q2H PRN Administration Breakthrough Pain Rated 4-6 or NPO Lactated Ringer's 1,000 mls @ 100 mls/hr 12/04/24 19:00 12/05/24 07:44 Lr - Lactated Ringers Iv IV CONT 100 mls/hr .Q10H KATHRYN Administration Ibuprofen 800 mg in 200 mls @ 400 mls/hr 12/04/24 19:00 12/05/24 13:22 Caldolor 800 Mg/200 Ml IVPB 400 mls/hr Q6H PRN Administration Breakthrough Pain Rated 1-3 or NPO Cefepime HCl 2 gm in 50 mls @ 100 mls/hr 12/05/24 00:00 12/05/24 09:43 Maxipime 2 Gm/Ns 50 Ml IVPB Infused Q8H KATHRYN Infusion Metronidazole 500 mg in 100 mls @ 100 mls/hr 12/05/24 00:00 12/05/24 09:43 Flagyl 500 Mg/Iso Soln 100 Ml IVPB 100 mls/hr Q8H KATHRYN Administration Metoprolol Tartrate 5 mg 12/04/24 21:00 12/05/24 08:54 Metoprolol Tartrate Inj 5 Mg/5 Ml Vial IV PUSH 5 mg Q6H KATHRYN Administration Naloxone HCl 0.1 mg 12/04/24 19:00 Naloxone Hcl 0.4 Mg/Ml Vial IV PUSH Q2M PRN Opiate Reversal Ondansetron HCl 4 mg 12/04/24 19:00 Ondansetron Inj 4 Mg/2 Ml Vial IV PUSH Q4H PRN Nausea And Vomiting Radiology Results: ITS Impressions Abdomen/Pelvis CT 12/04/24 14:38 IMPRESSION: Findings consistent with high-grade small bowel obstruction with hazy opacification of the surrounding mesentery suggesting bowel ischemia, as detailed above. Urgent surgical consultation is recommended. ADDENDUM: 12/04/24 [id number] Findings and recommendations discussed with Dr. Tucker at 2:45 PM on 12/04/2024 Abdomen X-Ray 12/04/24 16:10 IMPRESSION: Nasogastric tube in good position and ready for immediate use. Labs Labs: Laboratory Results - last 24 hr 12/04/24 12/04/24 12/04/24 13:19 14:25 14:38 WBC RBC Hgb Hct MCV MCH MCHC RDW Plt Count MPV PT 13.3 INR 1.0 APTT 26.6 Sodium Potassium Chloride Carbon Dioxide Anion Gap BUN Creatinine Estim Creat Clear Calc Estimated GFR Glucose Lactic Acid Calcium Magnesium Urine Color Yellow Urine Appearance Clear Urine pH 6.0 Ur Specific [place] > 1.045 H Urine Protein Trace Urine Glucose (UA) 1+ H Urine Ketones 1+ H Ur Blood (Man) Negative Urine Nitrate Negative Urine Bilirubin Negative Urine Urobilinogen 0.2 Add Ur Microanalysis Reviewed Leukocyte Esterase Rfl Negative Urine RBC 0-2 Urine WBC 0-5 Ur Squamous Epith Cells None seen Urine Bacteria None seen Urine Casts 3-5 Urine Mucus Present Influenza A (RT-PCR) Negative Influenza B (RT-PCR) Negative RSV (RT-PCR) Negative SARS-CoV-2 RNA (RT-PCR) Negative 12/04/24 12/05/24 21:37 04:49 WBC 10.7 H RBC 3.88 L Hgb 12.4 L Hct 37.3 L MCV 96.1 MCH 32.0 MCHC 33.2 RDW 12.6 Plt Count 174 MPV 10.7 H PT INR APTT Sodium 138 Potassium 4.3 Chloride 105 Carbon Dioxide 26 Anion Gap 7 BUN 12 Creatinine 0.72 Estim Creat Clear Calc 102 Estimated GFR > 60 Glucose 119 H Lactic Acid 1.2 1.5 Calcium 8.6 Magnesium 1.5 L Urine Color Urine Appearance Urine pH Ur Specific [place] Urine Protein Urine Glucose (UA) Urine Ketones Ur Blood (Man) Urine Nitrate Urine Bilirubin Urine Urobilinogen Add Ur Microanalysis Leukocyte Esterase Rfl Urine RBC Urine WBC Ur Squamous Epith Cells Urine Bacteria Urine Casts Urine Mucus Influenza A (RT-PCR) Influenza B (RT-PCR) RSV (RT-PCR) SARS-CoV-2 RNA (RT-PCR)
--- NOTE | 2024-12-05 18:32 | PC.NURSE ---
This patient, Manav Beck, was transferred to [[facility] ] on 12/05/24 at 1824. Personal belongings sent with patient. Report given to [ MARIA A Arellano @ [phone]]. Appropriate documentation sent with patient.
[2024-12-06] VITALS (8 sets, daily range): BP systolic 113–156; BP diastolic 48–91; PULSE 64–89; RESP 18; TEMP 36.4–37; O2SAT 94–100
[2024-12-06] MEDS: CEFEPIME 2 GM/NS 50 ML 2 GM/50 ML BAG IVPB ×2 (01:29→17:06)
[2024-12-06] MEDS: metroNIDAZOLE 500 MG/ISO 100ML 500 MG/100 ML BAG 100 MG IVPB ×2 (02:00→17:06)
[2024-12-06] MEDS: METOPROLOL TARTRATE INJ 5 MG/5 ML VIAL IV PUSH ×4 (04:00→20:57)
--- NOTE | 2024-12-06 08:15 | P.PNIM_ITS ---
Progress Note: A&P Assessment and Plan (1) Small bowel obstruction: Code(s): K56.609 - Unspecified intestinal obstruction, unspecified as to partial versus complete obstruction Status: Acute Assessment and Plan: CT scan showed finding consistent with high-grade small bowel ischemia and findings suggestive of bowel ischemia. * Status post exploratory laparotomy with adhesiolysis without ischemia following decompression. * Wound care, diet, pain control, and DVT prophylaxis deferred to Surgical Service. (2) Hypertension: Code(s): I10 - Essential (primary) hypertension Status: Acute Assessment and Plan: Blood pressures were reviewed and they have been running a bit high, likely due to pain missed medications this morning. * Currently n.p.o. with ice chips only. * Hopefully we can resume antihypertensives tomorrow. * P.r.n. hydralazine and Lopressor as needed. (3) Coronary artery disease: Code(s): I25.10 - Atherosclerotic heart disease of [place] coronary artery without angina pectoris Status: Acute Assessment and Plan: History of [place] x2 and stents x3 in July 2021. * No acute or recent issues. * Resume clopidogrel when okay with primary service. (4) Obstructive sleep apnea on CPAP: Code(s): G47.33 - Obstructive sleep apnea (adult) (pediatric) Status: Acute Assessment and Plan: CPAP will be provided for the patient to use while hospitalized. Subjective Date/time seen: 12/06/24 08:15 Interval history: Drop in hemoglobin possibly due to dilution. Patient is still in NPO. Resume anticoagulation as per surgical team Review of Systems Review of Systems: 12 systems were reviewed and are negativ e except for as per HPI. Exam Narrative: General: Nontoxic-appearing gentleman sitting up in bed in moderate pain. Weight: 76 kg. BMI: 22.1. HEENT: PERRL, EOMI. Sclera anicteric. Tacky mucous membranes. NG tube in the left naris draining opaque fluid with scattered mcgowan particulate matter. Neck: Supple. Respiratory: Lungs are clear to auscultation bilaterally. Cardiovascular: Regular rate and rhythm with S1-S2. Gastrointestinal: Abdomen is soft and slightly distended with hypoactive bowel sounds. He is tender to palpation throughout the periumbilical region without voluntary guarding or rebound tenderness. Skin: Warm and dry. Generalized pallor. Extremities: No cyanosis, clubbing, or edema. Radial and pedal pulses intact. Neurological: Alert. Cranial nerves 2-12 are grossly intact. No gross focal deficits to casual conversation. Psychiatric: Pleasant and cooperative with normal mood and affect. Judgment and insight intact. Objective Data Vital Signs Vital Signs: Vital Signs - 24 hr 12/05/24 08:54 12/05/24 10:00 12/05/24 11:42 Temperature 98.2 F Pulse Rate 82 63 80 Respiratory Rate 20 Blood Pressure 165/85 H Pulse Oximetry 98 Oxygen Delivery 12/05/24 12:00 12/05/24 12:00 12/05/24 14:00 Temperature Pulse Rate 80 71 72 Respiratory Rate 20 Blood Pressure Pulse Oximetry 98 Oxygen Delivery Room Air 12/05/24 15:50 12/05/24 15:56 12/05/24 20:00 Temperature 98.9 F 98 F Pulse Rate 82 81 85 Respiratory Rate 16 18 Blood Pressure 137/75 161/87 H Pulse Oximetry 95 97 Oxygen Delivery 12/05/24 21:30 12/06/24 04:00 12/06/24 06:00 Temperature 97.6 F Pulse Rate 85 88 87 Respiratory Rate 18 Blood Pressure 156/91 H Pulse Oximetry 94 Oxygen Delivery Intake/Output Intake/Output: Intake & Output 12/03/24 12/04/24 12/05/24 12/06/24 23:59 23:59 23:59 23:59 Intake Total 2750 2650 Output Total 125 1650 1999 Balance 2625 1000 -1999 Meds/Results Medications: Active Medications Generic Name Dose Route Start Last Admin Trade Name Freq PRN Reason Stop Dose Admin Enoxaparin Sodium 40 mg 12/05/24 09:00 12/05/24 08:54 Enoxaparin 40 Mg/0.4 Ml Syringe SUB-Q 40 mg DAILY KATHRYN Administration Famotidine 20 mg 12/04/24 21:00 12/05/24 21:32 Famotidine 20 Mg/2 Ml Vial IV PUSH 20 mg Q12HR KATHRYN Administration Hydralazine HCl 10 mg 12/04/24 20:27 Hydralazine Hcl 20 Mg/Ml Vial IV PUSH Q6H PRN SBP > 165 or DBP > 105 Hydromorphone HCl 1 mg 12/04/24 19:00 12/05/24 15:51 Hydromorphone Hcl Inj (*Crx) 1 Mg/Ml Syr IV PUSH 1 mg Q2H PRN Administration Breakthrough Pain Rated 7-10 or NPO Hydromorphone HCl 0.5 mg 12/04/24 19:00 12/05/24 00:46 Hydromorphone Hcl Inj (*Crx) 1 Mg/Ml Syr IV PUSH 0.5 mg Q2H PRN Administration Breakthrough Pain Rated 4-6 or NPO Lactated Ringer's 1,000 mls @ 100 mls/hr 12/04/24 19:00 12/05/24 21:30 Lr - Lactated Ringers Iv IV CONT 100 mls/hr .Q10H KATHRYN Administration Ibuprofen 800 mg in 200 mls @ 400 mls/hr 12/04/24 19:00 12/05/24 14:22 Caldolor 800 Mg/200 Ml IVPB Infused Q6H PRN Infusion Breakthrough Pain Rated 1-3 or NPO Cefepime HCl 2 gm in 50 mls @ 100 mls/hr 12/05/24 00:00 12/06/24 01:29 Maxipime 2 Gm/Ns 50 Ml IVPB 100 mls/hr Q8H KATHRYN Administration Metronidazole 500 mg in 100 mls @ 100 mls/hr 12/05/24 00:00 12/06/24 02:00 Flagyl 500 Mg/Iso Soln 100 Ml IVPB 100 mls/hr Q8H KATHRYN Administration Metoprolol Tartrate 5 mg 12/04/24 21:00 12/06/24 04:00 Metoprolol Tartrate Inj 5 Mg/5 Ml Vial IV PUSH 5 mg Q6H KATHRYN Administration Naloxone HCl 0.1 mg 12/04/24 19:00 Naloxone Hcl 0.4 Mg/Ml Vial IV PUSH Q2M PRN Opiate Reversal Ondansetron HCl 4 mg 12/04/24 19:00 Ondansetron Inj 4 Mg/2 Ml Vial IV PUSH Q4H PRN Nausea And Vomiting Radiology Results: ITS Impressions Abdomen/Pelvis CT 12/04/24 14:38 IMPRESSION: Findings consistent with high-grade small bowel obstruction with hazy opacification of the surrounding mesentery suggesting bowel ischemia, as detaile d above. Urgent surgical consultation is recommended. ADDENDUM: 12/04/24 145 Findings and recommendations discussed with Dr. Tucker at 2:45 PM on 12/04/2024 Abdomen X-Ray 12/04/24 16:10 IMPRESSION: Nasogastric tube in good position and ready for immediate use. Hospitalist [facility] Advance Care Plan I have confirmed that the patient's Advanced Care Plan is present, code status is documented, or surrogate decision maker is listed in patient medical record.: Yes Medication Reconciliation I have utilized all available resources to obtain, update and review the patients current medications (includes all prescriptions, OTC, herbals, cannabis, and nutritional supplements).: Yes
[2024-12-06] MEDS: ENOXAPARIN 40 MG/0.4 ML SYRINGE SUB-Q (08:54)
[2024-12-06] MEDS: FAMOTIDINE 20 MG/2 ML VIAL IV PUSH ×2 (08:55→20:59)
[2024-12-06] MEDS: HYDROmorphone HCL INJ (*CRX) 1 MG/ML SYR IV PUSH ×2 (08:56→17:06)
[2024-12-06] MEDS: LACTATED RINGERS 1,000 ML 100 ML IV CONT ×2 (08:57→19:00)
--- NOTE | 2024-12-06 14:45 | PM.PNGS ---
Progress Note: A&P Assessment and Plan (1) Small bowel obstruction: Code(s): K56.609 - Unspecified intestinal obstruction, unspecified as to partial versus complete obstruction Status: Acute Assessment and Plan: cont routine postop care, will lu[place] NG, encourage OOB/IS Subjective Subjective Date/Time Seen: 12/06/24 14:45 Interval history: still c significant incisional pain Review of Systems Review of Systems: All systems reviewed & are unremarkable except as noted in HPI and below Exam Const: General: cooperative, comfortable and no acute distress Resp: Auscultation: clear to auscultation bilaterally Cardio: Rate: regular rate Rhythm: regular rhythm GI: Inspection: normal to inspection, distended and incision GI Palp: Yes abdominal tenderness and Yes Soft to palpation Objective Data Vital Signs Vital Signs: Vital Signs - 24 hr 12/05/24 15:50 12/05/24 15:56 12/05/24 20:00 Temperature 37.2 C 36.6 C Pulse Rate 82 81 85 Respiratory Rate 16 18 Blood Pressure 137/75 161/87 H Pulse Oximetry 95 97 Oxygen Delivery 12/05/24 21:30 12/06/24 04:00 12/06/24 06:00 Temperature 36.4 C Pulse Rate 85 88 87 Respiratory Rate 18 Blood Pressure 156/91 H Pulse Oximetry 94 Oxygen Delivery 12/06/24 08:54 12/06/24 08:56 12/06/24 14:00 Temperature 36.7 C Pulse Rate 84 89 Respiratory Rate 18 Blood Pressure 113/48 L Pulse Oximetry 100 Oxygen Delivery Room Air Intake/Output Intake/Output: Intake & Output 12/03/24 12/04/24 12/05/24 12/06/24 23:59 23:59 23:59 23:59 Intake Total 2750 2650 1000 Output Total 125 1650 2000 Balance 2625 1000 -1000 Meds/Results Medications: Active Medications Generic Name Dose Route Start Last Admin Trade Name Freq PRN Reason Stop Dose Admin Enoxaparin Sodium 40 mg 12/05/24 09:00 12/06/24 08:54 Enoxaparin 40 Mg/0.4 Ml Syringe SUB-Q 40 mg DAILY KATHRYN Administration Famotidine 20 mg 12/04/24 21:00 12/06/24 08:55 Famotidine 20 Mg/2 Ml Vial IV PUSH 20 mg Q12HR KATHRYN Administration Hydralazine HCl 10 mg 12/04/24 20:27 Hydralazine Hcl 20 Mg/Ml Vial IV PUSH Q6H PRN SBP > 165 or DBP > 105 Hydromorphone HCl 1 mg 12/04/24 19:00 12/06/24 08:56 Hydromorphone Hcl Inj (*Crx) 1 Mg/Ml Syr IV PUSH 1 mg Q2H PRN Administration Breakthrough Pain Rated 7-10 or NPO Hydromorphone HCl 0.5 mg 12/04/24 19:00 12/05/24 00:46 Hydromorphone Hcl Inj (*Crx) 1 Mg/Ml Syr IV PUSH 0.5 mg Q2H PRN Administration Breakthrough Pain Rated 4-6 or NPO Lactated Ringer's 1,000 mls @ 100 mls/hr 12/04/24 19:00 12/06/24 08:57 Lr - Lactated Ringers Iv IV CONT 100 mls/hr .Q10H KATHRYN Administration Ibuprofen 800 mg in 200 mls @ 400 mls/hr 12/04/24 19:00 12/05/24 14:22 Caldolor 800 Mg/200 Ml IVPB Infused Q6H PRN Infusion Breakthrough Pain Rated 1-3 or NPO Cefepime HCl 2 gm in 50 mls @ 100 mls/hr 12/05/24 00:00 12/06/24 01:29 Maxipime 2 Gm/Ns 50 Ml IVPB 100 mls/hr Q8H KATHRYN Administration Metronidazole 500 mg in 100 mls @ 100 mls/hr 12/05/24 00:00 12/06/24 02:00 Flagyl 500 Mg/Iso Soln 100 Ml IVPB 100 mls/hr Q8H KATHRYN Administration Metoprolol Tartrate 5 mg 12/04/24 21:00 12/06/24 08:54 Metoprolol Tartrate Inj 5 Mg/5 Ml Vial IV PUSH 5 mg Q6H KATHRYN Administration Naloxone HCl 0.1 mg 12/04/24 19:00 Naloxone Hcl 0.4 Mg/Ml Vial IV PUSH Q2M PRN Opiate Reversal Ondansetron HCl 4 mg 12/04/24 19:00 Ondansetron Inj 4 Mg/2 Ml Vial IV PUSH Q4H PRN Nausea And Vomiting Zolpidem Tartrate 5 mg 12/06/24 13:51 Zolpidem Tartrate (*Crx) 5 Mg Tablet PO HS PRN Insomnia Radiology Results: ITS Impressions Abdomen/Pelvis CT 12/04/24 14:38 IMPRESSION: Findings consistent with high-grade small bowel obstruction with hazy opacification of the surrounding mesentery suggesting bowel ischemia, as detailed above. Urgent surgical consultation is recommended. ADDENDUM: 12/04/24 1451 Findings and recommendations discussed with Dr. Tucker at 2:45 PM on 12/04/2024 Abdomen X-Ray 12/04/24 16:10 IMPRESSION: Nasogastric tube in good position and ready for immediate use.
[2024-12-07] VITALS (7 sets, daily range): BP systolic 150–167; BP diastolic 84–99; PULSE 68–82; RESP 14–18; TEMP 36.4–37.2; O2SAT 92–98
[2024-12-07] MEDS: metroNIDAZOLE 500 MG/ISO 100ML 500 MG/100 ML BAG 100 MG IVPB ×2 (00:01→08:25)
[2024-12-07] MEDS: CEFEPIME 2 GM/NS 50 ML 2 GM/50 ML BAG IVPB ×2 (00:01→07:35)
[2024-12-07] MEDS: ZOLPIDEM TARTRATE (*CRX) 5 MG TABLET PO ×2 (00:01→22:22)
[2024-12-07] MEDS: METOPROLOL TARTRATE INJ 5 MG/5 ML VIAL IV PUSH ×4 (03:44→20:18)
--- NOTE | 2024-12-07 05:55 | PCRCNOTE ---
patient does not use a home cpap unit; pt refused use of hospital unit
[2024-12-07] MEDS: LACTATED RINGERS 1,000 ML 100 ML IV CONT ×2 (07:34→21:31)
[2024-12-07] MEDS: HYDROmorphone HCL INJ (*CRX) 1 MG/ML SYR IV PUSH ×3 (07:35→20:14)
[2024-12-07] MEDS: FAMOTIDINE 20 MG/2 ML VIAL IV PUSH ×2 (08:26→20:14)
[2024-12-07] MEDS: ENOXAPARIN 40 MG/0.4 ML SYRINGE SUB-Q (08:26)
--- NOTE | 2024-12-07 09:23 | P.PNIM_ITS ---
Progress Note: A&P Assessment and Plan (1) Small bowel obstruction: Code(s): K56.609 - Unspecified intestinal obstruction, unspecified as to partial versus complete obstruction Status: Acute Assessment and Plan: CT scan showed finding consistent with high-grade small bowel ischemia and findings suggestive of bowel ischemia. * Status post exploratory laparotomy with adhesiolysis without ischemia following decompression. * Wound care, diet, pain control, and DVT prophylaxis deferred to Surgical Service. (2) Hypertension: Code(s): I10 - Essential (primary) hypertension Status: Acute Assessment and Plan: Blood pressures were reviewed and they have been running a bit high, likely due to pain missed medications this morning. * Currently n.p.o. with ice chips only. * Hopefully we can resume antihypertensives tomorrow. * P.r.n. hydralazine and Lopressor as needed. (3) Coronary artery disease: Code(s): I25.10 - Atherosclerotic heart disease of [place] coronary artery without angina pectoris Status: Acute Assessment and Plan: History of [place] x2 and stents x3 in July 2021. * No acute or recent issues. * Resume clopidogrel when okay with primary service. (4) Obstructive sleep apnea on CPAP: Code(s): G47.33 - Obstructive sleep apnea (adult) (pediatric) Status: Acute Assessment and Plan: CPAP will be provided for the patient to use while hospitalized. Subjective Date/time seen: 12/07/24 09:23 Interval history: Patient is still NPO. Ordered CBC, CMP, magnesium and phosphorus. Review of Systems Review of Systems: 12 systems were reviewed and are negativ e except for as per HPI. Exam Narrative: General: Nontoxic-appearing gentleman sitting up in bed in moderate pain. Weight: 76 kg. BMI: 22.1. HEENT: PERRL, EOMI. Sclera anicteric. Tacky mucous membranes. NG tube in the left naris draining opaque fluid with scattered mcgowan particulate matter. Neck: Supple. Respiratory: Lungs are clear to auscultation bilaterally. Cardiovascular: Regular rate and rhythm with S1-S2. Gastrointestinal: Abdomen is soft and slightly distended with hypoactive bowel sounds. He is tender to palpation throughout the periumbilical region without voluntary guarding or rebound tenderness. Skin: Warm and dry. Generalized pallor. Extremities: No cyanosis, clubbing, or edema. Radial and pedal pulses intact. Neurological: Alert. Cranial nerves 2-12 are grossly intact. No gross focal deficits to casual conversation. Psychiatric: Pleasant and cooperative with normal mood and affect. Judgment and insight intact. Objective Data Vital Signs Vital Signs: Vital Signs - 24 hr 12/06/24 14:00 12/06/24 17:06 12/06/24 20:57 Temperature 98.1 F Pulse Rate 89 64 80 Respiratory Rate 18 Blood Pressure 113/48 L Pulse Oximetry 100 Oxygen Delivery 12/06/24 22:00 12/06/24 22:55 12/07/24 03:44 Temperature 98.6 F Pulse Rate 73 76 Respiratory Rate 18 Blood Pressure 143/90 H Pulse Oximetry 96 97 Oxygen Delivery Room Air 12/07/24 06:00 12/07/24 08:27 12/07/24 08:31 Temperature 97.7 F Pulse Rate 68 80 Respiratory Rate 18 Blood Pressure 167/87 H 153/99 H Pulse Oximetry 98 Oxygen Delivery Intake/Output Intake/Output: Intake & Output 12/04/24 12/05/24 12/06/24 12/07/24 23:59 23:59 23:59 23:59 Intake Total 2750 2650 2300 2250 Output Total 125 1650 3700 Balance 2625 1000 -1400 2250 Meds/Results Medications: Active Medications Generic Name Dose Route Start Last Admin Trade Name Freq PRN Reason Stop Dose Admin Enoxaparin Sodium 40 mg 12/05/24 09:00 12/07/24 08:26 Enoxaparin 40 Mg/0.4 Ml Syringe SUB-Q 40 mg DAILY KATHRYN Administration Famotidine 20 mg 12/04/24 21:00 12/07/24 08:26 Famotidine 20 Mg/2 Ml Vial IV PUSH 20 mg Q12HR KATHRYN Administration Hydralazine HCl 10 mg 12/04/24 20:27 Hydralazine Hcl 20 Mg/Ml Vial IV PUSH Q6H PRN SBP > 165 or DBP > 105 Hydromorphone HCl 1 mg 12/04/24 19:00 12/07/24 07:35 Hydromorphone Hcl Inj (*Crx) 1 Mg/Ml Syr IV PUSH 1 mg Q2H PRN Administration Breakthrough Pain Rated 7-10 or NPO Hydromorphone HCl 0.5 mg 12/04/24 19:00 12/05/24 00:46 Hydromorphone Hcl Inj (*Crx) 1 Mg/Ml Syr IV PUSH 0.5 mg Q2H PRN Administration Breakthrough Pain Rated 4-6 or NPO Lactated Ringer's 1,000 mls @ 100 mls/hr 12/04/24 19:00 12/07/24 07:34 Lr - Lactated Ringers Iv IV CONT 100 mls/hr .Q10H KATHRYN Administration Ibuprofen 800 mg in 200 mls @ 400 mls/hr 12/04/24 19:00 12/05/24 14:22 Caldolor 800 Mg/200 Ml IVPB Infused Q6H PRN Infusion Breakthrough Pain Rated 1-3 or NPO Cefepime HCl 2 gm in 50 mls @ 100 mls/hr 12/05/24 00:00 12/07/24 07:35 Maxipime 2 Gm/Ns 50 Ml IVPB 100 mls/hr Q8H KATHRYN Administration Metronidazole 500 mg in 100 mls @ 100 mls/hr 12/05/24 00:00 12/07/24 08:25 Flagyl 500 Mg/Iso Soln 100 Ml IVPB 100 mls/hr Q8H KATHRYN Administration Metoprolol Tartrate 5 mg 12/04/24 21:00 12/07/24 08:27 Metoprolol Tartrate Inj 5 Mg/5 Ml Vial IV PUSH 5 mg Q6H KATHRYN Administration Naloxone HCl 0.1 mg 12/04/24 19:00 Naloxone Hcl 0.4 Mg/Ml Vial IV PUSH Q2M PRN Opiate Reversal Ondansetron HCl 4 mg 12/04/24 19:00 Ondansetron Inj 4 Mg/2 Ml Vial IV PUSH Q4H PRN Nausea And Vomiting Zolpidem Tartrate 5 mg 12/06/24 13:51 12/07/24 00:01 Zolpidem Tartrate (*Crx) 5 Mg Tablet PO 5 mg HS PRN Administration Insomnia Radiology Results: ITS Impressions Abdomen/Pelvis CT 12/04/24 14:38 IMPRESSION: Findings consistent with high-grade small bowel obstruction with hazy opacification of the surrounding mesentery suggesting bowel ischemia, as detailed above. Urgent surgical consultation is recommended. ADDENDUM: 12/04/24 1451 Findings and recommendations discussed with Dr. Tucker at 2:45 PM on 12/04/2024 Abdomen X-Ray 12/04/24 16:10 IMPRESSION: Nasogastric tube in good position and ready for immediate use. Hospitalist [facility] Advance Care Plan I have confirmed that the patient's Advanced Care Plan is present, code status is documented, or surrogate decision maker is listed in patient medical record.: Yes Medication Reconciliation I have utilized all available resources to obtain, update and review the patients current medications (includes all prescriptions, OTC, herbals, cannabis, and nutritional supplements).: Yes
[2024-12-07 10:10] LABS: Hematocrit 36.6 % (42.0-52.0); Hemoglobin 11.9 g/dL (14.0-18.0); Mean Corpuscular HGB Conc 32.5 g/dl (32-36); Mean Corpuscular Hemoglobin 31.6 pg (26-34); Mean Corpuscular Volume 97.3 fl (80-100); Platelet Count Result 144 k/mm3 (150-375); Red Blood Count 3.76 M/mm3 (4.6-6.20); Red Cell Distribution Width 12.2 % (11.5-14.5); White Blood Count 5.9 K/mm3 (4.5-10.0)
[2024-12-07 10:33] LABS: Alanine Aminotransferase 19 U/L (6-50); Albumin Level 3.5 g/dL (3.5-5.1); Alkaline Phosphatase 64 U/L (38-126); Anion Gap 8 mmol/L (4-12); Aspartate Amino Transferase 21 U/L (17-59); Bilirubin,Total 1.1 mg/dL (0.2-1.3); Blood Urea Nitrogen 10 mg/dL (9-20); Calcium 8.6 mg/dL (8.4-10.2); Carbon Dioxide 26 mmol/L (22-30); Chloride 102 mmol/L (98-107); Estimated CRCL calculation 118 ml/min; Estimated Glomerular Filt Rate > 60; Glucose 86 mg/dL (65-110); Magnesium 1.9 mg/dL (1.6-2.3); Phosphorus 2.8 mg/dL (2.5-4.5); Potassium 4.2 mmol/L (3.4-5.0); Sodium 136 mmol/L (137-145)
--- NOTE | 2024-12-07 12:14 | PM.PNGS ---
Progress Note: A&P Assessment and Plan (1) Small bowel obstruction: Code(s): K56.609 - Unspecified intestinal obstruction, unspecified as to partial versus complete obstruction Status: Acute Assessment and Plan: doing well, ADAT, await ROBF, OOB/IS, home soon Subjective Subjective Date/Time Seen: 12/07/24 12:14 Interval history: feels better, some mild incisional soreness, +flatus, ran ice chips Review of Systems Review of Systems: All systems reviewed & are unremarkable except as noted in HPI and below Exam Const: General: cooperative, comfortable and no acute distress Resp: Auscultation: clear to auscultation bilaterally Cardio: Rate: regular rate Rhythm: regular rhythm GI: Inspection: normal to inspection and incision GI Palp: Yes abdominal tenderness, Yes Soft to palpation and Yes Tenderness to palpation present (GI) Other: incision C/D/I Objective Data Vital Signs Vital Signs: Vital Signs - 24 hr 12/06/24 14:00 12/06/24 17:06 12/06/24 20:57 Temperature 36.7 C Pulse Rate 89 64 80 Respiratory Rate 18 Blood Pressure 113/48 L Pulse Oximetry 100 Oxygen Delivery 12/06/24 22:00 12/06/24 22:55 12/07/24 03:44 Temperature 37.0 C Pulse Rate 73 76 Respiratory Rate 18 Blood Pressure 143/90 H Pulse Oximetry 96 97 Oxygen Delivery Room Air 12/07/24 06:00 12/07/24 08:00 12/07/24 08:27 Temperature 36.5 C Pulse Rate 68 80 Respiratory Rate 18 Blood Pressure 167/87 H Pulse Oximetry 98 Oxygen Delivery Room Air 12/07/24 08:31 Temperature Pulse Rate Respiratory Rate Blood Pressure 153/99 H Pulse Oximetry Oxygen Delivery Intake/Output Intake/Output: Intake & Output 12/04/24 12/05/24 12/06/24 12/07/24 23:59 23:59 23:59 23:59 Intake Total 2750 2650 2300 2250 Output Total 125 1650 3700 Balance 2625 1000 -1400 2250 Meds/Results Medications: Active Medications Generic Name Dose Route Start Last Admin Trade Name Freq PRN Reason Stop Dose Admin Enoxaparin Sodium 40 mg 12/05/24 09:00 12/07/24 08:26 Enoxaparin 40 Mg/0.4 Ml Syringe SUB-Q 40 mg DAILY KATHRYN Administration Famotidine 20 mg 12/04/24 21:00 12/07/24 08:26 Famotidine 20 Mg/2 Ml Vial IV PUSH 20 mg Q12HR KATHRYN Administration Hydralazine HCl 10 mg 12/04/24 20:27 Hydralazine Hcl 20 Mg/Ml Vial IV PUSH Q6H PRN SBP > 165 or DBP > 105 Hydromorphone HCl 1 mg 12/04/24 19:00 12/07/24 07:35 Hydromorphone Hcl Inj (*Crx) 1 Mg/Ml Syr IV PUSH 1 mg Q2H PRN Administration Breakthrough Pain Rated 7-10 or NPO Hydromorphone HCl 0.5 mg 12/04/24 19:00 12/05/24 00:46 Hydromorphone Hcl Inj (*Crx) 1 Mg/Ml Syr IV PUSH 0.5 mg Q2H PRN Administration Breakthrough Pain Rated 4-6 or NPO Lactated Ringer's 1,000 mls @ 100 mls/hr 12/04/24 19:00 12/07/24 07:34 Lr - Lactated Ringers Iv IV CONT 100 mls/hr .Q10H KATHRYN Administration Ibuprofen 800 mg in 200 mls @ 400 mls/hr 12/04/24 19:00 12/05/24 14:22 Caldolor 800 Mg/200 Ml IVPB Infused Q6H PRN Infusion Breakthrough Pain Rated 1-3 or NPO Cefepime HCl 2 gm in 50 mls @ 100 mls/hr 12/05/24 00:00 12/07/24 07:35 Maxipime 2 Gm/Ns 50 Ml IVPB 100 mls/hr Q8H KATHRYN Administration Metronidazole 500 mg in 100 mls @ 100 mls/hr 12/05/24 00:00 12/07/24 08:25 Flagyl 500 Mg/Iso Soln 100 Ml IVPB 100 mls/hr Q8H KATHRYN Administration Metoprolol Tartrate 5 mg 12/04/24 21:00 12/07/24 08:27 Metoprolol Tartrate Inj 5 Mg/5 Ml Vial IV PUSH 5 mg Q6H KATHRYN Administration Naloxone HCl 0.1 mg 12/04/24 19:00 Naloxone Hcl 0.4 Mg/Ml Vial IV PUSH Q2M PRN Opiate Reversal Ondansetron HCl 4 mg 12/04/24 19:00 Ondansetron Inj 4 Mg/2 Ml Vial IV PUSH Q4H PRN Nausea And Vomiting Zolpidem Tartrate 5 mg 12/06/24 13:51 12/07/24 00:01 Zolpidem Tartrate (*Crx) 5 Mg Tablet PO 5 mg HS PRN Administration Insomnia Radiology Results: ITS Impressions Abdomen/Pelvis CT 12/04/24 14:38 IMPRESSION: Findings consistent with high-grade small bowel obstruction with hazy opacification of the surrounding mesentery suggesting bowel ischemia, as detailed above. Urgent surgical consultation is recommended. ADDENDUM: 12/04/24 1451 Findings and recommendations discussed with Dr. Tucker at 2:45 PM on 12/04/2024 Abdomen X-Ray 12/04/24 16:10 IMPRESSION: Nasogastric tube in good position and ready for immediate use. Labs Labs: Laboratory Results - last 24 hr 12/07/24 10:04 WBC 5.9 RBC 3.76 L Hgb 11.9 L Hct 36.6 L MCV 97.3 MCH 31.6 MCHC 32.5 RDW 12.2 Plt Count 144 L MPV 11.0 H Sodium 136 L Potassium 4.2 Chloride 102 Carbon Dioxide 26 Anion Gap 8 BUN 10 Creatinine 0.61 L Estim Creat Clear Calc 118 Estimated GFR > 60 Glucose 86 Calcium 8.6 Phosphorus 2.8 Magnesium 1.9 Total Bilirubin 1.1 AST 21 ALT 19 Alkaline Phosphatase 64 Total Protein 6.0 L Albumin 3.5
[2024-12-07] MEDS: ONDANSETRON INJ 4 MG/2 ML VIAL IV PUSH (20:14)
[2024-12-08] VITALS (7 sets, daily range): BP systolic 150–159; BP diastolic 77–103; PULSE 65–78; RESP 15–16; TEMP 36.5–36.9; O2SAT 97–98
[2024-12-08] MEDS: METOPROLOL TARTRATE INJ 5 MG/5 ML VIAL IV PUSH ×3 (02:50→14:14)
--- NOTE | 2024-12-08 08:07 | PM.IMPN ---
Progress Note: A&P Assessment and Plan (1) Small bowel obstruction: Code(s): K56.609 - Unspecified intestinal obstruction, unspecified as to partial versus complete obstruction Status: Acute Assessment and Plan: CT scan showed finding consistent with high-grade small bowel ischemia and findings suggestive of bowel ischemia. Status post exploratory laparotomy with adhesiolysis without ischemia following decompression. Wound care, diet, pain control, and DVT prophylaxis deferred to Surgical Service. (2) Hypertension: Code(s): I10 - Essential (primary) hypertension Status: Acute Assessment and Plan: Blood pressures were reviewed and they have been running a bit high, likely due to pain missed medications this morning. Currently n.p.o. with ice chips only. Hopefully we can resume antihypertensives tomorrow. P.r.n. hydralazine and Lopressor as needed. (3) Coronary artery disease: Code(s): I25.10 - Atherosclerotic heart disease of [place] coronary artery without angina pectoris Status: Acute Assessment and Plan: History of [place] x2 and stents x3 in July 2021. No acute or recent issues. Resume clopidogrel when okay with primary service. (4) Obstructive sleep apnea on CPAP: Code(s): G47.33 - Obstructive sleep apnea (adult) (pediatric) Status: Acute Assessment and Plan: CPAP will be provided for the patient to use while hospitalized. Subjective Date/time seen: 12/08/24 08:07 Interval history: Passing flatus. Currently on clear liquid diet. Antibiotics according to surgery team. Review of Systems Review of Systems: 12 systems were reviewed and are negative except for as per HPI. Exam Narrative: General: Nontoxic-appearing gentleman sitting up in bed in moderate pain. Weight: 76 kg. BMI: 22.1. HEENT: PERRL, EOMI. Sclera anicteric. Tacky mucous membranes. NG tube in the left naris draining opaque fluid with scattered mcgowan particulate matter. Neck: Supple. Respiratory: Lungs are clear to auscultation bilaterally. Cardiovascular: Regular rate and rhythm with S1-S2. Gastrointestinal: Abdomen is soft and slightly distended with hypoactive bowel sounds. He is tender to palpation throughout the periumbilical region without voluntary guarding or rebound tenderness. Skin: Warm and dry. Generalized pallor. Extremities: No cyanosis, clubbing, or edema. Radial and pedal pulses intact. Neurological: Alert. Cranial nerves 2-12 are grossly intact. No gross focal deficits to casual conversation. Psychiatric: Pleasant and cooperative with normal mood and affect. Judgment and insight intact. Objective Data Vital Signs Vital Signs: Vital Signs - 24 hr 12/07/24 08:27 12/07/24 08:31 12/07/24 14:00 Temperature 97.5 F L Pulse Rate 80 70 Respiratory Rate 14 Blood Pressure 153/99 H 150/84 H Pulse Oximetry 92 Oxygen Delivery 12/07/24 15:22 12/07/24 20:00 12/07/24 21:08 Temperature 98.9 F Pulse Rate 72 82 Respiratory Rate 18 Blood Pressure 155/95 H Pulse Oximetry 98 Oxygen Delivery Room Air 12/08/24 02:50 12/08/24 05:38 Temperature 98.0 F Pulse Rate 67 65 Respiratory Rate 16 Blood Pressure 150/77 H Pulse Oximetry 97 Oxygen Delivery Intake/Output Intake/Output: Intake & Output 12/05/24 12/06/24 12/07/24 12/08/24 23:59 23:59 23:59 23:59 Intake Total 2650 2300 3310 400 Output Total 1650 3700 Balance 1000 -1400 3310 400 Meds/Results Medications: Active Medications Generic Name Dose Route Start Last Admin Trade Name Freq PRN Reason Stop Dose Admin Enoxaparin Sodium 40 mg 12/05/24 09:00 12/07/24 08:26 Enoxaparin 40 Mg/0.4 Ml Syringe SUB-Q 40 mg DAILY KATHRYN Administration Famotidine 20 mg 12/04/24 21:00 12/07/24 20:14 Famotidine 20 Mg/2 Ml Vial IV PUSH 20 mg Q12HR KATHRYN Administration Hydralazine HCl 10 mg 12/04/24 20:27 Hydralazine Hcl 20 Mg/Ml Vial IV PUSH Q6H PRN SBP > 165 or DBP > 105 Hydromorphone HCl 1 mg 12/04/24 19:00 12/07/24 20:14 Hydromorphone Hcl Inj (*Crx) 1 Mg/Ml Syr IV PUSH 1 mg Q2H PRN Administration Breakthrough Pain Rated 7-10 or NPO Hydromorphone HCl 0.5 mg 12/04/24 19:00 12/05/24 00:46 Hydromorphone Hcl Inj (*Crx) 1 Mg/Ml Syr IV PUSH 0.5 mg Q2H PRN Administration Breakthrough Pain Rated 4-6 or NPO Lactated Ringer's 1,000 mls @ 100 mls/hr 12/04/24 19:00 12/07/24 21:31 Lr - Lactated Ringers Iv IV CONT 100 mls/hr .Q10H KATHRYN Administration Ibuprofen 800 mg in 200 mls @ 400 mls/hr 12/04/24 19:00 12/05/24 14:22 Caldolor 800 Mg/200 Ml IVPB Infused Q6H PRN Infusion Breakthrough Pain Rated 1-3 or NPO Metoprolol Tartrate 5 mg 12/04/24 21:00 12/08/24 02:50 Metoprolol Tartrate Inj 5 Mg/5 Ml Vial IV PUSH 5 mg Q6H KATHRYN Administration Naloxone HCl 0.1 mg 12/04/24 19:00 Naloxone Hcl 0.4 Mg/Ml Vial IV PUSH Q2M PRN Opiate Reversal Ondansetron HCl 4 mg 12/04/24 19:00 12/07/24 20:14 Ondansetron Inj 4 Mg/2 Ml Vial IV PUSH 4 mg Q4H PRN Administration Nausea And Vomiting Zolpidem Tartrate 5 mg 12/06/24 13:51 12/07/24 22:22 Zolpidem Tartrate (*Crx) 5 Mg Tablet PO 5 mg HS PRN Administration Insomnia Radiology Results: ITS Impressions Abdomen/Pelvis CT 12/04/24 14:38 IMPRESSION: Findings consistent with high-grade small bowel obstruction with hazy opacification of the surrounding mesentery suggesting bowel ischemia, as detailed above. Urgent surgical consultation is recommended. ADDENDUM: 12/04/24 1452 Findings and recommendations discussed with Dr. Tucker at 2:45 PM on 12/04/2024 Abdomen X-Ray 12/04/24 16:10 IMPRESSION: Nasogastric tube in good position and ready for immediate use. Labs Labs: Laboratory Results - last 24 hr 12/07/24 10:04 WBC 5.9 RBC 3.76 L Hgb 11.9 L Hct 36.6 L MCV 97.3 MCH 31.6 MCHC 32.5 RDW 12.2 Plt Count 144 L MPV 11.0 H Sodium 136 L Potassium 4.2 Chloride 102 Carbon Dioxide 26 Anion Gap 8 BUN 10 Creatinine 0.61 L Estim Creat Clear Calc 118 Estimated GFR > 60 Glucose 86 Calcium 8.6 Phosphorus 2.8 Magnesium 1.9 Total Bilirubin 1.1 AST 21 ALT 19 Alkaline Phosphatase 64 Total Protein 6.0 L Albumin 3.5 Hospitalist [facility] Advance Care Plan I have confirmed that the patient's Advanced Care Plan is present, code status is documented, or surrogate decision maker is listed in patient medical record.: Yes Medication Reconciliation I have utilized all available resources to obtain, update and review the patients current medications (includes all prescriptions, OTC, herbals, cannabis, and nutritional supplements).: Yes
[2024-12-08 08:24] LABS: Hematocrit 35.5 % (42.0-52.0); Hemoglobin 11.9 g/dL (14.0-18.0); Mean Corpuscular HGB Conc 33.5 g/dl (32-36); Mean Corpuscular Hemoglobin 31.6 pg (26-34); Mean Corpuscular Volume 94.2 fl (80-100); Mean Platelet Volume 10.2 fl (7.4-10.4); Platelet Count Result 145 k/mm3 (150-375); Red Blood Count 3.77 M/mm3 (4.6-6.20); Red Cell Distribution Width 12.2 % (11.5-14.5); White Blood Count 4.1 K/mm3 (4.5-10.0)
[2024-12-08 08:51] LABS: Alanine Aminotransferase 20 U/L (6-50); Albumin Level 3.2 g/dL (3.5-5.1); Alkaline Phosphatase 64 U/L (38-126); Anion Gap 8 mmol/L (4-12); Aspartate Amino Transferase 24 U/L (17-59); Bilirubin,Total 0.9 mg/dL (0.2-1.3); Blood Urea Nitrogen 8 mg/dL (9-20); Calcium 8.6 mg/dL (8.4-10.2); Carbon Dioxide 28 mmol/L (22-30); Chloride 103 mmol/L (98-107); Estimated CRCL calculation 99 ml/min; Estimated Glomerular Filt Rate > 60; Glucose 103 mg/dL (65-110); Potassium 3.9 mmol/L (3.4-5.0); Sodium 139 mmol/L (137-145)
[2024-12-08] MEDS: ENOXAPARIN 40 MG/0.4 ML SYRINGE SUB-Q (09:30)
[2024-12-08] MEDS: FAMOTIDINE 20 MG/2 ML VIAL IV PUSH (09:31)
[2024-12-08] MEDS: LACTATED RINGERS 1,000 ML 100 ML IV CONT (10:19)
--- NOTE | 2024-12-08 10:39 | PCNFU ---
Nutrition Follow-Up Complete: Inadequate oral intake related to recent small bowel obstruction as evidenced by NPO Diet order - Advanced to clear liquids Improved PO intake when diet advanced - Still not progressing yet Goal: Pt current nutrition is Clear liquids. Nutrition recommendation: NPO/CL day 4. Consider short term PPN if not able to advance diet within 24 hours Last recorded weight is 72.3 kg. Bowel Motility: No bowel movements yet. +flatus Labs Reviewed: Hgb 11.9, Hct 35.5, Alb 3.2, BUN 8 Meds Noted: LR, pepcid, zofran Skin: No skin issues. Incision to abdomen Additional Notes: Advancing diet per surgery. Pt starting to feel better. Monitoring diet orders, output, labs, weights, plan of care Follow up in 3 days
[2024-12-08] MEDS: HYDROmorphone HCL INJ (*CRX) 2 MG/ML VIAL 1 MG IV PUSH (11:08)
--- NOTE | 2024-12-08 12:55 | PM.PNGS ---
Progress Note: A&P Assessment and Plan (1) Small bowel obstruction: Code(s): K56.609 - Unspecified intestinal obstruction, unspecified as to partial versus complete obstruction Status: Acute Assessment and Plan: POD4 and doing well. Await ROBF. Advance to full liquids. Stop IV fluids. Start transitioning to oral analgesics. Encouraged ambulating more and up to chair Plan I have discussed the patient's case and plan of care with Dr. Ray. Subjective Subjective Date/Time Seen: 12/08/24 12:55 Post Op day: 4 (exploratory laparotomy, adhesiolysis) Patient reports: feels better, voiding w/o difficulty, flatus, no bowel movement and afebrile Exam Const: General: comfortable and no acute distress Orientation/consciousness: patient oriented x3 GI: Inspection: non-distended and incision (dry and rajesh intact, no erythema or drainage) GI Palp: Yes Soft to palpation, Yes Tenderness to palpation present (GI) (incisional), No Guarding due to palpation present (GI) and No Rebound tenderness present Auscultation: normal bowel sounds Objective Data Vital Signs Vital Signs: Vital Signs - 24 hr 12/07/24 14:00 12/07/24 15:22 12/07/24 20:00 Temperature 97.5 F L Pulse Rate 70 72 Respiratory Rate 14 Blood Pressure 150/84 H Pulse Oximetry 92 Oxygen Delivery Room Air 12/07/24 21:08 12/08/24 02:50 12/08/24 05:38 Temperature 98.9 F 98.0 F Pulse Rate 82 67 65 Respiratory Rate 18 16 Blood Pressure 155/95 H 150/77 H Pulse Oximetry 98 97 Oxygen Delivery 12/08/24 09:32 Temperature Pulse Rate 78 Respiratory Rate Blood Pressure Pulse Oximetry Oxygen Delivery Intake/Output Intake/Output: Intake & Output 12/05/24 12/06/24 12/07/24 12/08/24 23:59 23:59 23:59 23:59 Intake Total 2650 2300 3310 1400 Output Total 1650 3700 Balance 1000 -1400 3310 1400 Meds/Results Medications: Active Medications Generic Name Dose Route Start Last Admin Trade Name Freq PRN Reason Stop Dose Admin Enoxaparin Sodium 40 mg 12/05/24 09:00 12/08/24 09:30 Enoxaparin 40 Mg/0.4 Ml Syringe SUB-Q 40 mg DAILY KATHRYN Administration Famotidine 20 mg 12/04/24 21:00 12/08/24 09:31 Famotidine 20 Mg/2 Ml Vial IV PUSH 20 mg Q12HR KATHRYN Administration Hydralazine HCl 10 mg 12/04/24 20:27 Hydralazine Hcl 20 Mg/Ml Vial IV PUSH Q6H PRN SBP > 165 or DBP > 105 Hydromorphone HCl 0.5 mg 12/04/24 19:00 12/05/24 00:46 Hydromorphone Hcl Inj (*Crx) 1 Mg/Ml Syr IV PUSH 0.5 mg Q2H PRN Administration Breakthrough Pain Rated 4-6 or NPO Hydromorphone HCl 1 mg 12/08/24 12:00 Hydromorphone Hcl Inj (*Crx) 1 Mg/Ml Syr IV PUSH Q2H PRN Breakthrough Pain Rated 7-10 or NPO Lactated Ringer's 1,000 mls @ 100 mls/hr 12/04/24 19:00 12/08/24 10:19 Lr - Lactated Ringers Iv IV CONT 100 mls/hr .Q10H KATHRYN Administration Ibuprofen 800 mg in 200 mls @ 400 mls/hr 12/04/24 19:00 12/05/24 14:22 Caldolor 800 Mg/200 Ml IVPB Infused Q6H PRN Infusion Breakthrough Pain Rated 1-3 or NPO Metoprolol Tartrate 5 mg 12/04/24 21:00 12/08/24 09:32 Metoprolol Tartrate Inj 5 Mg/5 Ml Vial IV PUSH 5 mg Q6H KATHRYN Administration Naloxone HCl 0.1 mg 12/04/24 19:00 Naloxone Hcl 0.4 Mg/Ml Vial IV PUSH Q2M PRN Opiate Reversal Ondansetron HCl 4 mg 12/04/24 19:00 12/07/24 20:14 Ondansetron Inj 4 Mg/2 Ml Vial IV PUSH 4 mg Q4H PRN Administration Nausea And Vomiting Zolpidem Tartrate 5 mg 12/06/24 13:51 12/07/24 22:22 Zolpidem Tartrate (*Crx) 5 Mg Tablet PO 5 mg HS PRN Administration Insomnia Radiology Results: ITS Impressions Abdomen/Pelvis CT 12/04/24 14:38 IMPRESSION: Findings consistent with high-grade small bowel obstruction with hazy opacification of the surrounding mesentery suggesting bowel ischemia, as detailed above. Urgent surgical consultation is recommended. ADDENDUM: 12/04/24 1450 Findings and recommendations discussed with Dr. Tucker at 2:45 PM on 12/04/2024 Abdomen X-Ray 12/04/24 16:10 IMPRESSION: Nasogastric tube in good position and ready for immediate use. Labs Labs: Laboratory Results - last 24 hr 12/08/24 08:13 WBC 4.1 L RBC 3.77 L Hgb 11.9 L Hct 35.5 L MCV 94.2 MCH 31.6 MCHC 33.5 RDW 12.2 Plt Count 145 L MPV 10.2 Sodium 139 Potassium 3.9 Chloride 103 Carbon Dioxide 28 Anion Gap 8 BUN 8 L Creatinine 0.70 Estim Creat Clear Calc 99 Estimated GFR > 60 Glucose 103 Calcium 8.6 Total Bilirubin 0.9 AST 24 ALT 20 Alkaline Phosphatase 64 Total Protein 6.0 L Albumin 3.2 L
[2024-12-08] MEDS: HYDROcodone/acetaminophen (*CRX) 5-325 MG TABLET 1 TAB PO ×2 (14:22→17:57)
[2024-12-08] MEDS: HYDROcodone/acetaminophen (*CRX) 10-325 MG TABLET 1 TAB PO (21:46)
[2024-12-08] MEDS: RANOLAZINE 500 MG TAB.ER.12H PO (21:50)
[2024-12-08] MEDS: ISOSORBIDE MONONITRATE 30 MG TAB.ER.24H PO (21:52)
[2024-12-08] MEDS: FAMOTIDINE 20 MG TABLET PO (21:53)
[2024-12-08] MEDS: LOSARTAN POTASSIUM 25 MG TABLET PO (21:53)
[2024-12-08] MEDS: MELATONIN 5 MG TABLET 20 MG PO (21:54)
[2024-12-08] MEDS: METOPROLOL TARTRATE 25 MG TABLET PO (21:55)
[2024-12-09] MEDS: ZOLPIDEM TARTRATE (*CRX) 5 MG TABLET PO ×2 (00:56→23:27)
[2024-12-09 05:40] VITALS: BP 115/72; PULSE 71; RESP 18; TEMP 36.7; O2SAT 95
[2024-12-09 06:17] LABS: Hematocrit 32.1 % (42.0-52.0); Hemoglobin 10.8 g/dL (14.0-18.0); Mean Corpuscular HGB Conc 33.6 g/dl (32-36); Mean Platelet Volume 10.3 fl (7.4-10.4); Platelet Count Result 158 k/mm3 (150-375); Red Blood Count 3.38 M/mm3 (4.6-6.20); Red Cell Distribution Width 12.4 % (11.5-14.5); White Blood Count 3.8 K/mm3 (4.5-10.0)
[2024-12-09 06:30] LABS: Alanine Aminotransferase 29 U/L (6-50); Alkaline Phosphatase 58 U/L (38-126); Anion Gap 4 mmol/L (4-12); Aspartate Amino Transferase 37 U/L (17-59); Bilirubin,Total 0.7 mg/dL (0.2-1.3); Blood Urea Nitrogen 7 mg/dL (9-20); Calcium 8.6 mg/dL (8.4-10.2); Carbon Dioxide 32 mmol/L (22-30); Chloride 104 mmol/L (98-107); Estimated CRCL calculation 89 ml/min; Estimated Glomerular Filt Rate > 60; Glucose 110 mg/dL (65-110); Potassium 3.8 mmol/L (3.4-5.0); Sodium 140 mmol/L (137-145)
[2024-12-09] MEDS: FAMOTIDINE 20 MG TABLET PO ×2 (09:34→21:28)
[2024-12-09] MEDS: ACETAMINOPHEN 325 MG TABLET 650 MG PO ×2 (09:46→23:27)
[2024-12-09 10:15] LABS: Immature Reticulocyte Fraction 25.9 % (3.0-15.9); Reticulocyte Hemoglobin Conten 33.2 pg (28.2-36.6); Reticulocyte Percent 1.79 % (0.7-4.3); Reticulocytes Absolute 0.06 10^6/uL (0.02-0.10)
[2024-12-09 10:26] LABS: Lactate Dehydrogenase 189 U/L (120-246)
[2024-12-09 10:33] LABS: Transferrin 161 mg/dL (206-381)
[2024-12-09 10:43] LABS: Iron 38 ug/dL (49-181)
[2024-12-09 10:53] LABS: Percent Iron Saturation 18 % (20-50)
[2024-12-09 11:33] LABS: Folic Acid 9.3 ng/mL (2.76->20)
--- NOTE | 2024-12-09 12:35 | PM.PNGS ---
Progress Note: A&P Assessment and Plan (1) Small bowel obstruction: Code(s): K56.609 - Unspecified intestinal obstruction, unspecified as to partial versus complete obstruction Status: Acute Assessment and Plan: POD5 and doing well. Incision healing well. Still has not had a bowel movement but is clinically improving and passing more flatus. Will advance to low fiber diet. Will order a Dulcolax suppository. Ambulating well and tolerating activity. Hopefully he can discharge home in the next 1-2 days if he continues to improve. Plan I have discussed the patient's case and plan of care with Dr. Trejo. Subjective Subjective Date/Time Seen: 12/09/24 12:35 Post Op day: 5 (exploratory laparotomy, lysis of adhesion) Patient reports: no new complaints, tolerating liquids well, voiding w/o difficulty, flatus, no bowel movement and afebrile Interval history: Patient tolerating activity and walking well in the room independently. He is tolerating full liquids. Passing more flatus, still no BM. He denies nausea or vomiting. Some incisional soreness that is well controlled. No longer requiring IV analgesics. Exam Const: General: comfortable and no acute distress Orientation/consciousness: patient oriented x3 GI: Inspection: non-distended and incision (dry and rajesh intact, no erythema or drainage) GI Palp: Yes Soft to palpation, No Tenderness to palpation present (GI), No Guarding due to palpation present (GI) and No Rebound tenderness present Auscultation: normal bowel sounds Extrem: General: no pedal edema and no calf tenderness Objective Data Vital Signs Vital Signs: Vital Signs - 24 hr 12/08/24 14:00 12/08/24 14:14 12/08/24 21:27 Temperature 97.7 F 98.5 F Pulse Rate 69 77 69 Respiratory Rate 15 16 Blood Pressure 153/91 H 159/103 H Pulse Oximetry 98 98 12/08/24 21:55 12/09/24 05:40 Temperature 98.1 F Pulse Rate 74 71 Respiratory Rate 18 Blood Pressure 115/72 Pulse Oximetry 95 Intake/Output Intake/Output: Intake & Output 12/06/24 12/07/24 12/08/24 12/09/24 23:59 23:59 23:59 23:59 Intake Total 2300 3310 2320 640 Output Total 3700 Balance -1400 3310 2320 640 Meds/Results Medications: Active Medications Generic Name Dose Route Start Last Admin Trade Name Freq PRN Reason Stop Dose Admin Acetaminophen 650 mg 12/08/24 12:58 12/09/24 09:46 Acetaminophen 325 Mg Tablet PO 650 mg Q6H PRN Administration Mild Pain (1-3) or Fever Hydrocodone Bitart/Acetaminophen 1 tab 12/08/24 12:58 12/08/24 17:57 Hydrocodone/Acetaminophen (*Crx) 5-325 Mg Tablet PO 1 tab Q4H PRN Administration Pain Rated 4-6 Hydrocodone Bitart/Acetaminophen 1 tab 12/08/24 12:58 12/08/24 21:46 Hydrocodone/Acetaminophen (*Crx) 10-325 Mg Tablet PO 1 tab Q4H PRN Administration Pain Rated 7-10 Enoxaparin Sodium 40 mg 12/05/24 09:00 12/09/24 09:34 Enoxaparin 40 Mg/0.4 Ml Syringe SUB-Q Not Given DAILY KATHRYN Famotidine 20 mg 12/08/24 21:00 12/09/24 09:34 Famotidine 20 Mg Tablet PO 20 mg Q12HR KATHRYN Administration Hydralazine HCl 10 mg 12/04/24 20:27 Hydralazine Hcl 20 Mg/Ml Vial IV PUSH Q6H PRN SBP > 165 or DBP > 105 Hydromorphone HCl 0.5 mg 12/04/24 19:00 12/05/24 00:46 Hydromorphone Hcl Inj (*Crx) 1 Mg/Ml Syr IV PUSH 0.5 mg Q2H PRN Administration Pain Rated 7-10 Ibuprofen 800 mg in 200 mls @ 400 mls/hr 12/04/24 19:00 12/05/24 14:22 Caldolor 800 Mg/200 Ml IVPB Infused Q6H PRN Infusion Breakthrough Pain Rated 1-3 or NPO Isosorbide Mononitrate 30 mg 12/08/24 21:00 12/08/24 21:52 Isosorbide Mononitrate 30 Mg Tab.Er.24h PO 30 mg HS KATHRYN Administration Losartan Potassium 25 mg 12/08/24 21:00 12/08/24 21:53 Losartan Potassium 25 Mg Tablet PO 25 mg HS KATHRYN Administration Melatonin 20 mg 12/08/24 21:00 12/08/24 21:54 Melatonin 5 Mg Tablet PO 20 mg HS KATHRYN Administration Metoprolol Tartrate 25 mg 12/08/24 21:00 12/08/24 21:55 Metoprolol Tartrate 25 Mg Tablet PO 25 mg HS KATHRYN Administration Naloxone HCl 0.1 mg 12/04/24 19:00 Naloxone Hcl 0.4 Mg/Ml Vial IV PUSH Q2M PRN Opiate Reversal Nitroglycerin 0.4 mg 12/08/24 17:53 Nitroglycerin Sl 0.4 Mg Tablet SUBLINGUAL Q5MIN PRN Chest Pain Ondansetron HCl 4 mg 12/04/24 19:00 12/07/24 20:14 Ondansetron Inj 4 Mg/2 Ml Vial IV PUSH 4 mg Q4H PRN Administration Nausea And Vomiting Ranolazine 500 mg 12/08/24 21:00 12/08/24 21:50 Ranolazine 500 Mg Tab.Er.12h PO 500 mg HS KATHRYN Administration Zolpidem Tartrate 5 mg 12/06/24 13:51 12/09/24 00:56 Zolpidem Tartrate (*Crx) 5 Mg Tablet PO 5 mg HS PRN Administration Insomnia Radiology Results: ITS Impressions Abdomen/Pelvis CT 12/04/24 14:38 IMPRESSION: Findings consistent with high-grade small bowel obstruction with hazy opacification of the surrounding mesentery suggesting bowel ischemia, as detailed above. Urgent surgical consultation is recommended. ADDENDUM: 12/04/24 1451 Findings and recommendations discussed with Dr. Tucker at 2:45 PM on 12/04/2024 Abdomen X-Ray 12/04/24 16:10 IMPRESSION: Nasogastric tube in good position and ready for immediate use. Labs Labs: Laboratory Results - last 24 hr 12/09/24 12/09/24 12/09/24 05:52 05:55 05:56 WBC 3.8 L RBC 3.38 L Hgb 10.8 L Hct 32.1 L MCV 95.0 MCH 32.0 MCHC 33.6 RDW 12.4 Plt Count 158 MPV 10.3 Absolute Retic 0.06 Percent Retic 1.79 Immature Retic Fraction 25.9 H Retic Hgb Content 33.2 Sodium 140 Potassium 3.8 Chloride 104 Carbon Dioxide 32 H Anion Gap 4 BUN 7 L Creatinine 0.77 Estim Creat Clear Calc 89 Estimated GFR > 60 Glucose 110 Calcium 8.6 Iron 38 L TIBC 216 L % Saturation 18 L Transferrin 161 L Ferritin 73.90 Total Bilirubin 0.7 AST 37 ALT 29 Alkaline Phosphatase 58 Lactate Dehydrogenase 189 Total Protein 6.0 L Albumin 3.0 L Vitamin B12 239.0 Folate 9.3 NIDHI, IgG Interpret Neg NIDHI, Complement Interp Negative
--- NOTE | 2024-12-09 12:44 | PM.IMPN ---
Progress Note: A&P Assessment and Plan (1) Small bowel obstruction: Code(s): K56.609 - Unspecified intestinal obstruction, unspecified as to partial versus complete obstruction Status: Acute Assessment and Plan: CT scan showed finding consistent with high-grade small bowel ischemia and findings suggestive of bowel ischemia. Status post exploratory laparotomy with adhesiolysis without ischemia following decompression. Wound care, diet, pain control, and DVT prophylaxis deferred to Surgical Service. (2) Hypertension: Code(s): I10 - Essential (primary) hypertension Status: Acute Assessment and Plan: Blood pressures were reviewed and they have been running a bit high, likely due to pain missed medications this morning. Currently n.p.o. with ice chips only. Hopefully we can resume antihypertensives tomorrow. P.r.n. hydralazine and Lopressor as needed. (3) Coronary artery disease: Code(s): I25.10 - Atherosclerotic heart disease of [place] coronary artery without angina pectoris Status: Acute Assessment and Plan: History of [place] x2 and stents x3 in July 2021. No acute or recent issues. Resume clopidogrel when okay with primary service. (4) Obstructive sleep apnea on CPAP: Code(s): G47.33 - Obstructive sleep apnea (adult) (pediatric) Status: Acute Assessment and Plan: CPAP will be provided for the patient to use while hospitalized. Subjective Date/time seen: 12/09/24 12:44 Interval history: Patient is currently tolerating full liquid diet. Reviewed anemia panel. Review of Systems Review of Systems: 12 systems were reviewed and are negative except for as per HPI. Exam Narrative: General: Nontoxic-appearing gentleman sitting up in bed in moderate pain. Weight: 76 kg. BMI: 22.1. HEENT: PERRL, EOMI. Sclera anicteric. Tacky mucous membranes. NG tube in the left naris draining opaque fluid with scattered mcgowan particulate matter. Neck: Supple. Respiratory: Lungs are clear to auscultation bilaterally. Cardiovascular: Regular rate and rhythm with S1-S2. Gastrointestinal: Abdomen is soft and slightly distended with hypoactive bowel sounds. He is tender to palpation throughout the periumbilical region without voluntary guarding or rebound tenderness. Skin: Warm and dry. Generalized pallor. Extremities: No cyanosis, clubbing, or edema. Radial and pedal pulses intact. Neurological: Alert. Cranial nerves 2-12 are grossly intact. No gross focal deficits to casual conversation. Psychiatric: Pleasant and cooperative with normal mood and affect. Judgment and insight intact. Objective Data Vital Signs Vital Signs: Vital Signs - 24 hr 12/08/24 14:00 12/08/24 14:14 12/08/24 21:27 Temperature 97.7 F 98.5 F Pulse Rate 69 77 69 Respiratory Rate 15 16 Blood Pressure 153/91 H 159/103 H Pulse Oximetry 98 98 12/08/24 21:55 12/09/24 05:40 Temperature 98.1 F Pulse Rate 74 71 Respiratory Rate 18 Blood Pressure 115/72 Pulse Oximetry 95 Intake/Output Intake/Output: Intake & Output 12/06/24 12/07/24 12/08/24 12/09/24 23:59 23:59 23:59 23:59 Intake Total 2300 3310 2320 640 Output Total 3700 Balance -1400 3310 2320 640 Meds/Results Medications: Active Medications Generic Name Dose Route Start Last Admin Trade Name Freq PRN Reason Stop Dose Admin Acetaminophen 650 mg 12/08/24 12:58 12/09/24 09:46 Acetaminophen 325 Mg Tablet PO 650 mg Q6H PRN Administration Mild Pain (1-3) or Fever Hydrocodone Bitart/Acetaminophen 1 tab 12/08/24 12:58 12/08/24 17:57 Hydrocodone/Acetaminophen (*Crx) 5-325 Mg Tablet PO 1 tab Q4H PRN Administration Pain Rated 4-6 Hydrocodone Bitart/Acetaminophen 1 tab 12/08/24 12:58 12/08/24 21:46 Hydrocodone/Acetaminophen (*Crx) 10-325 Mg Tablet PO 1 tab Q4H PRN Administration Pain Rated 7-10 Enoxaparin Sodium 40 mg 12/05/24 09:00 12/09/24 09:34 Enoxaparin 40 Mg/0.4 Ml Syringe SUB-Q Not Given DAILY KATHRYN Famotidine 20 mg 12/08/24 21:00 12/09/24 09:34 Famotidine 20 Mg Tablet PO 20 mg Q12HR KATRHYN Administration Hydralazine HCl 10 mg 12/04/24 20:27 Hydralazine Hcl 20 Mg/Ml Vial IV PUSH Q6H PRN SBP > 165 or DBP > 105 Hydromorphone HCl 0.5 mg 12/04/24 19:00 12/05/24 00:46 Hydromorphone Hcl Inj (*Crx) 1 Mg/Ml Syr IV PUSH 0.5 mg Q2H PRN Administration Pain Rated 7-10 Ibuprofen 800 mg in 200 mls @ 400 mls/hr 12/04/24 19:00 12/05/24 14:22 Caldolor 800 Mg/200 Ml IVPB Infused Q6H PRN Infusion Breakthrough Pain Rated 1-3 or NPO Isosorbide Mononitrate 30 mg 12/08/24 21:00 12/08/24 21:52 Isosorbide Mononitrate 30 Mg Tab.Er.24h PO 30 mg HS KATHRYN Administration Losartan Potassium 25 mg 12/08/24 21:00 12/08/24 21:53 Losartan Potassium 25 Mg Tablet PO 25 mg HS KATHRYN Administration Melatonin 20 mg 12/08/24 21:00 12/08/24 21:54 Melatonin 5 Mg Tablet PO 20 mg HS KATHRYN Administration Metoprolol Tartrate 25 mg 12/08/24 21:00 12/08/24 21:55 Metoprolol Tartrate 25 Mg Tablet PO 25 mg HS KATHRYN Administration Naloxone HCl 0.1 mg 12/04/24 19:00 Naloxone Hcl 0.4 Mg/Ml Vial IV PUSH Q2M PRN Opiate Reversal Nitroglycerin 0.4 mg 12/08/24 17:53 Nitroglycerin Sl 0.4 Mg Tablet SUBLINGUAL Q5MIN PRN Chest Pain Ondansetron HCl 4 mg 12/04/24 19:00 12/07/24 20:14 Ondansetron Inj 4 Mg/2 Ml Vial IV PUSH 4 mg Q4H PRN Administration Nausea And Vomiting Ranolazine 500 mg 12/08/24 21:00 12/08/24 21:50 Ranolazine 500 Mg Tab.Er.12h PO 500 mg HS KATHRYN Administration Zolpidem Tartrate 5 mg 12/06/24 13:51 12/09/24 00:56 Zolpidem Tartrate (*Crx) 5 Mg Tablet PO 5 mg HS PRN Administration Insomnia Radiology Results: ITS Impressions Abdomen/Pelvis CT 12/04/24 14:38 IMPRESSION: Findings consistent with high-grade small bowel obstruction with hazy opacification of the surrounding mesentery suggesting bowel ischemia, as detailed above. Urgent surgical consultation is recommended. ADDENDUM: 12/04/24 1451 Findings and recommendations discussed with Dr. Tucker at 2:45 PM on 12/04/2024 Abdomen X-Ray 12/04/24 16:10 IMPRESSION: Nasogastric tube in good position and ready for immediate use. Labs Labs: Laboratory Results - last 24 hr 12/09/24 12/09/24 12/09/24 05:52 05:55 05:56 WBC 3.8 L RBC 3.38 L Hgb 10.8 L Hct 32.1 L MCV 95.0 MCH 32.0 MCHC 33.6 RDW 12.4 Plt Count 158 MPV 10.3 Absolute Retic 0.06 Percent Retic 1.79 Immature Retic Fraction 25.9 H Retic Hgb Content 33.2 Sodium 140 Potassium 3.8 Chloride 104 Carbon Dioxide 32 H Anion Gap 4 BUN 7 L Creatinine 0.77 Estim Creat Clear Calc 89 Estimated GFR > 60 Glucose 110 Calcium 8.6 Iron 38 L TIBC 216 L % Saturation 18 L Transferrin 161 L Ferritin 73.90 Total Bilirubin 0.7 AST 37 ALT 29 Alkaline Phosphatase 58 Lactate Dehydrogenase 189 Total Protein 6.0 L Albumin 3.0 L Vitamin B12 239.0 Folate 9.3 NIDHI, IgG Interpret Neg NIDHI, Complement Interp Negative Hospitalist [facility] Advance Care Plan I have confirmed that the patient's Advanced Care Plan is present, code status is documented, or surrogate decision maker is listed in patient medical record.: Yes Medication Reconciliation I have utilized all available resources to obtain, update and review the patients current medications (includes all prescriptions, OTC, herbals, cannabis, and nutritional supplements).: Yes
[2024-12-09 14:00] VITALS: BP 148/97; PULSE 90; RESP 20; TEMP 36.8; O2SAT 97
[2024-12-09] MEDS: HYDROcodone/acetaminophen (*CRX) 10-325 MG TABLET 1 TAB PO (14:51)
[2024-12-09] MEDS: BISACODYL 10 MG SUPPOSITORY RECTAL (14:52)
[2024-12-09] MEDS: ISOSORBIDE MONONITRATE 30 MG TAB.ER.24H PO (21:28)
[2024-12-09] MEDS: LOSARTAN POTASSIUM 25 MG TABLET PO (21:29)
[2024-12-09] MEDS: METOPROLOL TARTRATE 25 MG TABLET PO (21:29)
[2024-12-09] MEDS: RANOLAZINE 500 MG TAB.ER.12H PO (21:29)
[2024-12-09] MEDS: MELATONIN 5 MG TABLET 20 MG PO (21:29)
[2024-12-09 21:47] VITALS: BP 162/97; PULSE 82; RESP 16; TEMP 36.8; O2SAT 100
[2024-12-09] MEDS: SIMETHICONE 80 MG TAB.CHEW PO (21:55)
[2024-12-10 06:00] VITALS: BP 130/88; PULSE 69; RESP 16; TEMP 36.7; O2SAT 97
[2024-12-10 07:03] LABS: Hematocrit 31.1 % (42.0-52.0); Hemoglobin 10.4 g/dL (14.0-18.0); Mean Corpuscular HGB Conc 33.4 g/dl (32-36); Mean Corpuscular Hemoglobin 31.5 pg (26-34); Mean Corpuscular Volume 94.2 fl (80-100); Mean Platelet Volume 10.4 fl (7.4-10.4); Platelet Count Result 155 k/mm3 (150-375); Red Cell Distribution Width 12.4 % (11.5-14.5); White Blood Count 4.3 K/mm3 (4.5-10.0)
[2024-12-10 07:09] LABS: Anion Gap 6 mmol/L (4-12); Blood Urea Nitrogen 8 mg/dL (9-20); Calcium 8.6 mg/dL (8.4-10.2); Carbon Dioxide 30 mmol/L (22-30); Chloride 104 mmol/L (98-107); Estimated CRCL calculation 91 ml/min; Estimated Glomerular Filt Rate > 60; Glucose 111 mg/dL (65-110); Potassium 3.4 mmol/L (3.4-5.0); Sodium 140 mmol/L (137-145)
--- NOTE | 2024-12-10 07:45 | PM.IMPN ---
Progress Note: A&P Assessment and Plan (1) Small bowel obstruction: Code(s): K56.609 - Unspecified intestinal obstruction, unspecified as to partial versus complete obstruction Status: Acute Assessment and Plan: CT scan showed finding consistent with high-grade small bowel ischemia and findings suggestive of bowel ischemia. Status post exploratory laparotomy with adhesiolysis without ischemia following decompression. Wound care, diet, pain control, and DVT prophylaxis deferred to Surgical Service. (2) Hypertension: Code(s): I10 - Essential (primary) hypertension Status: Acute Assessment and Plan: Blood pressures were reviewed and they have been running a bit high, likely due to pain missed medications this morning. Currently n.p.o. with ice chips only. Hopefully we can resume antihypertensives tomorrow. P.r.n. hydralazine and Lopressor as needed. (3) Coronary artery disease: Code(s): I25.10 - Atherosclerotic heart disease of [place] coronary artery without angina pectoris Status: Acute Assessment and Plan: History of CO x2 and stents x3 in July 2021. No acute or recent issues. Resume clopidogrel when okay with primary service. (4) Obstructive sleep apnea on CPAP: Code(s): G47.33 - Obstructive sleep apnea (adult) (pediatric) Status: Acute Assessment and Plan: CPAP will be provided for the patient to use while hospitalized. Subjective Date/time seen: 12/10/24 07:45 Interval history: Hemoglobin is stable. Reviewed anemia panel. Tolerating regular diet. As per surgery, Patient will be discharged today. Review of Systems Review of Systems: 12 systems were reviewed and are negative except for as per HPI. Exam Narrative: General: Nontoxic-appearing gentleman sitting up in bed in moderate pain. Weight: 76 kg. BMI: 22.1. HEENT: PERRL, EOMI. Sclera anicteric. Tacky mucous membranes. NG tube in the left naris draining opaque fluid with scattered mcgowan particulate matter. Neck: Supple. Respiratory: Lungs are clear to auscultation bilaterally. Cardiovascular: Regular rate and rhythm with S1-S2. Gastrointestinal: Abdomen is soft and slightly distended with hypoactive bowel sounds. He is tender to palpation throughout the periumbilical region without voluntary guarding or rebound tenderness. Skin: Warm and dry. Generalized pallor. Extremities: No cyanosis, clubbing, or edema. Radial and pedal pulses intact. Neurological: Alert. Cranial nerves 2-12 are grossly intact. No gross focal deficits to casual conversation. Psychiatric: Pleasant and cooperative with normal mood and affect. Judgment and insight intact. Objective Data Vital Signs Vital Signs: Vital Signs - 24 hr 12/09/24 14:00 12/09/24 21:47 12/10/24 06:00 Temperature 98.2 F 98.2 F 98.1 F Pulse Rate 90 82 69 Respiratory Rate 20 16 16 Blood Pressure 148/97 H 162/97 H 130/88 Pulse Oximetry 97 100 97 Intake/Output Intake/Output: Intake & Output 12/07/24 12/08/24 12/09/24 12/10/24 23:59 23:59 23:59 23:59 Intake Total 3310 2320 1120 500 Balance 3310 2320 1120 500 Meds/Results Medications: Active Medications Generic Name Dose Route Start Last Admin Trade Name Freq PRN Reason Stop Dose Admin Acetaminophen 650 mg 12/08/24 12:58 12/09/24 23:27 Acetaminophen 325 Mg Tablet PO 650 mg Q6H PRN Administration Mild Pain (1-3) or Fever Hydrocodone Bitart/Acetaminophen 1 tab 12/08/24 12:58 12/08/24 17:57 Hydrocodone/Acetaminophen (*Crx) 5-325 Mg Tablet PO 1 tab Q4H PRN Administration Pain Rated 4-6 Hydrocodone Bitart/Acetaminophen 1 tab 12/08/24 12:58 12/09/24 14:51 Hydrocodone/Acetaminophen (*Crx) 10-325 Mg Tablet PO 1 tab Q4H PRN Administration Pain Rated 7-10 Enoxaparin Sodium 40 mg 12/05/24 09:00 12/09/24 09:34 Enoxaparin 40 Mg/0.4 Ml Syringe SUB-Q Not Given DAILY KATHRYN Famotidine 20 mg 12/08/24 21:00 12/09/24 21:28 Famotidine 20 Mg Tablet PO 20 mg Q12HR KATHRYN Administration Hydralazine HCl 10 mg 12/04/24 20:27 Hydralazine Hcl 20 Mg/Ml Vial IV PUSH Q6H PRN SBP > 165 or DBP > 105 Hydromorphone HCl 0.5 mg 12/04/24 19:00 12/05/24 00:46 Hydromorphone Hcl Inj (*Crx) 1 Mg/Ml Syr IV PUSH 0.5 mg Q2H PRN Administration Pain Rated 7-10 Ibuprofen 800 mg in 200 mls @ 400 mls/hr 12/04/24 19:00 12/05/24 14:22 Caldolor 800 Mg/200 Ml IVPB Infused Q6H PRN Infusion Breakthrough Pain Rated 1-3 or NPO Isosorbide Mononitrate 30 mg 12/08/24 21:00 12/09/24 21:28 Isosorbide Mononitrate 30 Mg Tab.Er.24h PO 30 mg HS KATHRYN Administration Losartan Potassium 25 mg 12/08/24 21:00 12/09/24 21:29 Losartan Potassium 25 Mg Tablet PO 25 mg HS KATHRYN Administration Melatonin 20 mg 12/08/24 21:00 12/09/24 21:29 Melatonin 5 Mg Tablet PO 20 mg HS KATHRYN Administration Metoprolol Tartrate 25 mg 12/08/24 21:00 12/09/24 21:29 Metoprolol Tartrate 25 Mg Tablet PO 25 mg HS KATHRYN Administration Naloxone HCl 0.1 mg 12/04/24 19:00 Naloxone Hcl 0.4 Mg/Ml Vial IV PUSH Q2M PRN Opiate Reversal Nitroglycerin 0.4 mg 12/08/24 17:53 Nitroglycerin Sl 0.4 Mg Tablet SUBLINGUAL Q5MIN PRN Chest Pain Ondansetron HCl 4 mg 12/04/24 19:00 12/07/24 20:14 Ondansetron Inj 4 Mg/2 Ml Vial IV PUSH 4 mg Q4H PRN Administration Nausea And Vomiting Ranolazine 500 mg 12/08/24 21:00 12/09/24 21:29 Ranolazine 500 Mg Tab.Er.12h PO 500 mg HS KATHRYN Administration Simethicone 80 mg 12/09/24 21:53 12/09/24 21:55 Simethicone 80 Mg Tab.Chew PO 80 mg QID PRN Administration gas pain Zolpidem Tartrate 5 mg 12/06/24 13:51 12/09/24 23:27 Zolpidem Tartrate (*Crx) 5 Mg Tablet PO 5 mg HS PRN Administration Insomnia Radiology Results: ITS Impressions Abdomen/Pelvis CT 12/04/24 14:38 IMPRESSION: Findings consistent with high-grade small bowel obstruction with hazy opacification of the surrounding mesentery suggesting bowel ischemia, as detailed above. Urgent surgical consultation is recommended. ADDENDUM: 12/04/24 1457 Findings and recommendations discussed with Dr. Tucker at 2:45 PM on 12/04/2024 Abdomen X-Ray 12/04/24 16:10 IMPRESSION: Nasogastric tube in good position and ready for immediate use. Labs Labs: Laboratory Results - last 24 hr 12/09/24 12/10/24 05:52 05:57 WBC 4.3 L RBC 3.30 L Hgb 10.4 L Hct 31.1 L MCV 94.2 MCH 31.5 MCHC 33.4 RDW 12.4 Plt Count 155 MPV 10.4 Absolute Retic 0.06 Percent Retic 1.79 Immature Retic Fraction 25.9 H Retic Hgb Content 33.2 Sodium 140 Potassium 3.4 Chloride 104 Carbon Dioxide 30 Anion Gap 6 BUN 8 L Creatinine 0.79 Estim Creat Clear Calc 91 Estimated GFR > 60 Glucose 111 H Calcium 8.6 Iron 38 L TIBC 216 L % Saturation 18 L Transferrin 161 L Ferritin 73.90 Lactate Dehydrogenase 189 Vitamin B12 239.0 Folate 9.3 NIDHI, IgG Interpret Neg NIDHI, Complement Interp Negative Hospitalist MIPS Advance Care Plan I have confirmed that the patient's Advanced Care Plan is present, code status is documented, or surrogate decision maker is listed in patient medical record.: Yes Medication Reconciliation I have utilized all available resources to obtain, update and review the patients current medications (includes all prescriptions, OTC, herbals, cannabis, and nutritional supplements).: Yes
[2024-12-10] MEDS: FAMOTIDINE 20 MG TABLET PO (08:59)
--- NOTE | 2024-12-10 13:50 | PM.DS ---
DS: Admitting Diagnosis Discharge Date 12/10/2024 Admitting Diagnosis Small-bowel obstruction due to a adhesions with ischemia History of [place] History of coronary stenting Anti thrombotic therapy Essential hypertension DS: Discharge Diagnosis Discharge Diagnosis (1) Small bowel obstruction: Code(s): K56.609 - Unspecified intestinal obstruction, unspecified as to partial versus complete obstruction Status: Acute Assessment and Plan: Status post adhesiolysis December 04, 2024 (2) History of ST elevation myocardial infarction (STEMI): Onset Date: 07/2021 Code(s): I25.2 - Old myocardial infarction Status: Chronic (3) Coronary artery disease: Qualifiers: Coronary Disease-Associated Artery/Lesion type: [place] artery [place] vs. transplanted heart: [place] heart Associated angina: with stable angina Qualified Code(s): I25.118 - Atherosclerotic heart disease of [place] coronary artery with other forms of angina pectoris Code(s): I25.10 - Atherosclerotic heart disease of [place] coronary artery without angina pectoris Status: Chronic (4) Antiplatelet or antithrombotic long-term use: Code(s): Z79.02 - alf (current) use of antithrombotics/antiplatelets Status: Chronic Assessment and Plan: Takes Plavix and aspirin (5) Hypertension: Qualifiers: Hypertension type: primary hypertension Qualified Code(s): I10 - Essential (primary) hypertension Code(s): I10 - Essential (primary) hypertension Status: Chronic DS: Summary Hospital Course Hospital Course: Patient presented to the emergency room on the day of admission, 12/04/2024, with diffuse abdominal pain, nausea and vomiting. His abdomen was distended and tender. His white blood cell count was just over 11,000. CT imaging showed high-grade small-bowel obstruction with evidence of small-bowel ischemia. He was taken emergently to the operating room by Dr. Ray and adhesiolysis was performed. The bowel just proximal to the transition point was very dusky but fortunately reperfused quickly and adequately. Postoperatively, his bowel function returned gradually. His nasogastric tube was removed on postop day 2. Liquids were started on postop day 4. Diet was advanced to regular which he was tolerating well on the day of discharge. He was comfortable with minimal analgesics, ambulatory and desiring to be discharged on postop day 6. He is discharged in good condition. Status at Discharge Functional status at discharge: independent ambulation Overall status at discharge: patient is progressing back to baseline Time Spent with Patient Time attestation: Total time spent providing and/or coordinating discharge services: Time spent: Less than 30 minutes Exam Const: General: comfortable and no acute distress Orientation/consciousness: patient oriented x3 GI: Inspection: incision (Dry and healing well) GI Palp: Yes Soft to palpation, Yes Tenderness to palpation present (GI), No Guarding due to palpation present (GI) and No Rebound tenderness present Auscultation: normal bowel sounds Neuro: General: patient oriented x3 and no focal motor deficits Extrem: General: no calf tenderness and no edema Psych: Affect: normal affect Insight: Good insight present (Psych) Judgement: Good judgement present (Psych) DS: Data Data Completed and Pending Labs on day of discharge: Labs from last 24 hours 12/10/24 05:57 WBC 4.3 L RBC 3.30 L Hgb 10.4 L Hct 31.1 L MCV 94.2 MCH 31.5 MCHC 33.4 RDW 12.4 Plt Count 155 MPV 10.4 Sodium 140 Potassium 3.4 Chloride 104 Carbon Dioxide 30 Anion Gap 6 BUN 8 L Creatinine 0.79 Estim Creat Clear Calc 91 Estimated GFR > 60 Glucose 111 H Calcium 8.6 Discharge Plan Discharge Attending physician on discharge: Cass Ray Consulting providers: Moy Lyles Discharging Clinician: Toney Trejo Anticipated Discharge Date/Time: 12/10/24 14:05 Patient Disposition: Home, Self-Care Activity: no straining Diet: as tolerated and regular Wound Care Instructions: incision open to air Discharge Instructions: ok to shower with soap and water Patient Instructions: Antibiotic Form, Bowel Obstruction (DC) Patient Language: Frisian Stand Alone Forms: General Discharge Information Follow-up/Referrals: Cass Ray MD [Physician] - Call for Appointment (See Dr. Villeda this week for postop evaluation and removal of wound rajesh) Bhavin Trevizo MD [Primary Care Provider] - Discharge Medications: New hydrocodone-acetaminophen 5-325 mg tablet 1 tablet PO Q6H PRN (Reason: pain) Qty: 20 0RF docusate sodium [Colace] 100 mg capsule 100 mg PO BID Qty: 20 0RF Continued isosorbide mononitrate 30 mg Tablet Extended Release 24 Hr 30 mg PO HS ranolazine 500 mg Tablet Extended Release 12 Hr 500 mg PO HS atorvastatin 40 mg tablet 80 mg PO HS clopidogrel [Plavix] 75 mg tablet 75 mg PO HS losartan 25 mg tablet 25 mg PO HS nitroglycerin [Nitrostat] 0.4 mg Tablet, Sublingual 0.4 mg sublingual Q5MIN PRN (Reason: Chest Pain) Qty: 30 1RF metoprolol tartrate 25 mg tablet 25 mg PO HS melatonin 10 mg capsule 20 mg PO HS Date of admission: 12/04/24 19:00 Primary Care Provider: Bhavin Trevizo Admitting Provider: Cass Ray Attending physician on admission: Cass Ray Condition: Improved
[2024-12-11 04:49] LABS: Haptoglobin 265 mg/dL (43-212)
== END 2024-12-10 15:27 | disposition home or self-care (01) | DRG 224 ==
LOC: ANHED 15:04 → ANHSURGERY 16:01 → ANHIMU 23:10 → ANH3MEDSUR 12-07 12:05 → ANHIMU 12-13 13:09
PROVIDERS: General Practice; Physician Assistant; Admitting Provider Surgery; Emergency Provider Emergency Medicine; PCP Emergency Medicine; Visit Provider Surgery
PROC: 0DNB0ZZ Release Ileum, Open Approach (ICD-10-PCS; CPT 49000; principal; 2024-12-04 17:00)
DX: K56.50 Intestinal adhesions [bands], unspecified as to partial versus complete obstruction (principal); K55.9 Vascular disorder of intestine, unspecified; E78.5 Hyperlipidemia, unspecified; G47.33 Obstructive sleep apnea (adult) (pediatric); I25.10 Atherosclerotic heart disease of native coronary artery without angina pectoris; I25.2 Old myocardial infarction; I10 Essential (primary) hypertension; Z20.822 Contact with and (suspected) exposure to COVID-19; Z95.5 Presence of coronary angioplasty implant and graft; Z79.82 Long term (current) use of aspirin; Z79.02 Long term (current) use of antithrombotics/antiplatelets; Z88.0 Allergy status to penicillin; Z99.89 Dependence on other enabling machines and devices
CPT/HCPCS: 36415; 74177; 80048; 80053; 81001; 82607; 82728; 82746; 83010; 83540; 83550; 83605; 83615; 83690; 83735; 84100; 84466; 84484; 85025; 85027; 85046; 85610; 85730; 86880; 87040; 87637; 93005; 96361; 96365; 96368; 96375; 99285; A9270; J0330; J0692; J1100; J1171; J1650; J1741; J1836; J2003; J2250; J2405; J2704; J3010; J7030; J7120; Q9967